=== PATIENT | female | born 1970 | race Caucasian/White ===

== ENCOUNTER 2020-07-26 14:06 | Outpatient (REF) | payer OTHER, SELFPAY ==
[2020-07-26 16:47] LABS: MANUAL DIFF FLAG NO
[2020-07-26 16:50] LABS: Basophils Absolute Auto 0.1 X10*3/uL (0.0-0.2); Basophils Percent Auto 0.6 % (0-2); Eosinophils Absolute Auto 0.2 X10*3/uL (0.0-0.4); Eosinophils Percent Auto 1.7 % (0-4); Hematocrit 44.2 % (37-47); Imm Gran Abs Auto 0.04 X10*3/uL (0.00-0.03); Imm Gran Pct Auto 0.4 % (0.0-0.4); Lymphocytes Absolute Auto 2.2 X10*3/uL (1.2-4.9); Lymphocytes Percent Auto 20.2 % (20-40); Mean Corpuscular HGB Conc 33.9 g/dl (31.0-35.0); Mean Corpuscular Hemoglobin 29.8 pg (27.0-33.0); Mean Corpuscular Volume 87.7 fL (80-98); Mean Platelet Volume 9.6 fL (9.4-12.3); Monocytes Absolute Auto 0.6 X10*3/uL (0.1-1.2); Monocytes Percent Auto 5.9 % (2-11); Neutrophils Absolute Auto 7.6 X10*3/uL (2.0-8.3); Neutrophils Percent Auto 71.2 % (45-73); Platelet Count 400 X10*3/uL (160-400); Red Blood Count 5.04 X10*6/uL (4.20-5.50); Red Cell Distribution Width 12.7 % (11.0-16.0); White Blood Count 10.7 X10*3/uL (4.8-10.8)
[2020-07-26 17:13] LABS: Alanine Aminotransferase 21 U/L (0-31); Albumin Level 4.6 g/dL (3.5-5.0); Alkaline Phosphatase 72 U/L (39-117); Anion Gap 16 (12-20); Aspartate Amino Transferase 18 U/L (5-31); Bilirubin Total 0.9 mg/dL (0.0-1.0); Blood Urea Nitrogen 11 mg/dL (9-16); Calcium 9.7 mg/dL (8.4-10.2); Carbon Dioxide 33 mmol/L (22-29); Chloride 94 mmol/L (96-108); Cholesterol 236 mg/dL; Estimated Glomerular Filt Rate > 60; Glucose Fasting 72 mg/dL (60-99); HDL Cholesterol 62 mg/dL; LDL Cholesterol Calculated 152 mg/dl; Potassium 3.3 mmol/l (3.3-5.1); Sodium 140 mmol/L (135-145); Total Protein 7.9 g/dL (6.5-8.0); Triglycerides 114 mg/dL
[2020-07-26 17:35] LABS: TSH reflex Free T4 1.13 mIU/mL (0.32-4.0)
== END 2020-07-26 14:07 | disposition home or self-care (01) ==
LOC: HO.HMGCLDS 14:06
PROVIDERS: PCP Nurse Practitioner Family; Visit Provider Nurse Practitioner Family
DX: I10 Essential (primary) hypertension (principal)
CPT/HCPCS: 36415; 80053; 80061; 84443; 85025

== ENCOUNTER 2021-03-21 10:30 | Outpatient (REF) | payer OTHER, SELFPAY ==
--- NOTE | 2021-03-21 10:36 | EMG_ITS ---
Right median and ulnar motor and sensory studies were performed. Right radial sensory study was performed and paraspinal muscles were tested. IMPRESSION: This study was unremarkable with no evidence of median or ulnar neuropathy or radiculopathy. MD MILAGROS Saleem/EMILE / [id number]
== END 2021-03-21 10:31 | disposition home or self-care (01) ==
LOC: HO.NEURO 10:30
PROVIDERS: Visit Provider Nurse Practitioner Family
DX: M50.90 Cervical disc disorder, unspecified, unspecified cervical region (principal); R20.0 Anesthesia of skin
CPT/HCPCS: 95886; 95909

== ENCOUNTER 2021-09-24 12:25 | Outpatient (REF) | payer OTHER, SELFPAY ==
[2021-09-24 12:52] LABS: Binax Internal Control QC Valid; Binax Now Covid-19 Ag Negative (Negative); Binax Performed by: HO.BONILM
== END 2021-09-24 12:26 | disposition home or self-care (01) ==
LOC: HO.HMGCLDS 12:25
PROVIDERS: Visit Provider Internal Medicine
DX: Z13.89 Encounter for screening for other disorder (principal)

== ENCOUNTER 2023-02-12 08:49 | Outpatient (REF) | payer OTHER, SELFPAY ==
[2023-02-12 11:40] LABS: Appearance Urine Clear; Color Urine Yellow; Glucose Urine UA Negative (Negative); Leukocyte Esterase Urine Negative (Negative); Nitrite Urine Negative (Negative); PH 7.5 (5.0-9.0); Specific Gravity - Urine <= 1.005 (1.005-1.025); Urine Blood Negative (Negative); Urine Ketones Negative (Negative); Urine Protein Negative (Neg-Trace)
[2023-02-12 11:41] LABS: MANUAL DIFF FLAG NO
[2023-02-12 11:56] LABS: Basophils Absolute Auto 0.1 X10*3/uL (0.0-0.2); Basophils Percent Auto 0.8 % (0-2); Eosinophils Absolute Auto 0.2 X10*3/uL (0.0-0.4); Eosinophils Percent Auto 2.2 % (0-4); Hematocrit 43.4 % (37.0-47.0); Hemoglobin 14.4 g/dl (12.0-16.0); Imm Gran Abs Auto 0.04 X10*3/uL (0.00-0.03); Imm Gran Pct Auto 0.4 % (0.0-0.4); Immature Retic Fraction 3.7 % (3.0-15.9); Lymphocytes Absolute Auto 2.1 X10*3/uL (1.2-4.9); Lymphocytes Percent Auto 19.6 % (20-40); Mean Corpuscular HGB Conc 33.2 g/dl (31.0-35.0); Mean Corpuscular Hemoglobin 28.5 pg (27.0-33.0); Mean Corpuscular Volume 85.8 fL (80.0-98.0); Mean Platelet Volume 9.6 fL (9.4-12.3); Monocytes Absolute Auto 0.6 X10*3/uL (0.1-1.2); Monocytes Percent Auto 5.9 % (2-11); Neutrophils Absolute Auto 7.5 x10*3/uL (2.0-8.3); Neutrophils Percent Auto 71.1 % (45-73); Platelet Count 364 X10*3/uL (160-400); Red Blood Count 5.06 X10*6/uL (4.20-5.50); Red Cell Distribution Width 12.7 % (11.0-16.0); Retic HGB Equivalent 33.8 pg (30.0-35.0); Reticulocyte Percent 1.3 % (0.5-1.8); Reticulocytes Absolute 0.064 X10*6/uL (0.026-0.095); White Blood Count 10.5 X10*3/uL (4.8-10.8)
[2023-02-12 12:09] LABS: Glucose Random 97 mg/dL (60-115)
[2023-02-12 12:21] LABS: Alanine Aminotransferase 18 U/L (0-31); Albumin Level 4.3 g/dL (3.5-5.0); Alkaline Phosphatase 93 U/L (39-117); Anion Gap 12 (12-20); Aspartate Amino Transferase 17 U/L (5-31); Blood Urea Nitrogen 12 mg/dL (9-16); Calcium 9.9 mg/dL (8.4-10.2); Carbon Dioxide 32 mmol/L (22-29); Chloride 100 mmol/L (96-108); Cholesterol 203 mg/dL; Estimated Glomerular Filt Rate > 60; Glucose Fasting 97 mg/dL (60-99); Glucose Random 97 mg/dL (60-115); HDL Cholesterol 61 mg/dL; Iron 66 mcg/dL (30-160); LDL Cholesterol Calculated 116 mg/dl; Percent Iron Saturation 20 % (15-50); Potassium 3.7 mmol/L (3.3-5.1); Sodium 140 mmol/L (135-145); Total Iron Binding Capacity 326 mcg/dL (228-428); Total Protein 7.3 g/dL (6.5-8.0); Triglycerides 130 mg/dL; Unsaturated Iron Binding 260 ug/dL
[2023-02-12 12:38] LABS: Ferritin 109 ng/mL (10-250); Folate 17.9 ng/mL (> or = 4.0); Insulin 10 uU/mL (2-29); TSH reflex Free T4 1.21 uIU/mL (0.32-4.0); Vitamin B12 820 pg/mL (200-900)
[2023-02-14 04:57] LABS: C Peptide 2.71 ng/mL (0.80-3.85); Follicle Stimulating Hormone 34.2 mIU/mL; Lutenizing Hormone 40.7 mIU/mL
[2023-02-17 09:34] LABS: Lyme Abs Screen <0.90 index
[2023-03-11 09:08] LABS: Proinsulin 8.9
[2023-03-11 09:09] LABS: Estradiol Ultra Sensitive 96
[2023-03-11 09:11] LABS: Beta-Hydroxybutyrate 0.05
== END 2023-02-12 08:50 | disposition home or self-care (01) ==
LOC: HO.HMGCLDS 08:49
PROVIDERS: PCP Nurse Practitioner Family; Visit Provider Nurse Practitioner Family
DX: R53.83 Other fatigue (principal); R42 Dizziness and giddiness; I10 Essential (primary) hypertension
CPT/HCPCS: 36415; 80053; 80061; 81003; 82010; 82607; 82670; 82728; 82746; 82947; 83001; 83002; 83525; 83540; 84206; 84443; 84681; 85025; 85045; 86617; 86618; 87086

== ENCOUNTER 2023-11-24 08:07 | Outpatient (AMB) | payer OTHER, SELFPAY ==
--- NOTE | 2023-11-24 07:09 | A.OFFPC_ITS ---
Intake Visit Reasons: Med/labs review [phone] Allergies lisinopril Allergy (Unknown, Verified 02/12/23 08:08) Cough dust mites, ragweed Allergy (Unknown, Uncoded 02/12/23 08:08) Unknown Medication List - Last Reconciled 11/24/23 by MONISHA Jimenez-ANTONIA cholecalciferol (vitamin D3) 50 mcg PO DAILY codeine-guaifenesin 10-200 mg/5 mL 5 mL PO Q6H PRN dexlansoprazole 30 mg PO DAILY furosemide 20 mg PO QAM Lactobacillus acidophilus (Probiotic) 10,000 mmu cells PO DAILY levocetirizine 5 mg PO BEDTIME lisdexamfetamine (Vyvanse) 70 mg PO DAILY lorazepam 1 mg PO DAILY PRN 10 days losartan 25 mg PO DAILY nirmatrelvir-ritonavir 300 mg (150 mg x 2)-100 mg (Paxlovid) take TWO 150 mg tablets of nirmatrelvir with ONE 100 mg tablet of ritonavir twice daily for 5 days PO nortriptyline 50 mg PO BID semaglutide (Ozempic) 0.25 mg (0.368 mL) subcut QWEEK tirzepatide 2.5 mg (0.5 mL) subcut QWEEK 12 weeks Tobacco use date assessed: 02/12/23 HPI Med/labs review [phone] HPI Details Pt's fasting blood sugar was elevated. She also reports weight gain. Will try pt on ozempic. Educated pt on proper diet and portion sizes, which she reports she has already tried. Denies polyuria, polydipsia, and neuropathy. Pt is looking for adderall, told her I can not prescribe this and she needs to get it from her psychiatrist. 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 Daughter No problems noted. 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[employer] Current occupational exposures/hazards: Yes Cognitive needs: No Hearing needs: No Vision needs: No Review of Systems Const Reports as per HPI Physical exam (Primary Care) Tobacco/Smoking Status: Tobacco use Status Tobacco use date assessed 02/12/23 11/24/23 07:10 Patient Tobacco Use Status Never used Tobacco 11/24/23 07:10 e-Cigarette/Vaping Use Never Used 11/24/23 07:10 Const General: cooperative Orientation/consciousness: patient oriented x3 Neuro General: patient oriented x3 Psych Appearance: grossly normal Mental Status: mental status grossly normal Speech and movement: Clear speech present Affect: normal affect Attitude: cooperative Thought process: Normal thought process present Thought content: Normal thought content present Insight: Good insight present (Psych) Judgement: Good judgement present (Psych) Telehealth Telehealth Location of provider rendering services: practice address Location of patient: address on file Patient Identification confirmed using: Name, : Yes Telehealth method: video Patient verbally consented to treatment: Yes Patient verbally consented to billing insurance company: Yes Patient informed of any privacy concerns related to visit: Yes Minutes spent on Phone/Video with Pt.: 10 Assessment and Plan Assessment & Plan (1) ADD (attention deficit disorder): Code(s): F98.8 - Other specified behavioral and emotional disorders with onset usually occurring in childhood and adolescence (2) Elevated fasting blood sugar: Code(s): R73.01 - Impaired fasting glucose Plan: sending ozempic to start (3) Obesity: Code(s): E66.9 - Obesity, unspecified Plan: ozempic sent Plan The patient agreed to the use of a medical information specialist for this encounter. Scribed for CARLO Ybarra by Nanci Vega medical information specialist, on 11/24/2023 at 07:10 EST. Medications: New semaglutide (Ozempic) for 4 weeks 0.25 mg (0.368 mL) subcut QWEEK 3 mL 2RF Coding Level of Care Code Tele Est Pt Level 3 (92703) Diagnoses ADD (attention deficit disorder) F98.8 Elevated fasting blood sugar R73.01 Obesity E66.9
== END 2023-11-24 08:24 | disposition home or self-care (01) ==
LOC: HO.HMGC 08:07
PROVIDERS: PCP Nurse Practitioner Family; Visit Provider Nurse Practitioner Family
DX: F98.8 Other specified behavioral and emotional disorders with onset usually occurring in childhood and adolescence (principal); R73.01 Impaired fasting glucose; E66.9 Obesity, unspecified
CPT/HCPCS: 99213

== ENCOUNTER 2024-02-24 08:17 | Outpatient (AMB) | payer OTHER, SELFPAY ==
--- NOTE | 2024-02-24 08:18 | A.OFFPC_ITS ---
Vital Signs 02/24/24 08:20 Height 5 ft 2.5 in Weight 158 lb BMI 28.4 BP 118/80 Blood Pressure Location Lt brachial Position Sitting Pulse 80 Pulse Source Auscultation Intake Visit Reasons: PE Intake Note: pt is here for annual PE. Mammogram and PAP due Allergies lisinopril Allergy (Unknown, Verified 02/24/24 08:37) Cough dust mites, ragweed Allergy (Unknown, Uncoded 02/24/24 08:37) Unknown Medication List - Last Reconciled 02/24/24 by Jamarcus Castro, MONISHA albuterol sulfate 90 mcg/actuation (Ventolin HFA) 2 puffs inhalation Q6H PRN albuterol sulfate 2.5 mg (3 mL) inhalation QID PRN cholecalciferol (vitamin D3) 50 mcg PO DAILY codeine-guaifenesin 10-200 mg/5 mL 5 mL PO Q6H PRN dexlansoprazole 30 mg PO DAILY dextroamphetamine-amphetamine 30 mg (Adderall) 50 mg PO DAILY furosemide 20 mg PO QAM Lactobacillus acidophilus (Probiotic) 10,000 mmu cells PO DAILY levocetirizine 5 mg PO BEDTIME lorazepam 1 mg PO DAILY PRN 10 days losartan 25 mg PO DAILY nebulizers Nebulizer with supplies nortriptyline 50 mg PO BID semaglutide (Ozempic) 0.5 mg (0.736 mL) subcut QWEEK Tobacco use date assessed: 02/24/24 Dental Screening Dental Screen Date: 02/24/24 Did you have a dental visit in the last 12 months?: No Did you have a dental problem in the last 6 months where you did not have access to dental care?: No Was dental information given to patient?: Patient has dentist HPI HPI Comments History of Present Illness Details Patient is a 53-year-old female in today for a physical exam. Patient is up-to-date with colonoscopy had 1 2 years prior at [facility] due to stomach bleed. Patient will be sending us records. Patient is up-to-date on tetanus next booster shot is due in 2024. Patient has established care with OBGYN and up-to-date with mammograms, gets these through [facility]. Will send us results. She has a past medical history significant for: Reactive airway disease: Currently utilizing albuterol pump and albuterol nebulized, with every day use. Will add Symbicort. ADHD: Patient has establish care with psychiatrist. Utilizing dextroamphetamine-amphetamine 50 mg p.o. daily Hypertension: Patient utilizing losartan 25 mg p.o. daily and furosemide 20 mg in the morning. Anxiety: Utilizing lorazepam 1 mg p.o. daily p.r.n.. Also utilizing nortriptyline 50 mg p.o. b.i.d.. Weight loss: Patient is currently utilizing some egg with tied 0.5 mg subQ weekly. Patient get this through private provider online. Seasonal allergies: Utilizing level cetirizine 5 mg p.o. daily. GERD: Utilizing dexlansoprazole 30 mg po daily. Patient has in referral to Gastroenterology. States she was unable to make her last appointment. Will draw fasting labs. Will include vitamin-D, vitamin B12, vitamin B6. 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 Daughter No problems noted. 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 Current occupational exposures/hazards: Yes Cognitive needs: No Hearing needs: No Vision needs: No Review of Systems Const All systems reviewed & are unremarkable except as noted in HPI and below Physical exam (Primary Care) Vital Signs: Last Vital Signs Pulse 80 02/24/24 08:20 BP 118/80 02/24/24 08:20 Care Plan Goal for BP management: Blood pressure is controlled. BMI result Body Mass Index 28.4 Tobacco/Smoking Status: Tobacco use Status Tobacco use date assessed 02/24/24 02/24/24 08:19 Patient Tobacco Use Status Never used Tobacco 02/24/24 08:18 e-Cigarette/Vaping Use Never Used 02/24/24 08:18 Const Other: Appearance: Alert.? Oriented X3.? No acute distress.? Head: Normocephalic. Eyes: Pupils equal, round and reactive to light.? Sclera white. ENT: Pharynx normal.?TM intact and pearly ballesteros. Neck: Normal inspection.? Neck supple.? CVS: Normal heart rate and rhythm.? Pulses normal.? Respiratory: No respiratory distress.? Breath sounds normal.? Abdomen: Soft and nontender.? Skin: Skin warm and dry.? Normal skin color.? Normal skin turgor.? Extremities: No lower extremity edema. 5/5 strength to bilateral upper and lower extremities Back: No midline tenderness, no C-spine tenderness, full range of motion, no CVA tenderness bilaterally Neuro: Oriented X 3.? No motor deficit.? No sensory deficit. CN 2-12 intact Assessment and Plan Assessment & Plan (1) Physical exam: Comment: Patient is a 53-year-old female in today for a physical exam. Patient is up-to-date with colonoscopy had 1 2 years prior at [facility] due to stomach bleed. Patient will be sending us records. Patient is up-to-date on tetanus next booster shot is due in 2024. Patient has established care with OBGYN and up-to-date with mammograms, gets these through [facility]. Will send us results. She has a past medical history significant for: Reactive airway disease: Currently utilizing albuterol pump and albuterol nebulized, with every day use. Will add Symbicort. ADHD: Patient has establish care with psychiatrist. Utilizing dextroamphetamine-amphetamine 50 mg p.o. daily Hypertension: Patient utilizing losartan 25 mg p.o. daily and furosemide 20 mg in the morning. Anxiety: Utilizing lorazepam 1 mg p.o. daily p.r.n.. Also utilizing nortriptyline 50 mg p.o. b.i.d.. Weight loss: Patient is currently utilizing some egg with tied 0.5 mg subQ weekly. Patient get this through private provider online. Seasonal allergies: Utilizing level cetirizine 5 mg p.o. daily. GERD: Utilizing dexlansoprazole 30 mg po daily. Patient has in referral to Gastroenterology. States she was unable to make her last appointment. Will draw fasting labs. Will include vitamin-D, vitamin B12, vitamin B6. Code(s): Z00.00 - Encounter for general adult medical examination without abnormal findings Plan: Draw fasting labs for Plan Will follow-up with results. Orders: Orders Vitamin B6 Today Z13.21 - Encounter for screening for nutritional disorder Vitamin B12 Today Z13.21 - Encounter for screening for nutritional disorder Hemoglobin A1c Today Z13.1 - Encounter for screening for diabetes mellitus Medications: New budesonide-formoterol 160-4.5 mcg/actuation (Symbicort) 2 puffs inhalation Q12H 10.2 grams 0RF pantoprazole 40 mg PO DAILY 60 tabs 0RF Refilled Lactobacillus acidophilus (Probiotic) 10,000 mmu cells PO DAILY 90 caps 1RF Discontinued dexlansoprazole Discontinued Reason: Doctor's Order 30 mg PO DAILY 90 caps 0RF Coding Level of Care Code Est Pt Prev Care 40-64y(25641) Diagnoses Physical exam Z00.00
[2024-02-24 08:20] VITALS: BP 118/80; PULSE 80; BMI 28.4
== END 2024-02-24 09:02 | disposition home or self-care (01) ==
LOC: HO.HMGC 08:17
PROVIDERS: PCP Nurse Practitioner Family; Visit Provider Nurse Practitioner Primary Care
DX: Z00.00 Encounter for general adult medical examination without abnormal findings (principal)
CPT/HCPCS: 99396

== ENCOUNTER 2024-02-24 09:04 | Outpatient (REF) | payer OTHER, SELFPAY ==
[2024-02-24 11:37] LABS: Estimated Average Glucose 108 mg/dL; Hemoglobin A1c % 5.4 % (<6.0)
[2024-02-24 12:04] LABS: Vitamin B12 819 pg/mL (200-900)
[2024-02-29 15:32] LABS: Vitamin B6 19.8 ng/mL (2.1-21.7)
== END 2024-02-24 09:05 | disposition home or self-care (01) ==
LOC: HO.HMGCLDS 09:04
PROVIDERS: PCP Nurse Practitioner Family; Visit Provider Nurse Practitioner Primary Care
DX: Z13.21 Encounter for screening for nutritional disorder (principal); Z13.1 Encounter for screening for diabetes mellitus
CPT/HCPCS: 36415; 82607; 83036; 84207

== ENCOUNTER 2024-05-12 09:33 | Outpatient (AMB) | payer OTHER, SELFPAY ==
[2024-05-12 09:34] VITALS: BP 122/76; PULSE 72; O2SAT 98; BMI 27.0
--- NOTE | 2024-05-12 09:34 | A.OFFPC_ITS ---
Vital Signs 05/12/24 09:34 Height 5 ft 2.5 in Weight 150 lb BMI 27.0 BP 122/76 Blood Pressure Location Rt brachial Position Sitting Pulse 72 Pulse Source Pulse Oximeter Pulse Oximetry (%) 98 Oxygen Delivery Method Room Air Intake Visit Reasons: 3M F/U Intake Note: pt is here for 3 month follow up Facility Practice Specialist Required: No Accompanied by: Self / Same As Patient Allergies lisinopril Allergy (Unknown, Verified 05/12/24 09:34) Cough dust mites, ragweed Allergy (Unknown, Uncoded 02/24/24 08:37) Unknown Medication List - Last Reconciled 05/12/24 by Shadi Palencia, [facility] albuterol sulfate 2.5 mg (3 mL) inhalation QID PRN budesonide-formoterol 160-4.5 mcg/actuation (Symbicort) 2 puffs inhalation Q12H cholecalciferol (vitamin D3) 50 mcg PO DAILY dextroamphetamine-amphetamine 30 mg (Adderall) 50 mg PO DAILY furosemide 20 mg PO QAM levocetirizine 5 mg PO BEDTIME linaclotide (Linzess) 72 mcg PO DAILY 30 days losartan 25 mg PO DAILY nebulizers Nebulizer with supplies nortriptyline 50 mg PO BID pantoprazole 40 mg PO DAILY semaglutide (Ozempic) 0.5 mg (0.736 mL) subcut QWEEK Ventolin HFA 90 mcg/actuation (albuterol sulfate) 2 puffs inhalation Q6H PRN NS Tobacco use date assessed: 02/24/24 Dental Screening Dental Screen Date: 02/24/24 HPI 3M F/U HPI Details Pt c/o increased fatigue. She had a sleep study in the past which was negative according to pt. Pt reports that she is sleeping at night. She is working approximately 70 hours a week on different shifts. Will order labs. Pt has been on ozempic for 3 months. Pt does report nausea with this med. She reports constipation. Will send linzess. Denies fever, chills, and dizziness. 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 Daughter No problems noted. 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 1. Little interest or pleasure in doing things: several days 2. Feeling down, depressed, or hopeless: not at all 3. Trouble falling or staying asleep, or sleeping too much: not at all 4. Feeling tired or having little energy: not at all 5. Poor appetite or overeating: nearly every day 6. Feeling bad about yourself - or that you are a failure or have let yourself or your family down: not at all 7. Trouble concentrating on things, such as reading the newspaper or watching television: several days 8. Moving or speaking so slowly that other people could have noticed. Or the opposite - being so fidgety or restless that you have been moving around a lot more than usual: not at all 9. Thoughts that you would be better off or of hurting yourself in some way : not at all Total score: 5 Depression Screening Interpretation: Negative Depression Screening Done: Yes 74524 - PHQ-9 Billing: Yes Source: Developed by Drs. Rohan Soriano, Sophia Adams, Jonathan Patten and colleagues, with an educational indu from [employer]. Thrive Questionnaire Date Thrive assessed: 05/12/24 I am a: Patient What is your living situation today?: I have a steady place to live Within the past 12 months, did the food you bought not last and you didn't have the money to get more?: Never true Within the past 12 months, did you worry whether your food would run out before you got money to buy more?: Never true Do you have trouble paying for medicines?: No Do you have trouble getting transportation to medical appointments?: No Do you have trouble paying your heating and electricity bill?: No Do you have trouble taking care of your child, family member or friend?: No Do you have trouble with day-to-day activities such as bathing, preparing meals, shopping, managing finances, etc.?: No Are you currently unemployed and looking for a job?: No Are you interested in more education?: No Please select the resources that you would like help with: None Currently or been in a relationship where the following occur: No concerns reported THRIVE Score: 0 AUDIT C Alcohol Use Questionnaire (AUDIT-C) 1. How often do you have a drink containing alcohol?: Never 2. How many drinks containing alcohol do you have on a typical day when you are drinking?: 1 or 2 3. How often do you have six or more drinks on one occasion?: Never Total Score: 0 Score Reviewed/Action Taken: Yes AUTUMN-7 AMB Questionnaire AUTUMN-7 Date AUTUMN - 7 assessed: 05/12/24 Feeling nervous, anxious, or on edge: 0 = Not at all Not being able to stop or control worryin = More than half the days Worrying too much about different things: 1 = Several days Trouble relaxin = Several days Being so restless that it is hard to sit still: 1 = Several days Becoming easily annoyed or irritable: 0 = Not at all Feeling afraid as if something awful might happen: 0 = Not at all Total AUTUMN-7 score (0-4 normal; 5-9 mild; 10-14 moderate; 15-21 severe): 5 Source: Developed by Drs. Rohan Soriano, Sophia Adams, Jonathan Patten and colleagues, with an educational indu from [employer] AUTUMN-7 Assessment Billing AUTUMN-7 Assessment Tool: AUTUMN-7 Assessment 04346 Review of Systems Const Reports as per HPI Physical exam (Primary Care) Vital Signs: Last Vital Signs Pulse 72 05/12/24 09:34 BP 122/76 05/12/24 09:34 Pulse Ox 98 05/12/24 09:34 Oxygen Delivery Method Room Air 05/12/24 09:34 BMI result Body Mass Index 27.0 Tobacco/Smoking Status: Tobacco use Status Tobacco use date assessed 02/24/24 05/12/24 09:35 Patient Tobacco Use Status Never used Tobacco 05/12/24 09:35 e-Cigarette/Vaping Use Never Used 05/12/24 09:35 PHQ-9: PHQ-9 Score PHQ-9: Total score 5 05/12/24 09:35 Depression Screening Interpretation: Negative Thrive Assessment: Date of Thrive Assessment Date Thrive assessed 05/12/24 05/12/24 09:35 Currently or been in a relationship where the following occur: No concerns reported Const General: cooperative Orientation/consciousness: patient oriented x3 Resp Effort & Inspection: normal respiratory effort Auscultation: clear to auscultation bilaterally Cardio Rate: regular rate Rhythm: regular rhythm Heart sounds: S1 normal heart sound present and S2 normal heart sound present Neuro General: patient oriented x3 Psych Appearance: grossly normal Mental Status: mental status grossly normal Speech and movement: Normal speech and movement present Affect: normal affect Attitude: cooperative Thought process: Normal thought process present Thought content: Normal thought content present Insight: Good insight present (Psych) Judgement: Good judgement present (Psych) Assessment and Plan Assessment & Plan (1) Fatigue: Code(s): R53.83 - Other fatigue (2) Vitamin D deficiency: Code(s): E55.9 - Vitamin D deficiency, unspecified Plan The patient agreed to the use of a biomedical analytical scientist for this encounter. Scribed for MONISHA Ybarra- by Nanci Vega biomedical analytical scientist, on 05/12/2024 at 09:50 EST. Orders: Orders Complete Blood Count Auto Diff Today E55.9 - Vitamin D deficiency, unspecified, R53.83 - Other fatigue Comprehensive [place]. Panel Fast Today E55.9 - Vitamin D deficiency, unspecified, R53.83 - Other fatigue TSH reflex Free T4 Today E55.9 - Vitamin D deficiency, unspecified, R53.83 - Other fatigue UA CC w/rflx Micro + Cult Today E55.9 - Vitamin D deficiency, unspecified, R53.83 - Other fatigue Lipid Panel Today E55.9 - Vitamin D deficiency, unspecified, R53.83 - Other fatigue Vitamin B12 and Folate Today E55.9 - Vitamin D deficiency, unspecified, R53.83 - Other fatigue Vitamin D 25-OH Total Today E55.9 - Vitamin D deficiency, unspecified, R53.83 - Other fatigue Medications: New linaclotide (Linzess) 72 mcg PO DAILY 30 days 30 caps 0RF Coding Level of Care Code Est Pt Level 3 (51929) Diagnoses Fatigue R53.83 Vitamin D deficiency E55.9 Additional Codes AUTUMN-7 Assessment Billing - AUTUMN-7 Assessment Tool: AUTUMN-7 Assessment 50936 ([id number])
== END 2024-05-12 10:14 | disposition home or self-care (01) ==
PROVIDERS: PCP Nurse Practitioner Family; Visit Provider Nurse Practitioner Family
DX: R53.83 Other fatigue (principal); E55.9 Vitamin D deficiency, unspecified
CPT/HCPCS: 99213

== ENCOUNTER 2024-05-12 10:16 | Outpatient (REF) | payer OTHER, SELFPAY ==
[2024-05-12 13:28] LABS: MANUAL DIFF FLAG NO
[2024-05-12 13:32] LABS: Appearance Urine Clear; Color Urine Yellow; Glucose Urine UA Negative (Negative); Leukocyte Esterase Urine Negative (Negative); Nitrite Urine Negative (Negative); PH 7.5 (5.0-9.0); Urine Blood Negative (Negative); Urine Ketones Negative (Negative); Urine Protein Negative (Neg-Trace)
[2024-05-12 13:45] LABS: Basophils Absolute Auto 0.1 X10*3/uL (0.0-0.2); Basophils Percent Auto 0.6 % (0-2); Eosinophils Absolute Auto 0.1 X10*3/uL (0.0-0.4); Eosinophils Percent Auto 0.9 % (0-4); Hemoglobin 14.7 g/dl (12.0-16.0); Imm Gran Abs Auto 0.02 X10*3/uL (0.00-0.03); Imm Gran Pct Auto 0.2 % (0.0-0.4); Lymphocytes Absolute Auto 1.5 X10*3/uL (1.2-4.9); Lymphocytes Percent Auto 13.6 % (20-40); Mean Corpuscular HGB Conc 33.4 g/dl (31.0-35.0); Mean Corpuscular Hemoglobin 29.1 pg (27.0-33.0); Mean Corpuscular Volume 87.1 fL (80.0-98.0); Mean Platelet Volume 9.4 fL (9.4-12.3); Monocytes Absolute Auto 0.4 X10*3/uL (0.1-1.2); Monocytes Percent Auto 3.9 % (2-11); Neutrophils Absolute Auto 9.1 x10*3/uL (2.0-8.3); Neutrophils Percent Auto 80.8 % (45-73); Platelet Count 338 X10*3/uL (160-400); Red Blood Count 5.05 X10*6/uL (4.20-5.50); Red Cell Distribution Width 12.7 % (11.0-16.0); White Blood Count 11.3 X10*3/uL (4.8-10.8)
[2024-05-12 14:06] LABS: Alanine Aminotransferase 18 U/L (0-31); Albumin Level 4.4 g/dL (3.5-5.0); Alkaline Phosphatase 75 U/L (39-117); Anion Gap 13 (12-20); Aspartate Amino Transferase 16 U/L (5-31); Bilirubin Total 0.7 mg/dL (0.0-1.0); Blood Urea Nitrogen 12 mg/dL (9-16); Calcium 10.3 mg/dL (8.4-10.2); Carbon Dioxide 30 mmol/L (22-29); Chloride 100 mmol/L (96-108); Cholesterol 216 mg/dL (<200); Estimated Glomerular Filt Rate 54; Glucose Fasting 98 mg/dL (60-99); HDL Cholesterol 60 mg/dL (>40); LDL Cholesterol Calculated 131 mg/dL (<100); Potassium 3.3 mmol/L (3.3-5.1); Sodium 140 mmol/L (135-145); Total Protein 7.5 g/dL (6.5-8.0); Triglycerides 126 mg/dL (<150)
[2024-05-12 14:25] LABS: TSH reflex Free T4 1.97 uIU/mL (0.32-4.0); Vitamin D 25-OH Total 62.9 ng/mL (>30)
[2024-05-12 14:30] LABS: Folate 12.6 ng/mL (> or = 4.0); Vitamin B12 1387 pg/mL (200-900)
== END 2024-05-12 10:17 | disposition home or self-care (01) ==
LOC: HO.HMGCLDS 10:16
PROVIDERS: PCP Nurse Practitioner Family; Visit Provider Nurse Practitioner Family
DX: Z00.00 Encounter for general adult medical examination without abnormal findings (principal); E55.9 Vitamin D deficiency, unspecified; I10 Essential (primary) hypertension; E78.5 Hyperlipidemia, unspecified; R53.83 Other fatigue
CPT/HCPCS: 36415; 80053; 80061; 81003; 82306; 82607; 82746; 84443; 85025

== ENCOUNTER 2024-05-17 13:47 | Outpatient (REF) | payer OTHER, SELFPAY ==
--- NOTE | ~2024-05-17 | XR_ITS ---
EXAMINATION: XR CHEST CLINICAL INFORMATION: Elevated white blood cell count. COMPARISON: None available. TECHNIQUE: 2 views of the chest were obtained. FINDINGS: No significant abnormality is noted involving the heart, lungs, mediastinum, bony thorax or soft tissues. Vascular clips are seen overlying the anterior chest wall and question mediastinum versus deep medial breasts. XR/XR chest 2V IMPRESSION: No acute disease. Electronically signed by: Gen Quispe MD 05/24/2024 10:34 AM EDT
== END 2024-05-17 13:48 | disposition home or self-care (01) ==
LOC: HO.HMGCX 13:47
PROVIDERS: PCP Nurse Practitioner Family; Visit Provider Nurse Practitioner Family
DX: D72.829 Elevated white blood cell count, unspecified (principal)
CPT/HCPCS: 71046

== ENCOUNTER 2024-07-01 14:03 | Outpatient (REF) | payer OTHER, SELFPAY ==
[2024-07-01 16:02] LABS: MANUAL DIFF FLAG NO
[2024-07-01 16:04] LABS: Appearance Urine Clear; Color Urine Yellow; Glucose Urine UA Negative (Negative); Leukocyte Esterase Urine Negative (Negative); Nitrite Urine Negative (Negative); Urine Blood Negative (Negative); Urine Ketones Negative (Negative); Urine Protein Negative (Neg-Trace)
[2024-07-01 16:05] LABS: Basophils Absolute Auto 0.1 X10*3/uL (0.0-0.2); Basophils Percent Auto 0.6 % (0-2); Eosinophils Absolute Auto 0.2 X10*3/uL (0.0-0.4); Eosinophils Percent Auto 2.2 % (0-4); Hematocrit 42.2 % (37.0-47.0); Hemoglobin 13.9 g/dl (12.0-16.0); Imm Gran Abs Auto 0.04 X10*3/uL (0.00-0.03); Imm Gran Pct Auto 0.4 % (0.0-0.4); Lymphocytes Absolute Auto 1.1 X10*3/uL (1.2-4.9); Lymphocytes Percent Auto 11.2 % (20-40); Mean Corpuscular HGB Conc 32.9 g/dl (31.0-35.0); Mean Corpuscular Hemoglobin 28.8 pg (27.0-33.0); Mean Corpuscular Volume 87.6 fL (80.0-98.0); Mean Platelet Volume 9.1 fL (9.4-12.3); Monocytes Absolute Auto 0.7 X10*3/uL (0.1-1.2); Monocytes Percent Auto 6.7 % (2-11); Neutrophils Percent Auto 78.9 % (45-73); Platelet Count 339 X10*3/uL (160-400); Red Blood Count 4.82 X10*6/uL (4.20-5.50); White Blood Count 10.2 X10*3/uL (4.8-10.8)
[2024-07-01 16:27] LABS: Alanine Aminotransferase 30 U/L (0-31); Albumin Level 4.2 g/dL (3.5-5.0); Alkaline Phosphatase 87 U/L (39-117); Anion Gap 11 (12-20); Aspartate Amino Transferase 22 U/L (5-31); Bilirubin Total 0.8 mg/dL (0.0-1.0); Blood Urea Nitrogen 17 mg/dL (9-16); Calcium 9.7 mg/dL (8.4-10.2); Carbon Dioxide 27 mmol/L (22-29); Chloride 105 mmol/L (96-108); Cholesterol 235 mg/dL (<200); Estimated Glomerular Filt Rate 51; Glucose Fasting 108 mg/dL (60-99); HDL Cholesterol 67 mg/dL (>40); LDL Cholesterol Calculated 130 mg/dL (<100); Potassium 3.9 mmol/L (3.3-5.1); Sodium 139 mmol/L (135-145); Total Protein 7.3 g/dL (6.5-8.0); Triglycerides 193 mg/dL (<150)
[2024-07-01 16:35] LABS: TSH reflex Free T4 1.68 uIU/mL (0.32-4.0); Vitamin D 25-OH Total 53.5 ng/mL (>30)
[2024-07-02 08:23] LABS: HBS Num1 18.48 mIU/mL (0-7.99); HBsAGNum1 0.47 S/CO (0.00-0.99); Hepatitis A Antibody IgM 0.19 Index (0-0.79); Hepatitis B Core Antibody Nonreactive (Nonreactive); Hepatitis B Surface Antigen Negative (Negative); ~HepC Num1 0.11 S/CO (0.00-0.79); ~Hepatitis A Antibody IgM Nonreactive (Nonreactive); ~Hepatitis B Surface Antibody REACTIVE (Nonreactive); ~Hepatitis C Antibody Nonreactive (Nonreactive)
== END 2024-07-01 14:04 | disposition home or self-care (01) ==
LOC: HO.HMGCLDS 14:03
PROVIDERS: PCP Nurse Practitioner Family; Visit Provider Nurse Practitioner Family
DX: E55.9 Vitamin D deficiency, unspecified (principal); R53.83 Other fatigue; Z11.59 Encounter for screening for other viral diseases
CPT/HCPCS: 36415; 80053; 80061; 81003; 82306; 84443; 85025; 86704; 86706; 86709; 86803; 87340

== ENCOUNTER 2024-11-18 11:00 | Outpatient (REF) | payer OTHER, SELFPAY ==
[2024-11-18 13:09] LABS: Lipase 43 U/L (8-78)
[2024-11-18 13:27] LABS: TSH reflex Free T4 1.46 uIU/mL (0.32-4.0)
--- OUTSIDE RECORDS SUMMARY | 2024-11-18 13:44 | XMS_ITS | Clinical Summary ---
Author Organization [facility] Address [address] [place] [address] Phone Care Team Providers Care Lotteries Agent Name Role Phone Sonya Healy MD Primary Care Provider [phone] Allergies No known active allergies Medications losartan [...] to complete this topic [place] [address] MEDICAID - [place] Care Teams Lotteries Agent Relationship Specialty Start Date End Date Sonya Healy MD [address] [place] [phone] PCP - General Internal Medicine 12/20/18
--- OUTSIDE RECORDS SUMMARY | 2024-11-18 13:44 | XMS_ITS | Clinical Summary ---
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
[2024-11-22 14:09] LABS: Transglutaminase IgA <1.0 U/mL
[2024-11-22 14:43] LABS: Thyroid Peroxidase Antibodies <1 IU/mL (<9)
== END 2024-11-18 11:01 | disposition home or self-care (01) ==
LOC: HO.LAB 11:00
PROVIDERS: PCP Nurse Practitioner Family; Visit Provider Nurse Practitioner Family
DX: K59.00 Constipation, unspecified (principal); R10.9 Unspecified abdominal pain; R79.89 Other specified abnormal findings of blood chemistry; K21.9 Gastro-esophageal reflux disease without esophagitis; K59.1 Functional diarrhea; K59.04 Chronic idiopathic constipation; K58.9 Irritable bowel syndrome, unspecified; R14.0 Abdominal distension (gaseous); R11.0 Nausea
CPT/HCPCS: 36415; 83690; 84443; 86364; 86376; 99202

== ENCOUNTER 2024-11-18 11:00 | Outpatient (AMB) | payer OTHER, SELFPAY ==
--- NOTE | 2024-11-18 11:09 | A.OFFVIS_ITS ---
Vital Signs 11/18/24 11:18 Height 5 ft 2 in Weight 151 lb 10.848 oz BMI 27.7 BP 122/82 Blood Pressure Location Rt brachial Position Sitting Pulse 92 Pulse Source Pulse Oximeter Pulse Oximetry (%) 99 Oxygen Delivery Method Room Air Intake Visit Reasons: Sterling scrn Intake Note: NEW PATIENT for initial, routine colo screening. PMHx of GI bleed, seen at [facility]. Prior hx of colo/egd? Sigmoidoscopy 2022. Chief Complaint; C/O abd pain B/L lower quad. Nausea w/o vomiting, reflux w/o dysphagia, constipation w/ relief only by enema. No additional concerns at this time. Cmm Inspector Required: No Accompanied by: Self / Same As Patient Allergies lisinopril Allergy (Unknown, Verified 11/18/24 11:09) Cough dust mites, ragweed Allergy (Unknown, Uncoded 11/18/24 11:09) Unknown HPI HPI Sterling scrn: Details: 54 year old? female with past medical history of leukocytosis, vitamin-D deficiency, asthma, ADD, hypertension is here today for pre colonoscopy screening.? Patient was sent to us by her PCP.? This is her first colonoscopy screening.? However patient does report that she was taught to have GI bleed, hospitalized in 2022 at [facility] and had sigmoidoscopy that was negative.? Denies any personal or family history of gastrointestinal disease, colon polyps, or CRC.? Denies history of difficulty with sedation or anesthesia in the past.? Negative for history of sleep apnea.? Denies any history of cardiac, renal, pulmonary, or hepatic disease.?? No history of infectious? diseases like hepatitis A, B, C, HIV or tuberculosis.? Patient is not on any anticoagulation. Patient reports to have multiple GI concerning symptoms. Frequent abdominal bloating so severe that her abdomen gets very hard and bloated. Patient is having trouble moving her bowels. Patient reports that these symptoms are not new that she has been dealing with this in the past several years. Patient currently is on Mounjaro for weight loss and has been on it for few months. Frequent epigastric pain postprandially as well as acid reflux. Occasional nausea. Patient reports that these symptoms are not new and she has been dealing with a for a long time. Patient currently is taking MiraLax, and Linzess and still is unable to have a bowel movement. Sometimes patient is taking additional laxative, however she is unable to go. 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 Daughter No problems noted. 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 Current occupational exposures/hazards: Yes Cognitive needs: No Hearing needs: No Vision needs: No Review of Systems Const Denies weight gain and Denies weight loss ENT Reports no additional complaints, Denies dysphagia and Denies odynophagia Card Reports no additional complaints Resp Reports no additional complaints GI Denies abdominal pain, Denies belching, Denies melena, Denies bloating, Denies change in bowel habits, Denies dysphagia, Denies excessive flatus, Denies dyspepsia, Denies heartburn, Denies diarrhea, Denies loose stools, Denies nausea, Denies odynophagia and Denies vomiting Musc Reports no additional complaints Neuro Reports no additional complaints Psych Reports no additional complaints Endo Reports no additional complaints Physical Exam Vital Signs: Last Vital Signs Pulse 92 11/18/24 11:18 BP 122/82 11/18/24 11:18 Pulse Ox 99 11/18/24 11:18 Oxygen Delivery Method Room Air 11/18/24 11:18 BMI result Body Mass Index 27.7 Const General: healthy appearing, no acute distress and well developed Nutritional Appearance: well nourished Orientation/consciousness: patient oriented x3 Resp Effort & Inspection: normal respiratory effort, able to speak in complete sentences, no tracheal deviation and symmetric chest movement Auscultation: clear to auscultation bilaterally Cardio Rate: regular rate GI Inspection: Yes normal to inspection and No distended Palpation (GI): Soft to palpation, not firm, nontender and No hepatosplenomegaly present Auscultation: normal bowel sounds General: Yes no CVA tenderness Back/Spine/Pelvis Back: no CVA tenderness Skin General skin exam: elasticity normal, turgor normal and dry skin Neuro General: patient oriented x3 Psych Appearance: grossly normal Mental Status: mental status grossly normal Assessment & Plan Assessment & Plan (1) Diarrhea: Code(s): R19.7 - Diarrhea, unspecified Category: Medical Qualifiers: Diarrhea type: functional diarrhea Qualified Code(s): K59.1 - Functional diarrhea (2) Screening for colon cancer: Code(s): Z12.11 - Encounter for screening for malignant neoplasm of colon Category: Medical (3) Chronic idiopathic constipation: Code(s): K59.04 - Chronic idiopathic constipation (4) IBS (irritable bowel syndrome): Code(s): K58.9 - Irritable bowel syndrome, unspecified Qualifiers: Irritable bowel syndrome type: with constipation Qualified Code(s): K58.1 - Irritable bowel syndrome with constipation (5) Postprandial abdominal bloating: Code(s): R14.0 - Abdominal distension (gaseous) Plan Diarrhea most likely related to her severe constipation. Symptoms of constipation for very long time. Patient will start taking Motegrity and stop Linzess. May take Dulcolax at night time if continues to be constipated. I have discussed with patient the importance of taking enough fiber and using the bathroom when there is an urgency. Will check thyroid study. Patient will start taking Nexium and stop pantoprazole. Patient will take famotidine at bedtime. Encouraged patient to increase fluid intake and activity to promote better bowel motility. Avoid dietary triggers and late night snacking. Staying upright for minimum 3 hours after meals discussed with patient. Patient will follow low FODMAP diet. 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 Frequent gas trapping might cause pain. List of food recommended as well as list of food to avoid given to patient. Patient will follow-up in 2-3 months. Message sent to surgical schedulers to book procedure for patient. She is agreeable to current plan of care and verbalizes understanding of instructions. She was given the opportunity to ask questions and all questions answered. Thank you for allowing me to participate in her care Orders: Orders TSH reflex Free T4 Today K59.00 - Constipation, unspecified Transglutaminase IgA Today R10.9 - Unspecified abdominal pain Thyroid Peroxidase Antibodies Today R79.89 - Other specified abnormal findings of blood chemistry Lipase Today R10.9 - Unspecified abdominal pain Medications: New prucalopride (Motegrity) 2 mg PO DAILY 30 tabs 2RF K59.04 - Chronic idiopathic constipation esomeprazole magnesium (Nexium) 40 mg PO DAILY 30 caps 2RF K21.9 - Gastro- esophageal reflux disease without esophagitis famotidine 40 mg PO BEDTIME 30 tabs 3RF K21.9 - Gastro-esophageal reflux disease without esophagitis Discontinued pantoprazole Discontinued Reason: Doctor's Order 40 mg PO DAILY 90 tabs 1RF linaclotide Discontinued Reason: Doctor's Order 145 mcg PO DAILY 30 days 30 caps 3RF cimetidine Discontinued Reason: Doctor's Order 200 mg PO DAILY 90 tabs 1RF Coding Level of Care Code New Pt Level 4 (93807) Diagnoses Functional diarrhea K59.1 Diarrhea type: functional diarrhea Screening for colon cancer Z12.11 Chronic idiopathic constipation K59.04 Irritable bowel syndrome with constipation K58.1 Irritable bowel syndrome type: with constipation Postprandial abdominal bloating R14.0 Time Spent (min) 45 Comment 30 minutes spent with patient and additional 15 minutes spent reviewing her records
[2024-11-18 11:18] VITALS: BP 122/82; PULSE 92; O2SAT 99; BMI 27.7
--- OUTSIDE RECORDS SUMMARY | 2024-11-18 12:39 | XMS_ITS | Data Portability ---
Author Organization [facility] Address [address] [address] Care Team Providers Care Digital Learning Platforms Manager Name Role Phone KEVIN BONNER Primary Care Provider FARNAZ LINDSAY Referring Provider Assessment Encounter Date Assessment Date Assessment LastModified by Organization Details LastModified Time 11/05/2020 11/05/2020 Radha Nicole is a 50 year old woman with complaints of neck pain and low back pain. Her worse pain is in her low back and radiates into her left lower extremity for the past one month. She is starting physical therapy. On exam, she has pain on flexion and a positive straight leg raising test on the left. I recommend a MRI lumbar spine to elucidate the cause of her pain. She will follow up to review the same and for further treatment plans. I have encouraged to continue physical therapy and discussed the importance of core strengthening. She also has complaints of neck pain radiating into right upper back. She has myofascial pain syndrome in her right upper back. Trigger points were palpated with reproduction of her pain in? ? ?the right trapezius muscle and right paraspinal muscle in? ? ?the cervical spine. Trial of trigger point injection in right trapezius muscle under ultrasound guidance were discussed with her. The risks and benefits of the procedure were discussed and she wishes to proceed and an appointment has been made for the same. [email or web address] Not available 11/08/2020 11:09:52 11/08/2020 11/08/2020 Radha Nicole is a 50 year old woman with complaints of neck pain and low back pain. She also has complaints of neck pain radiating into right upper back. She has myofascial pain syndrome in her right upper back. Trigger points were palpated with reproduction of her pain in? ? ?the right trapezius muscle and right paraspinal muscle in? ? ?the cervical spine. She is here for a trial of trigger point injection in right trapezius muscle under ultrasound guidance . The risks and benefits of the procedure were discussed and she wishes to proceed She is complaining of low back pain radiating into the left lower extremity. On exam ,she has pain on flexion. MRI Lumbar spine shows small bilateral foraminal annular tears at L4-5 level . At L5-S1 level there is diffuse disc bulging with facet spurring. Trial of Lumbar epidural steroid injections under fluoroscopic guidance was recommended. The risks and benefits of the procedure? ? ? were discussed in detail. She wishes to proceed. An appointment has been booked for the same. She needs a driver examiner on the day of the procedure. [email or web address] Not available 11/12/2020 16:25:29 11/13/2020 11/13/2020 Radha Nicole is a 50 year old woman with complaints of low back pain radiating into the left lower extremity. On exam ,she has pain on flexion. MRI Lumbar spine shows small bilateral foraminal annular tears at L4-5 level . At L5-S1 level there is diffuse disc bulging with facet spurring. She is here for a trial of Lumbar epidural steroid injections under fluoroscopic guidance . The risks and benefits of the procedure? ? ? were discussed in detail. She wishes to proceed. She will follow up in four weeks. [email or web address] Not available 11/15/2020 14:57:06 11/11/2021 11/11/2021 Radha Nicole is a 51 year old woman with complaints of neck pain and low back pain. She also has complaints of neck pain radiating into right upper back. She has myofascial pain syndrome in her right upper back. Trigger points were palpated with reproduction of her pain in? ? ?the right trapezius muscle and right paraspinal muscle in? ? ?the cervical spine. I recommend a trigger point injection in right trapezius muscle under ultrasound guidance . The risks and benefits of the procedure were discussed and she wishes to proceed. An appointment has been booked for the same. She needs a driver examiner on the day of the procedure. She is complaining of low back pain radiating into the left lower extremity. On exam ,she has pain on flexion. MRI Lumbar spine shows small bilateral foraminal annular tears at L4-5 level . At L5-S1 level there is diffuse disc bulging with facet spurring. Lumbar epidural steroid injection at L5-S1 level under fluoroscopic guidance was recommended. The risks and benefits of the procedure? ? ? were discussed in detail. She wishes to proceed. Insurance approval needed . She needs a driver examiner on the day of the procedure. [email or web address] Not available 11/11/2021 11:56:01 11/21/2021 11/21/2021 Radha Nicole is a 51 year old woman with complaints of neck pain and low back pain. She also has complaints of neck pain radiating into right upper back. She has myofascial pain syndrome in her right upper back. Trigger points were palpated with reproduction of her pain in? ? ?the right trapezius muscle and right paraspinal muscle in? ? ?the cervical spine. She is here for a trial of trigger point injection in right trapezius muscle under ultrasound guidance . The risks and benefits of the procedure were discussed and she wishes to proceed She is complaining of low back pain radiating into the left lower extremity. On exam ,she has pain on flexion. MRI Lumbar spine shows small bilateral foraminal annular tears at L4-5 level . At L5-S1 level there is diffuse disc bulging with facet spurring. Trial of Lumbar epidural steroid injections under fluoroscopic guidance was recommended. The risks and benefits of the procedure? ? ? were discussed in detail. She wishes to proceed. An appointment has been booked for the same. Insurance approval needed. She needs a driver examiner on the day of the procedure. [email or web address] Not available 11/21/2021 10:32:14 Plan of Treatment Reminders Order Date Submit Date Provider Last Modified By Organization Details Last Modified Time Details Appointments None recorded. Lab None recorded. Referral None recorded. Procedures None recorded. Surgeries None recorded. Imaging MRI, lumbar spine, w/o contrast 2020 021 [facility] ([facility]), [address], [place], [address], 13:35:04 Medication Orders lorazepam 1 mg tablet 2021 022 [facility] #[id number], [address] [place], [address], 10:34:13 Patient TargetsNo targets recorded. Patient Instructions Encounter Date Encounter Id Patient Instructions Last Modified By Organization Details Last Modified Time 11/05/2020 [id number] She was advised against bed rest lasting longer than four days and to continue activities as tolerated. [email or web address] Not available 11/06/2020 09:38:47 11/13/2020 [id number] She was advised against bed rest lasting longer than four days and to continue activities as tolerated. [email or web address] Not available 11/15/2020 14:57:19 11/21/2021 [id number] She was advised against bed rest lasting longer than four days and to continue activities as tolerated. [email or web address] Not available 11/21/2021 10:32:17 Reason for Referral None Reported. Results Created Date Observation Date Name Description Value Unit Range Abnormal Flag Note LastModifiedBy Organization Detail LastModifiedTime 11/07/19 21 11/06/2020 MRI, lumba r spine , w/o contr ast No observ ation record ed. [facility]ri [address] [place] [address], [address], 11/08/2020 14:52:43 11/07/19 21 11/06/2020 MRI, lumba r spine , w/o contr ast [facility] Access ion Number : [id number] Patien t Name: Stephen Verdugo Medica l Record Number : [id number] Date of : 1969 Date of Exam: 2020 Referr ing Physic issac: [facility] [address] - [address] [place] [address] Exam: MR Lumbar Spine (C-) CPT 65128 Room Descri ption: [place] Siem Espr 1.5 HISTOR Y: Back pain and left leg pain. Histor y of multip le falls one week ago. Left leg weakne ss. COMPAR REBECCA: Lumbar spine x-rays , 013. FINDIN GS: ALIGNM ENT, VERTEB MORRIS, MARROW , AND DISCS: Verteb ral body height , curvat ure, and alignm ent are normal . There is disc desicc ation from L2-S1 with minima l disc space narrow ing at L2-3. Bone marrow signal is within normal limits . CONUS: The visual ized lower thorac ic cord is normal in calibe r and signal . The conus termin ates at T12-L1 . PARASP INAL TISSUE S: Retrop eriton eal and glaze handler ior parasp inal soft tissue s are unrema rkable . DETAIL ED FINDIN GS BY LEVEL: L1-L2: There is no signif icant canal or neural forami nal stenos is. L2-L3: There is very minima l disc bulgin g and facet spurri ng withou t canal stenos is. A tiny left forami nal protru severo with annula r tear is noted, though there is no signif icant neural forami nal compro mise. L3-L4: There is minima l disc bulgin g and facet spurri ng withou t canal or neural forami nal stenos is. L4-L5: There is minima l disc bulgin g and facet spurri ng withou t canal stenos is. Small bilate ral forami nal annula r tears are seen. There is only minima l bilate ral neural forami nal stenos is. L5-S1: There is diffus e disc bulgin g with a superi mposed centra l protru severo as well as facet spurri ng, though there is no signif icant canal stenos is. There is minima l left neural forami nal stenos is. IMPRES SEVERO: 1. Only minor degene rative change s are seen as descri bed withou t canal stenos is or eviden ce of nerve root imping ement. Electr onical ly Signed By: Fara hopper [facility] ([facility]) [address], [place], [address], 11/08/2020 14:52:44 Result Notes None recorded. Problems Name Problem SNOMED Code Status Onset Date Resolution Date Notes Provider Name and Address Organization Details Recorded Time Lumbar radiculopathy 775387747 Active Rj farias MD [address] , [address], [place], [address], [place] [facility] 14:42:32 Degeneration of lumbar intervertebral disc 36827596 Active Rj farias MD [address] , [address], [place], [address], [place] [facility] 15:28:42 Degeneration of cervical intervertebral disc 18339762 Active Rj farias MD [address] , [address], [place], [address], [place] [facility] 15:28:59 Muscle pain 55816316 Active Rj farias MD [address] , [address], [place], [address], [place] [facility] 15:29:10 Problem Notes None recorded. Procedures Surgical History Date Name Laterality Status Provider Name and Address Organization Details Recorded Time 11/22/19 22 Trigger Point Injections under ultrasound guidance completed Rj Lynn MD [address] , [address], [place], [address], [place] [facility] 11/21/2021 10:30:39 11/14/19 21 Lumbar Epidural steroid injection under fluoroscopic guidance completed Rj Lynn MD [address] , [address], [place], [address], [place] [facility] 11/15/2020 14:34:49 11/09/19 21 Trigger Point Injections under ultrasound guidance completed Rj Lynn MD [address] , [address], [place], [address], [place] [facility] 11/12/2020 16:21:51 hysterectomy completed Rj Lynn MD [address] , [address], [place], [address], [place] [facility] 11/05/2020 14:43:01 cholecystectomy completed Rj Lynn MD [address] , [address], [place], [address], [place] [facility] 11/05/2020 14:43:09 Breast reduction completed Rj Lynn MD [address] , [address], [place], [address], [place] [facility] 11/05/2020 14:43:22 lumpectomy of breast completed Rj Lynn MD [address] , [address], [place], [address], [place] [facility] 11/05/2020 14:43:36 section completed [facility]j [facility] [address] [facility] [address], [place], [address], [place] [facility] 11/05/2020 14:43:49 Imaging Results Imaging Date Name Status [facility] Details LastModified Time 11/06/2020 MRI, lumbar spine, w/o contrast completed [facility]ri [address] [place], [address], 11/08/2020 14:52:43 11/06/2020 MRI, lumbar spine, w/o contrast completed [facility] ([facility]) [address] [place], [address], 11/08/2020 14:52:44 Procedure Notes None recorded. Medical Equipment None Reported. Allergies No known drug allergies Medications Name Sig Start Date Stop Date Status Note LastModified by Organization Details LastModified Time probiotic acidophilus capsules TK 1 C PO ONCE A DAY 11/11 completed Not Available Not Available Not Available quetiapine 25 mg tablet TAKE 1 TABLET BY MOUTH EVERY DAY AT BEDTIME 11/05 completed Not Available Not Available Not Available cyclobenzap rine 10 mg tablet TK 1 T PO TID 11/05 completed Not Available Not Available Not Available alprazolam 1 mg tablet TK 1 T PO BID FOR 7 DAYS PRN 11/05 completed Not Available Not Available Not Available tizanidine 4 mg tablet TAKE 1 TABLET BY MOUTH EVERY DAY AT BEDTIME FOR 20 DAYS NEEDED FOR MUSCLE SPASTICIT Y active Not Available Not Available No t Available hydrocodone 5 mg-acetamin ophen 325 mg tablet TK 1 T PO Q 6 H PRN 11/05 completed Not Available Not Available Not Available tretinoin 0.025 % topical cream 11/08 completed Not Available Not Available Not Available meloxicam 15 mg tablet TAKE 1 TABLET BY MOUTH EVERY DAY active Not Available Not Available No t Available prednisone 5 mg tablet TK 2 TS PO FOR 7 DAYS THEN 1 T PO BID FOR 2 DAYS THEN 1 T PO ONCE A DAY FOR 2 DAYS 11/05 completed Not Available Not Available Not Available chlorthalid one 25 mg tablet TAKE 1 TABLET BY MOUTH EVERY MORNING 11/11 completed Not Available Not Available Not Available chlorthalid one 50 mg tablet TAKE 1 TABLET BY MOUTH EVERY DAY IN THE MORNING 11/11 completed Not Available Not Available Not Available acetaminoph en 500 mg tablet TAKE 1 TABLET BY MOUTH EVERY 6 HOURS NEEDED FOR PAIN active Not Available Not Available No t Available triamcinolo ne acetonide 0.1 % topical cream APPLY SPARINGLY TO THE AFFECTED AREA TWICE DAILY NEEDED NO MORE THAN 2 WEEKS 11/21 completed Not Available Not Available Not Available amoxicillin 500 mg tablet TAKE 1 TABLET BY MOUTH EVERY 8 HOURS UNTIL GONE 11/11 completed Not Available Not Available Not Available ondansetron 8 mg disintegrat ing tablet TAKE 1 TABLET BY MOUTH EVERY 12 HOURS NEEDED FOR NAUSEA AND VOMITING 11/11 completed Not Available Not Available Not Available pantoprazol e 20 mg tablet,serjio yed release TAKE 1 TABLET BY MOUTH EVERY DAY 11/11 completed Not Available Not Available Not Available lorazepam 0.5 mg tablet TAKE 1 TABLET EVERY DAY BY MOUTH NEEDED FOR 30 DAYS. 15 TO LAST 30 DAYS active Not Available Not Available No t Available dextroamphe tamine-amph etamine 20 mg tablet TK 1 T PO BID 11/05 completed Not Available Not Available Not Available losartan 25 mg tablet TAKE 1 TABLET BY MOUTH EVERY DAY active Not Available Not Available No t Available irbesartan 75 mg tablet TAKE 1 TABLET BY MOUTH EVERY DAY active Not Available Not Available No t Available furosemide 20 mg tablet TAKE 1 TABLET BY MOUTH EVERY MORNING FOR 30 DAYS active Not Available Not Available No t Available gabapentin 100 mg capsule TAKE 1 CAPSULE BY MOUTH THREE TIMES A DAY 11/11 completed Not Available Not Available Not Available lorazepam 1 mg tablet take one tablet the night befpre and one tablet one hour prior to the injection . 2021 active Not Available Not Available Not Avai lable methylpredn isolone 4 mg tablets in a dose pack FPD 11/05 completed Not Available Not Available Not Available albuterol sulfate HFA 90 mcg/actuati on aerosol inhaler INHALE 2 PUFFS PO Q 6 H PRN active Not Available Not Available No t Available fluticasone propionate 50 mcg/actuati on nasal spray,suspe nsion SPRAY 1 SPRAY INTRANASA LLY EVERY 12 HOURS FOR 30 DAYS ADMINISTE R INTO EACH NOSTRIL active Not Available Not Available No t Available naproxen 500 mg tablet TAKE ONE EVERY 12 HOURS NEEDED FOR PAIN 11/21 completed Not Available Not Available Not Available nortriptyli ne 50 mg capsule TAKE 1 CAPSULE BY MOUTH TWICE A DAY active Not Available Not Available No t Available amoxicillin 875 mg-potassiu m clavulanate 125 mg tablet TAKE 1 TABLET BY MOUTH TWICE A DAY FOR 10 DAYS 11/11 completed Not Available Not Available Not Available lactulose 10 gram/15 mL oral solution TK 15 ML PO BID FOR 3 DAYS 11/05 completed Not Available Not Available Not Available chlorhexidi ne gluconate 0.12 % mouthwash RINSE AND SPIT WITH 15 ML BID FOR 7 DAYS 11/08 completed Not Available Not Available Not Available aripiprazol e 2 mg tablet TAKE 1 TABLET BY MOUTH EVERY DAY DIRECTED active Not Available Not Available No t Available quetiapine 50 mg tablet TAKE 1 TO 2 TABLETS BY MOUTH AT BEDTIME 11/05 completed Not Available Not Available Not Available Vyvanse 50 mg capsule TAKE 1 CAPSULE EVERY DAY BY ORAL ROUTE FOR 30 DAYS. 11/11 completed Not Available Not Available Not Available levocetiriz ine 5 mg tablet TAKE 1 TABLET BY MOUTH EVERYDAY AT BEDTIME active Not Available Not Available No t Available Vyvanse 60 mg capsule TAKE 1 CAPSULE BY MOUTH EVERY DAY 11/11 completed Not Available Not Available Not Available Vyvanse 40 mg capsule TK 1 C PO QD UTD 11/05 completed Not Available Not Available Not Available Vitamin D3 50 mcg (2,000 unit) tablet TAKE 1 TABLET BY MOUTH EVERY DAY active Not Available Not Available No t Available Probiotic 10 billion cell capsule TAKE 1 CAPSULE BY MOUTH DAILY active Not Available Not Available No t Available QNASL 80 mcg/actuati on nasal aerosol spray INSTIL 2 SPRAYS IN EACH NOSTRIL ONCE A DAY 11/11 completed Not Available Not Available Not Available Lactobacill us acidophilus 100 mg (1 billion cell) capsule TK 1 C PO ONCE A DAY 11/05 completed Not Available Not Available Not Available Linzess 72 mcg capsule TK 1 C PO AT LEAST 30 MINUTES BEFORE THE FIRST MEAL OF THE DAY ON AN EMPTY STOMACH 11/05 completed Not Available Not Available Not Available COVID-19 test specimen collection TEST DIRECTED TODAY 11/21 completed Not Available Not Available Not Available Flublok Quad (PF) 180 mcg (45 mcg x 4)/0.5 mL IM syringe PHARMACY ADMINISTE RED 11/05 completed Not Available Not Available Not Available Vitals Date Recorded Body height Body mass index (BMI) Body weight Heart rate Oxygen saturation Oxygen saturation in Arterial blood by Pulse oximetry Pain severity - 0-10 verbal numeric rating [Score] - Reported Systolic blood pressure Diastolic blood pressure Provider Name and Address Organization Details Last Updated DateTime 1 162.56 cm 28.3 kg/m2 36242.7 4 g 91 /min 97 % 97 % 9 131 mm[Hg] 92 mm[Hg] Rj farias MD [address] [facility] [place] [address], [place], [address], [place] [facility] 1 14:35:25 Date Recorded Body height Heart rate Oxygen saturation Oxygen saturation in Arterial blood by Pulse oximetry Systolic blood pressure Diastolic blood pressure Provider Name and Address Organization Details Last Updated DateTime 1 162.56 cm 67 /min 97 % 97 % 136 mm[Hg] 88 mm[Hg] Rj farias MD [address] , [address], [place], [address], [place] [facility] 1 13:49:42 Date Recorded Body height Heart rate Oxygen saturation Oxygen saturation in Arterial blood by Pulse oximetry Systolic blood pressure Diastolic blood pressure Provider Name and Address Organization Details Last Updated DateTime 1 162.56 cm 86 /min 92 % 92 % 123 mm[Hg] 85 mm[Hg] Yvonne Gabe [place] [facility] 1 13:37:28 Date Recorded Heart rate Oxygen saturation Oxygen saturation in Arterial blood by Pulse oximetry Systolic blood pressure Diastolic blood pressure Provider Name and Address Organization Details Last Updated DateTime 2 97 /min 99 % 99 % 145 mm[Hg] 90 mm[Hg] Yvonne Bernal [place] [facility] 2 09:31:25 Social History Question Answer Notes LastModified by Organizat ion Details LastModified Time Tobacco Smoking Status Never Smoker Rj Lynn MD [address] , [address], [place], [address], [facility] 11/05/2020 14:45:43 What Is Your Level Of Alcohol Consumption? None Information not available 11/05/2020 Which Illicit Or Recreational Drugs Have You Used? 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 With Others Information not available 11/05/2020 Marital Status Informati on not available 11/05/2020 Sex: Unknown Functional Status None recorded. Mental Status None recorded. Family History Relationship Description Onset Age of this Age Resolved Age Notes LastModified by Organization Details LastModified Time Father Coronary arterioscler osis [email or web address] Not available 09/2020 14:44:59 Father Diverticulit is [email or web address] Not available 09/2020 14:45:16 Mother Coronary arterioscler osis [email or web address] Not available 09/2020 14:44:59 Notes:Wilfrido- veliz virus - Mother Medical History Condition Response Anxiety Disorder Y Arthritis Y Hypertension Y Depression Y Asthma Y Gynecological HistoryNo gynecological history recorded. Obstetrics History GPAL:G 0 P 0 0 0 0 Past Encounters Encounter ID Performer Location Encounter Start Date Encounter Closed Date Diagnosis/Indication Diagnosis SNOMED-CT Code Diagnosis ICD10 Code Diagnosis Note [id number] Rj Lynn MD PAIN OFFICE [address] [facility],[address] [place] [address] 11/05/2020 14:23:35 11/06/2020 09:39:50 Lumbar radiculopathy 941886514 M54.16 Degenerati on of lumbar intervertebral disc 19508723 M51.36 Degenerati on of cervical intervertebral disc 47935968 M50.30 Muscle pain 09773006 M79 .10 [id number] Rj Lynn MD PAIN OFFICE [address] [place] [address] [place] [address] 11/08/2020 13:43:42 11/12/2020 16:26:28 Lumbar radiculopathy 782264621 M54.16 Degenerati on of lumbar intervertebral disc 66324298 M51.36 Degenerati on of cervical intervertebral disc 40326316 M50.30 Muscle pain 64680787 M79 .10 [id number] Rj Lynn MD PAIN OFFICE [address] [place] [address] [place] [address] 11/13/2020 13:22:30 11/15/2020 15:00:13 Lumbar radiculopathy 528112871 M54.16 Degenerati on of lumbar intervertebral disc 64907191 M51.36 Degenerati on of cervical intervertebral disc 18494294 M50.30 Muscle pain 44497388 M79 .10 [id number] Rj Lynn MD PAIN OFFICE [address] [place] [address] [place] [address] 11/11/2021 08:58:38 11/11/2021 11:56:32 Lumbar radiculopathy 807799238 M54.16 Degenerati on of lumbar intervertebral disc 94570161 M51.36 Degenerati on of cervical intervertebral disc 64581475 M50.30 Muscle pain 29451021 M79 .10 [id number] Rj Lynn MD PAIN OFFICE [address] [place] [address] [place] [address] 11/21/2021 09:15:41 11/21/2021 10:38:25 Lumbar radiculopathy 001325804 M54.16 Degenerati on of lumbar intervertebral disc 50261876 M51.36 Degenerati on of cervical intervertebral disc 55121552 M50.30 Muscle pain 27405934 M79 .10 Anxiety 36710051 F41.9 Health Concerns Section Related Observation LastModified by Organization Detai ls LastModified Time None Recorded Concern Status LastModified by Organization Details LastModified Time None Recorded Advance Directives Directive None Recorded Payers Encounter Date Sequence Insurance Name Policy Number Policy Bell Covered Member ID Bell Member ID Guarantor Name 11/05/2020 1 [employer] (MEDICAID HMO) TRACIE Mercado [id number] Radha Nicole 11/08/2020 1 [employer] (MEDICAID HMO) TRACIE Torreso [id number] Radha Nicole 11/13/2020 1 [employer] (MEDICAID HMO) TRACIE Torreso [id number] Radha Nicole 11/11/2021 1 [employer] (MEDICAID HMO) TRACIE Torreso [id number] Radha Nicole 11/21/2021 1 [employer] (MEDICAID HMO) TRACIE Torreso [id number] Radha Nicole Notes Date Note Type Note Provider Name and Address Organization Details Recorded Time 11/05/2020 text/html Radha alcantara is a 50 year old woman with complaints of low back pain radiating into left lower extremity. The pain started many years ago and it is becoming greater over the oast few months. Current pain level is 6-10/10. She describes the pain as a sharp stabbing pain which radiates into her left lower extremity with numbness and weakness. Pain is aggravated by standing and walking and relieved with rest. She has no history of bladder or bowel incontinence. She has had physical therapy with some pain benefit. She has also trialed chiropractic treatment with massage. She had had oral steroids which she states helps temporarily.X-ray of the lumbar spine shows mild degenerative disc disease.She also has neck pain radiating into her right upper back. She has seen Dr. Hatfield who has recommended surgery . MRI Cervical spine shows C5-C6 mild broad-based disc protrusion without spinal canal stenosis. C5-C6 mild right foraminal stenosis due to uncovertebral and facet joint spurs. Rj Lynn MD [address] [facility] , [address], [place], [address], [facility] - Pain Management 11/08/2020 11:09:57 11/08/2020 text/html She is here for a trigger point injection in her right trapezius muscle under ultrasound guidance. Rj Lynn MD [address] [facility] , [address], [place], [address], [place] - Pain Management 11/13/2020 09:46:44 11/13/2020 text/html She is here for a trial of lumbar epidural steroid injection under fluoroscopic guidance. Rj Lynn MD [address] [facility] , [address], [place], [address], [facility] - Pain Management 11/16/2020 08:34:20 11/11/2021 text/html This is a follow up. She was last seen on 11/2020 . She is a 51 year old woman with complaints of low back pain radiating into left lower extremity. The pain started many years ago and it is becoming greater over the past few months. Current pain level is 6-10/10. She describes the pain as a sharp stabbing pain which radiates into her left lower extremity with numbness and weakness. Pain is aggravated by standing and walking and relieved with rest. She has no history of bladder or bowel incontinence. She has had physical therapy with some pain benefit. She has also trialed chiropractic treatment with massage. She had had oral steroids which she states helps temporarily.X-ray of the lumbar spine shows mild degenerative disc disease.She also has neck pain radiating into her right upper back. She has seen Dr. Hatfield who has recommended surgery . MRI Cervical spine shows C5-C6 mild broad-based disc protrusion without spinal canal stenosis. C5-C6 mild right foraminal stenosis due to uncovertebral and facet joint spurs. Rj Lynn MD [address] [facility] , [address], [place], [address], [facility] - Pain Management 11/11/2021 13:54:22 11/21/2021 text/html She is here for a trigger point injection in her right trapezius muscle under ultrasound guidance. Rj Lynn MD [address] [facility] , [address], [place], [address], [facility] 11/21/2021 14:34:18 OBGyn Episode No OBEpisode recorded.
--- OUTSIDE RECORDS SUMMARY | 2024-11-18 12:40 | XMS_ITS | Clinical Summary ---
Author Organization [facility] Address [address] [place] [address] Care Team Providers Care Verifying Specialist Name Role Phone Unavailable Primary Care Provider Unavailabl e Allergies No known active allergies Medications Medication Sig Dispensed Refills Start Date End Date Status Vyvanse 70 MG capsule TAKE 1 CAPSULE BY MOUTH EVERY DAY DIRECTED FOR 30 DAYS 0 11/11/2022 Active irbesartan (AVAPRO) 75 MG tablet irbesartan 75 mg tablet TAKE 1 TABLET BY MOUTH EVERY DAY 0 Active nortriptyline (PAMELOR) 50 MG capsule 0 11/28/2022 Active amphetamine-dextroa mphetamine (ADDERALL XR, 30MG,) 30 MG 24 hr capsule Take 1 capsule (30 mg total) by mouth daily. 15 capsule 0 11/07/2023 Active Active Problems No known active problems Social History Tobacco Use Types Packs/Day Years Used Date Smoking Tobacco: Former Cigarettes Smokeless Tobacco: Former Tobacco Cessation:Counseling Given: Not Answered Sex and Gender Information Value Date Recorded Sex Assigned at Female 02/01/2023 12:25 PM EDT Gender Identity Not on file Sexual Orientation Not on file Job Start Date Occupation Industry Not on file Not on file Not on file Last Filed Vital Signs Vital Sign Reading Time Taken Comments Blood Pressure 130/88 02/01/2023 2:46 PM EDT Pulse 99 02/01/2023 2:46 PM EDT Temperature 36.6 ??C (97.9 ??F) 02/01/2023 2:46 PM ED T Respiratory Rate 18 02/01/2023 2:46 PM EDT Oxygen Saturation 98% 02/01/2023 2:46 PM EDT Inhaled Oxygen Concentration - - Weight 69.9 kg (154 lb) 02/01/2023 12:01 PM EDT Height 160 cm (5' 3 ) 02/01/2023 12:01 PM EDT Body Mass Index 27.28 02/01/2023 12:01 PM EDT Plan of Treatment Health Maintenance Due Date Last Done Comments Hepatitis B Vaccines (1 of 3 - 3-dose series) 1972 Hepatitis C Screening 1972 Depression Screening 1984 Preventative Health Evaluation 02/28/1990 DTap / Tdap / Td (1 - Tdap) 02/28/1991 Cervical Cancer Screening (P ap Smear) 02/28/1993 Colon Cancer Screening (Colonoscopy) 02/28/2017 Breast Cancer Screening (Mammogram) 02/28/2022 Shingrix-Zoster Vaccine (1 of 2) 02/28/2022 COVID-19 Vaccine (2 - 2023-2 5 season) 2024 07/17/2023 Influenza Vaccine (#1) 2024 Pneumococcal Vaccine Aged Out No long er eligible based on patient's age to complete this topic RSV Ped < 20 months Aged Out No longe r eligible based on patient's age to complete this topic
--- OUTSIDE RECORDS SUMMARY | 2024-11-18 12:40 | XMS_ITS | Clinical Summary ---
Author Organization [facility] Address [address] [place] [address] Phone Care Team Providers Care Service Car Driver Name Role Phone Sonya Healy MD Primary Care Provider [phone] Allergies No known active allergies Medications losartan (COZAAR) 25 mg tablet Take 1 tablet (25 mg total) by mouth 1 (one) time each day. Active Active Problems No known active problems Medical History Medical History Date Comments Hypertension DX:Hypertension Depression DX:Depression Adhd DX:ADHD Social History Tobacco Use Types Packs/Day Years Used Date Smoking Tobacco: Former Smokeless Tobacco: Former Alcohol Use Standard Drinks/Week Comments Yes 0 (1 standard drink = 0.6 oz pur e alcohol) Comments Unknown Sex and Gender Information Value Date Recorded Sex Assigned at Not on file Legal Sex Female 3:23 PM EST Gender Identity Not on file Sexual Orientation Not on file Obstetrics History Last Filed Vital Signs Vital Sign Reading Time Taken Comments Blood Pressure 145/91 08/02/2024 11:13 PM EST Pulse 95 08/02/2024 11:13 PM EST Temperature 36.5 ??C (97.7 ??F) 08/02/2024 11:[address] Respiratory Rate 16 08/02/2024 11:13 PM EST Oxygen Saturation 97% 08/02/2024 11:13 PM EST Inhaled Oxygen Concentration - - Weight - - Height - - Body Mass Index - - Plan of Treatment Health Maintenance Due Date Last Done Comments Breast Cancer Screening 1972 DTaP,Tdap,and Td Vaccines (1 - Tdap) 02/28/1991 Hepatitis B Vaccines (1 of 3 - 19+ 3-dose series) 02/28/1991 Cervical Cancer Screening: P ap Smear 02/28/1993 Pneumococcal Vaccine: 50+ Years (2 of 2 - PCV) 02/28/2022 06/05/2010 Zoster Vaccines (1 of 2) 02/28/2022 Colorectal Cancer Screening: Colonoscopy 10/11/2023 Depression Screening 10/11/2023 HIV Screening 10/11/2023 Hepatitis C Screening 10/11/2023 Social Influencers of Health Screening 10/11/2023 Cholesterol Screening (Lipid Panel) 12/10/2027 12/09/2022 Pneumococcal Vaccine: Pediatrics (0 to 5 Years) and At-Risk Patients (6 to 64 Years) Aged Out 06/05/2010 No longer eligible b ased on patient's age to complete this topic COVID-19 Vaccine Completed 06/30/2024, 07/17/2023 Influenza Vaccine Completed 06/30/2024 HIB Vaccines Aged Out No longer eligi ble based on patient's age to complete this topic HPV Vaccines Aged Out No longer eligi ble based on patient's age to complete this topic Hepatitis A Vaccines Aged Out No long er eligible based on patient's age to complete this topic IPV Vaccines Aged Out No longer eligi ble based on patient's age to complete this topic MMR Vaccines Aged Out No longer eligi ble based on patient's age to complete this topic Meningococcal ACWY Vaccine Aged Out N o longer eligible based on patient's age to complete this topic Meningococcal B Vacine Aged Out No lo nger eligible based on patient's age to complete this topic RSV Immunization Patients Under 20 months Aged Out No longer eligible b ased on patient's age to complete this topic Varicella Vaccines Aged Out No longer eligible based on patient's age to complete this topic [place] [address] [place] Care Teams Service Car Driver Relationship Specialty Start Date End Date Sonay Healy MD [address] [place] [address] PCP - General Internal Medicine 12/20/18
--- OUTSIDE RECORDS SUMMARY | 2024-11-18 12:40 | XMS_ITS | Data Portability ---
Author Organization [facility], [facility] Address [address] [place] [address] Care Team Providers Care Licensed Practical Nurse Instructor Name Role Phone KEVIN BONNER Primary Care Provider [phone] Assessment Encounter Date Assessment Date Assessment LastModified by Organization Details LastModified Time 02/16/2024 02/16/2024 CHIEF COMPLAINT: Follow-up right ankle HISTORY OF PRESENT ILLNESS: Radha is a 53-year-old woman who is 9 months status post right peroneus brevis repair, peroneus longus tendon debridement and repair, excision of accessory peroneus quartus tendon and peroneal tenosnovectomy. I last saw her in August 2023. She was doing reasonably well when I last saw her but has failed to improve significantly since that time. She reports 5/10 pain localized to the lateral ankle and hindfoot and swelling in this area. She also has some medial ankle discomfort. She describes burning pain and a tearing sensation. She did not find a brace to be helpful and try to do her braces. She has also been applying an Clay wrap, taking Tylenol and NSAIDs, topical medications and doing home exercises including Theraband strengthening. She completed a course of physical therapy. She is frustrated. She denies any fevers, chills or paresthesias. Past family, medical, social history and review of systems has been reviewed and is located in the patient? s chart. No interval change. PHYSICAL EXAM: General: healthy appearing, in no acute distress Psych: alert and oriented x3, normal mood Skin: intact without ulceration or lesion, normal turgor Lungs: respirations unlabored Cardiac: heart rate regular, normal peripheral pulses Musculoskeletal: She has normal and symmetric foot and ankle alignment. On seated exam, there is mild swelling and tenderness along the peroneal tendons over the incision over the posterolateral ankle and lateral hindfoot. She also has some mild syndesmotic tenderness and medial malleolar/deltoid tenderness. Her incision is well-healed without infectious change. She has good strength with resisted hindfoot eversion and there is no peroneal subluxation. Her ankle is stable. She is distally neurovascularly intact including her sural nerve. IMPRESSION: 9 months postop, peroneal tendinitis and question of recurrent tear PLAN: Given her peroneal tenderness, pain and swelling, I am concerned about peroneal tendinopathy versus recurrent peroneal tendon tear. I have recommended an MRI of the right ankle further evaluate the peroneal tendons. I will speak with her by telephone to discuss the MRI results. She may require further surgery in the form of peroneal tenodesis versus allograft interpositional reconstruction. All questions were answered. Not available 02/16/2024 14:14:13 03/11/2024 03/11/2024 Telemedicine Telephone Encounter Patient Location: Home Physician Location: [place], [place] Time spent with patient: 11 mins CHIEF COMPLAINT: Follow-up right ankle HISTORY OF PRESENT ILLNESS: Radha is a 54-year-old woman who is 10 months status post right peroneus brevis repair, peroneus longus tendon debridement and repair, excision of accessory peroneus quartus tendon and peroneal tenosnovectomy. I last saw 1 month ago. I am speaking with her today by telephone for MRI review. She was doing reasonably initially following surgery but has failed to improve significantly since that time. She reports 5/10 pain localized to the lateral ankle and hindfoot and swelling in this area. She also has some medial ankle discomfort. She describes burning pain and a tearing sensation. She did not find a brace to be helpful and try to do her braces. She has also been applying an Clay wrap, taking Tylenol and NSAIDs, topical medications and doing home exercises including Theraband strengthening. She completed a course of physical therapy. She is frustrated. She denies any fevers, chills or paresthesias. Past family, medical, social history and review of systems has been reviewed and is located in the patient? s chart. No interval change. PHYSICAL EXAM: deferred MRI: Her MRI images from 02/25/2024 were independently reviewed, demonstrating recurrent longitudinal split tear of the peroneus brevis tendon along with peroneal tenosynovitis and peroneus longus tendinosis. IMPRESSION: 10 months postop, peroneal tendinosis/tenosyn ovitis and recurrent peroneus brevis split tear PLAN: I discussed these findings with the patient. 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 I have recommended she wear her ASO brace. She will recheck with us in 2 months for reevaluation. If she fails to improve or reaches a symptomatic tipping point, surgery would include a right revision peroneal tendon repair, peroneal tendon debridement, possible Artelon augmentation, possible peroneal tenodesis, possible allograft reconstruction. I discussed with her the nature and magnitude of such surgery. All questions were answered. This visit was a real-time Telemedicine interaction between a physician in a medical office and patient from their home. The totality of the communication of information exchanged between the physician (myself) and the patient during the course of the synchronous telemedicine service was sufficient to meet the hoffman components and/or requirement of the same service when rendered via a fezl-ry-soql interaction. I discussed with the patient the risks and benefits of telemedicine services and the patient consented to the receipt of such telemedicine services. Not available 03/11/2024 12:11:24 Plan of Treatment Reminders Order Date Submit Date Provider Last Modified By Organization Details Last Modified Time Details Appointments None recorded. Lab None recorded. Referral None recorded. Procedures None recorded. Surgeries None recorded. Imaging MRI, ankle, w/o contrast - RIGHT ANKLE PAIN/SWELL ING-- EVAL TENDONS, CARTILAGE, PERONEALS 2023 024 [facility] ([facility] [address], [place], [address], 4 09:52:52 Medication Orders None recorded. Patient TargetsNo targets recorded. Patient InstructionsNo instructions recorded. Reason for Referral None Reported. Results Created Date Observation Date Name Description Value Unit Range Abnormal Flag Note LastModifiedBy Organization Detail LastModifiedTime 06/2002/25/2024 MRI, ankle , w/o contr ast [facility] Access ion Number : [id number] Patien t Name: Stephen Velasquez Record Number : [id number] Date of : 1969 Date of Exam: 2023 Referr dorothy Physic issac: [facility] [address], [address] [facility] [place] [address] Exam: MR Ankle (C-) CPT 52842 - Right Room Descri ption: Royal GE Pion 3T MR Ankle (C-) CPT 50246 CLINIC AL INDICA TION: Reason For Exam: M25.57 1 - Pain in right ankle and joints of right foot, , RIGHT ANKLE PAIN/S WELLIN G-- EVAL TENDON S, CARTIL AGE, PERONE ALS TECHNI QUE: MR of the right ankle was perfor med withou t intrav enous contra st. COMPAR REBECCA: None FINDIN GS: Bone: Alignm ent and bone marrow signal are within normal limits . No eviden ce of acute fractu re or bone marrow contus ion. Articu lar cartil age: The articu lar cartil age is of normal thickn ess. No focal defect s are seen. Ligame nts: Syndes motic ligame nts are intact . Interm ediate signal within the substa nce of the deltoi d ligame nt and spring ligame nt. Perili gament ous edema signal about the LCL comple x. Lisfra nc ligame nt is intact . Tendon s: Longit udinal split tear of the perone us brevis tendon center ed just distal to the latera l malleo kathy and perone us longus tendin osis. Fluid signal disten ds the perone al tendon sheath . The remain adithya of the flexor and extens or tendon s are intact . Achill es insert ion and planta r fascia are intact . Small planta r calcan eal spur IMPRES SEVERO: Longit udinal split tear of the perone us brevis tendon , perone us longus tendin osis and signs of perone al tenosy noviti s Interm ediate grade sprain s of the deltoi d ligame nt and spring ligame nt Low-gr leroy sprain of the LCL comple x Small planta r calcan eal spur Electr onical ly Signed By: Saeed Brambila rd, MD [email or web address] [facility] ([facility]) [address], [place], [address], 02/25/2024 13:04:31 05/07/20 24 04/01/2021 imagi ng/di agnos tic resul t No observ ation record ed. [email or web address] Not Available 04/09 04:01:06 05/07/20 24 02/12/2021 imagi ng/di agnos tic resul t No observ ation record ed. [email or web address] Not Available 04/09 04:01:10 05/07/20 24 07/29/2019 imagi ng/di agnos tic resul t No observ ation record ed. [email or web address] Not Available 04/09 04:01:17 05/07/20 24 07/29/2019 imagi ng/di agnos tic resul t No observ ation record ed. [email or web address] Not Available 04/09 04:01:18 05/07/20 24 08/21/2020 imagi ng/di agnos tic resul t No observ ation record ed. [email or web address] Not Available 04/09 04:01:52 05/07/20 24 04/09/2023 imagi ng/di agnos tic resul t No observ ation record ed. [email or web address] Not Available 04/09 04:02:24 Result Notes None recorded. Problems Name Problem SNOMED Code Status Onset Date Resolution Date Notes Provider Name and Address Organization Details Recorded Time No complaint s 331298623 Active Status: 'I'; Not Available [facility] 4 09:23:43 Low back pain 145731730 Active 2019 Problem Code: M54.5; Problem Code Type: ICD-10; Status: 'A'; Not Available [facility] 4 11:59:03 Pain of left knee joint 316548200951 107 Active 2019 Problem Code: M25.562; Problem Code Type: ICD-10; Status: 'A'; Not Available [facility] 11:59:03 Degenerat ion of cervical intervert ebral disc 21448123 Active 2019 Problem Code: M50.322; Problem Code Type: ICD-10; Status: 'A'; Not Available [facility] 11:59:03 Problem Notes None recorded. Procedures Surgical History None recorded. Imaging Results Imaging Date Name Status LastModified by Organiz ation Details LastModified Time 02/25/2024 MRI, ankle, w/o contrast completed [email or web address] [facility] [address], [place], [address], 02/25/2024 13:04:31 04/01/2021 imaging/diagn ostic result completed Information not available 05/07/2024 04:01:06 02/12/2021 imaging/diagn ostic result completed Information not available 05/07/2024 04:01:10 07/29/2019 imaging/diagn ostic result completed Information not available 05/07/2024 04:01:17 07/29/2019 imaging/diagn ostic result completed Information not available 05/07/2024 04:01:18 08/21/2020 imaging/diagn ostic result completed Information not available 05/07/2024 04:01:52 04/09/2023 imaging/diagn ostic result completed Information not available 05/07/2024 04:02:24 Procedure Notes None recorded. Medical Equipment None Reported. Allergies No known drug allergies Medications Name Sig Start Date Stop Date Status Note LastModified by Organization Details LastModified Time albuterol sulfate 2.5 mg/3 mL (0.083 %) solution for nebulization USE 2.5 MG (3 ML) INHALED 4 TIMES A DAY NEEDED FOR SHORTNESS OF BREATH OR WHEEZING active Not Available Not Available Not Available ibuprofen 800 mg tablet TAKE 1 TAB BY MOUTH 3 TIMES A DAY NEEDED PAIN active Not Available Not Available No t Available tramadol 50 mg tablet TAKE 1 TABLET BY MOUTH EVERY 4-6 HOURS NEEDED FOR PAIN DO NOT DRIVE WHILE TAKING THIS MEDICATION active Not Available Not Available N ot Available Adderall XR 20 mg capsule,exte nded release TAKE 2 CAPSULES BY MOUTH EVERY DAY IN THE MORNING active Not Available Not Available No t Available Adderall XR 30 mg capsule,exte nded release TAKE 1 CAPSULE BY MOUTH EVERY DAY IN THE MORNING active Not Available Not Available No t Available aspirin 325 mg tablet,delay ed release TAKE 1 TABLET DAILY TO START THE DAY AFTER SURGERY active Not Available Not Available No t Available pantoprazole 40 mg tablet,delay ed release TAKE 1 TABLET BY MOUTH EVERY DAY active Not Available Not Available No t Available losartan 25 mg tablet TAKE 1 TABLET BY MOUTH EVERY DAY active Not Available Not Available No t Available irbesartan 75 mg tablet TAKE 1 TABLET BY MOUTH EVERY DAY active Not Available Not Available No t Available furosemide 20 mg tablet TAKE 1 TABLET BY MOUTH IN THE MORNING active Not Available Not Available Not Available lorazepam 1 mg tablet TAKE 1 TABLET ORALLY DAILY NEEDED FOR ANXIETY FOR 10 DAYS active Not Available Not Available No t Available nortriptylin e 50 mg capsule TAKE 2 CAPSULE BY MOUTH EVERY NIGHT AT BEDTIME & 1 TABLET IN THE MORNING active Not Available Not Available Not Available Ventolin HFA 90 mcg/actuatio n aerosol inhaler INHALE 2 PUFFS EVERY 6 HOURS NEEDED FOR SHORTNESS OF BREATH OR WHEEZING active Not Available Not Available Not Available oxycodone 5 mg tablet TAKE 1 TABLET EVERY 4-6 HRS NEEDED FOR PAIN DO NOT DRIVE WHILE ON THIS/ BEGIN AFTER SUGERY active Not Available Not Available No t Available Adderall XR 25 mg capsule,exte nded release TAKE 2 CAPSULES BY MOUTH EVERY DAY IN THE MORNING active Not Available Not Available No t Available tizanidine 2 mg capsule active Not Available Not Available N ot Available Pain Relief Extra Strength (acetaminoph en) 500 mg tablet TAKE 2 TABLETS EVERY 8 HRS NEEDED PAIN active Not Available Not Available No t Available Symbicort 160 mcg-4.5 mcg/actuatio n HFA aerosol inhaler INHALE 2 PUFFS EVERY 12 HOURS active Not Available Not Available No t Available Vyvanse 30 mg capsule TAKE 1 CAPSULE BY MOUTH EVERY DAY IN THE MORNING active Not Available Not Available No t Available Vyvanse 70 mg capsule TAKE 1 CAPSULE BY MOUTH EVERY DAY DIRECTED FOR 30 DAYS active Not Available Not Available Not Available levocetirizi ne 5 mg tablet TAKE 1 TABLET BY MOUTH AT BEDTIME active Not Available Not Available No t Available diclofenac 1 % topical gel APPLY 1-2 GRAMS 3-4 TIMES PER DAY NEEDED FOR PAIN active Not Available Not Available No t Available Vitamin D3 50 mcg (2,000 unit) tablet 50 MCG ORALLY DAILY active Not Available Not Available No t Available oxycodone HCl-oxycodon e-ASA 1Q 4-[address] WHILE ON THIS MEDICATIONT o begin after sugery 2022 active Statu s: 'Curr ent'; Not Available Not Available Not Available Dexilant 30 mg capsule, delayed release TAKE 1 CAPSULE BY MOUTH EVERY DAY active Not Available Not Available No t Available Vraylar 1.5 mg capsule TAKE 1 CAPSULE BY MOUTH EVERY DAY IN THE EVENING FOR 30 DAYS active Not Available Not Available No t Available Vraylar 3 mg capsule TAKE 1 CAPSULE EVERY DAY BY ORAL ROUTE DIRECTED FOR 30 DAYS, FOR MOOD. active Not Available Not Available No t Available Paxlovid 300 mg (150 mg x 2)-100 mg tablets in a dose pack TAKE 2 TABLETS (NIRMATRELV IR) AND TAKE 1 TABLET (RITONAVIR) BY MOUTH TWICE A DAY FOR 5 DAYS active Not Available Not Available N ot Available Vitals Date Recorded Body height Provider Name an d Address Organization Details Last Updated DateTime 02/16/2024 157.48 cm JEAN PAUL DILLARD [place] - [facility] 02/16/2024 13:53:03 Social History None recorded. Functional Status None recorded. Mental Status None recorded. Family History Nothing Reported. Medical History No medical history recorded. Gynecological HistoryNo gynecological history recorded. Obstetrics History GPAL:G 0 P 0 0 0 0 Past Encounters Encounter ID Performer Location Encounter Start Date Encounter Closed Date Diagnosis/Indication Diagnosis SNOMED-CT Code Diagnosis ICD10 Code Diagnosis Note [id number] MD Lacey Dalal [address] [place] [address] 02/16/2024 13:34:35 03/16/2024 14:33:55 Pain of right ankle joint 4657359614 1006383 M25.571 Peroneal t endinitis of right lower limb 2144488014 84185 M76.71 [id number] MD Lacey Dalal [address] [place] [address] 03/11/2024 10:59:23 04/04/2024 10:12:26 Peroneal tendinitis of right lower limb 5821924414 78887 M76.71 Health Concerns Section Related Observation LastModified by Organization Detai ls LastModified Time None Recorded Concern Status LastModified by Organization Details LastModified Time None Recorded Advance Directives Directive None Recorded Payers Encounter Date Sequence Insurance Name Policy Number Policy Bell Covered Member ID Bell Member ID Guarantor Name 02/16/2024 1 [facility] [employer] [facility] (MEDICAID HMO) TRACIE Mercado [id number] Radha Mercado 03/11/2024 1 [facility] [employer] [facility] (MEDICAID HMO) TRACIE Mercado [id number] Radha Mercado OBGyn Episode No OBEpisode recorded.
== END 2024-11-18 11:39 | disposition home or self-care (01) ==
LOC: HO.HGI 11:00
PROVIDERS: PCP Nurse Practitioner Family; Visit Provider Nurse Practitioner Family
DX: K58.2 Mixed irritable bowel syndrome (principal); R14.0 Abdominal distension (gaseous); Z12.11 Encounter for screening for malignant neoplasm of colon
CPT/HCPCS: 99204

== ENCOUNTER 2025-02-09 07:05 | Outpatient (AMB) | payer OTHER, SELFPAY ==
--- NOTE | 2025-02-09 07:43 | A.OFFPC_ITS ---
Intake Visit Reasons: ED follow up Allergies lisinopril Allergy (Unknown, Verified 02/09/25 07:54) Cough dust mites, ragweed Allergy (Unknown, Uncoded 02/09/25 07:54) Unknown Medication List - Last Reconciled 02/09/25 by Shadi Palencia, [facility]- albuterol sulfate 2.5 mg (3 mL) inhalation QID PRN blood pressure test kit-medium As directed budesonide-formoterol 160-4.5 mcg/actuation (Symbicort) 2 puffs inhalation Q12H cholecalciferol (vitamin D3) 50 mcg PO DAILY dextroamphetamine-amphetamine 30 mg (Adderall) 50 mg PO DAILY esomeprazole magnesium (Nexium) 40 mg PO DAILY famotidine 40 mg PO BEDTIME furosemide 20 mg PO QAM hydrocortisone 2.5% (Proctosol HC) 1 appl DE BID-QID PRN levocetirizine 5 mg PO BEDTIME linaclotide (Linzess) 72 mcg PO DAILY losartan 25 mg PO DAILY nebulizers Nebulizer with supplies nortriptyline 50 mg PO BID potassium chloride ER 20 mEq PO DAILY sumatriptan succinate take 1 tab at onset of headache; if no relief may repeat 1 tab after at least 2 hrs; max = 4 tabs/24 hr PO tirzepatide (Mounjaro) 10 mg subcut QWEEK Ventolin HFA 90 mcg/actuation (albuterol sulfate) 2 puffs inhalation QID NS Tobacco use date assessed: 02/24/24 Dental Screening Dental Screen Date: 02/24/24 HPI ED follow up HPI Details History of Present Illness The patient is a 54-year-old female presenting with symptoms related to chronic constipation and electrolyte imbalances following a recent emergency department visit. On February 02, 2025, she sought emergency care due to general malaise and decreased bowel function accompanied by abdominal cramping. Imaging in the ER revealed moderate stool retention, pointing to constipation, a condition exacerbated by her ongoing GLP-1 agonist therapy. Her constipation had previously been under somewhat control with Linaclotide, but a switch to Prucalopride proved less effective, prompting plans to reinstate Linaclotide. Concurrently, laboratory tests identified low electrolyte levels, including a sodium concentration of 134 mmol/L and potassium at 3.1 mmol/L. She was subsequently prescribed a potassium supplement at 20 mEq twice daily, soon to be reduced to once a day due to supply constraints, with follow-up laboratory evaluations pending. At this juncture, the patient denies experiencing any significant abdominal discomfort, as well as systemic symptoms such as fever, chills, nausea, or vomiting. Review of Systems - Gastrointestinal: Reports decreased stephie wel movements and abdominal cramping; Denies current abdominal pain, nausea, and vomiting. - Constitutional: Reports general malais e during the ER visit; Denies fever, chills. - General: Reports feeling well currentl y. Plan The patient's treatment for constipation will revert to Linaclotide (Linzess) to restore bowel regularity, as her current regimen with Prucalopride was ineffective. Plans to discontinue the GLP-1 agonist may also ameliorate her constipation. Her management for electrolyte imbalance will shift from twice- daily to once-daily potassium supplementation. Follow-up laboratory tests will assess the effectiveness of these changes. 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 Discussion Notes During our discussion, I confirmed with the patient the intention to stop Prucalopride and restart Linaclotide due to its historical efficacy in managing constipation. We discussed the implications of the GLP-1 agonist in exacerbating constipation and her potential discontinuation of this medication. I emphasized the importance of continued potassium supplementation due to her hypokalemia, along with the necessity of repeat laboratory work to monitor sodium and potassium levels. The patient acknowledges understanding the treatment adjustments and agrees to follow with her termite renewal inspector as advised. Patient Instructions - Stop taking Motegrity; restart taking Linzess. - Changes have been made to your potassi um supplement: take 20 mEq once daily. - Schedule a follow-up lab test soon to check your sodium and potassium levels. - Continue seeing your gastroenterologis t for constipation management. - Monitor your symptoms and report any a bdominal pain, worsening constipation, fever, or vomiting to healthcare professionals. - Feel free to reach out for any further concerns or questions about your health plan. 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 Daughter No problems noted. 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[employer] Current occupational exposures/hazards: Yes Cognitive needs: No Hearing needs: No Vision needs: No Questionnaire Thrive Questionnaire Date Thrive assessed: 11/14/24 I am a: Patient What is your living situation today?: I have a steady place to live Within the past 12 months, did the food you bought not last and you didn't have the money to get more?: Never true Within the past 12 months, did you worry whether your food would run out before you got money to buy more?: Sometimes True Do you have trouble paying for medicines?: No Do you have trouble getting transportation to medical appointments?: No Do you have trouble paying your heating and electricity bill?: No Do you have trouble taking care of your child, family member or friend?: No Do you have trouble with day-to-day activities such as bathing, preparing meals, shopping, managing finances, etc.?: No Are you currently unemployed and looking for a job?: No Are you interested in more education?: No Please select the resources that you would like help with: None Currently or been in a relationship where the following occur: No concerns reported THRIVE Score: 1 AUTUMN-7 AMB Questionnaire AUTUMN-7 Date AUTUMN - 7 assessed: 05/12/24 Source: Developed by Drs. Rohan Soriano, Sophia Adams, Jonathan Patten and colleagues, with an educational indu from [employer]. Physical exam (Primary Care) Tobacco/Smoking Status: Tobacco use Status Tobacco use date assessed 02/24/24 05/12/24 09:35 Patient Tobacco Use Status Never used Tobacco 05/12/24 09:35 e-Cigarette/Vaping Use Never Used 05/12/24 09:35 Thrive Assessment: Date of Thrive Assessment Date Thrive assessed 11/14/24 11/14/24 13:41 Currently or been in a relationship where the following occur: No concerns reported Telehealth Telehealth Telehealth Platform: [employer] Location of provider rendering services: practice address Location of patient: address on file Patient Identification confirmed using: Name, : Yes Telehealth method: video Patient verbally consented to treatment: Yes Patient verbally consented to billing insurance company: Yes Patient informed of any privacy concerns related to visit: Yes Minutes spent on Phone/Video with Pt.: 18 Coding Level of Care Code Tele Est Pt Level 4 (31856) Diagnoses Hypokalemia E87.6 Constipation K59.00 Assessment & Plan Assessment & Plan (1) Hypokalemia: Code(s): E87.6 - Hypokalemia Category: Medical (2) Constipation: Code(s): K59.00 - Constipation, unspecified Category: Medical Plan . Orders: Orders Comprehensive [place]. Panel Fast Today E87.6 - Hypokalemia, K59.00 - Constipation, unspecified Lipid Panel Today E87.6 - Hypokalemia, K59.00 - Constipation, unspecified Complete Blood Count Auto Diff Today E87.6 - Hypokalemia, K59.00 - Constipation, unspecified TSH reflex Free T4 Today E87.6 - Hypokalemia, K59.00 - Constipation, unspecified UA CC w/rflx Micro + Cult Today E87.6 - Hypokalemia, K59.00 - Constipation, unspecified Medications: New linaclotide (Linzess) 72 mcg PO DAILY 90 caps 2RF potassium chloride ER 20 mEq PO DAILY 90 tabs 0RF Discontinued prucalopride (Motegrity) Discontinued Reason: Doctor's Order 2 mg PO DAILY 90 tabs 2RF K59.04 - Chronic idiopathic constipation
== END 2025-02-09 08:14 | disposition home or self-care (01) ==
LOC: HO.HMCC 07:06
PROVIDERS: PCP Nurse Practitioner Family; Visit Provider Nurse Practitioner Family
DX: E87.6 Hypokalemia (principal); K59.00 Constipation, unspecified

== ENCOUNTER → 2025-02-09 07:05 | Outpatient (BNVA) | payer OTHER, SELFPAY | PROVIDERS: PCP Nurse Practitioner Family; Visit Provider Nurse Practitioner Family ==

== ENCOUNTER 2025-04-05 15:03 | Outpatient (AMB) | payer OTHER, SELFPAY ==
--- NOTE | 2025-04-05 15:04 | MHC.OFFVIS ---
Vital Signs 04/05/25 15:10 Height 5 ft 2 in Weight 131 lb BMI 24.0 BP 142/90 H Blood Pressure Location Rt brachial Position Sitting Pulse 120 H Pulse Source Pulse Oximeter Pulse Oximetry (%) 95 Oxygen Delivery Method Room Air Intake Visit Reasons: discuss colo Intake Note: ESTABLISHED PATIENT for mgmt of GERD. Review procedure. Labs done. CC; C.O. severe constipation with concerns for possible bowel obstruction / impaction. Pt has been seen at [place] [id number] since last visit with our office. Pt reports taking enema every other day just to have a normal BM. 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 Symptoms of constipation for very long time. Patient will start taking Motegrity and stop Linzess. May take Dulcolax at night time if continues to be constipated. I have discussed with patient the importance of taking enough fiber and using the bathroom when there is an urgency. Will check thyroid study. Patient will start taking Nexium and stop pantoprazole. Patient will take famotidine at bedtime. Encouraged patient to increase fluid intake and activity to promote better bowel motility. Avoid dietary triggers and late night snacking. Staying upright for minimum 3 hours after meals discussed with patient. Patient will follow low FODMAP diet. 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 Frequent gas trapping might cause pain. List of food recommended as well as list of food to avoid given to patient. Patient will follow-up in 2-3 months. Message sent to surgical schedulers to book procedure for patient. She is agreeable to current plan of care and verbalizes understanding of instructions. She was given the opportunity to ask questions and all questions answered. ? Thank you for allowing me to participate in her care Orders TSH reflex Free T4 Today K59.00 Transglutaminase IgA Today R10.9 Thyroid Peroxidase Antibodies Today R79.89 Lipase Today R10.9 New prucalopride (Motegrity) 2 mg PO DAILY 30 tabs 2RF K59.04 esomeprazole magnesium (Nexium) 40 mg PO DAILY 30 caps 2RF K21.9 famotidine 40 mg PO BEDTIME 30 tabs 3RF K21.9 Discontinued pantoprazole Discontinued Reason: Doctor's Order 40 mg PO DAILY 90 tabs 1RF linaclotide Discontinued Reason: Doctor's Order 145 mcg PO DAILY 30 days 30 caps 3RF cimetidine Discontinued Reason: Doctor's Order 200 mg PO DAILY 90 tabs 1RF TODAY'S VISIT: Patient is here today for follow-up and to discuss going for colonoscopy. Patient is frustrated and is severely constipated. Was taking Linzess which was stopped and she started taking Trulance. PCP started her on Linzess 72 mcg and she is taking them both without any effect. Patient is also taking Dulcolax and does enema every couple days. Patient states that when she does enema she only goes very very small amount. Occasionally maybe every several days she will have normal bowel movement. Patient denies any melena, hematochezia. Reports that her abdomen is bloated and she is in pain all the time. Sometimes patient is unable to eat a normal meal because she is so for. She is still on tirzepatide, however she states that this is the maintenance dose and she only has 3 weeks left. Patient would rather not stop, however she notice some improvement in her bowels when the dosed went down. Patient states that she always had trouble moving her bowels even before. Patient denies dyspepsia, dysphagia or odynophagia. Denies any cardiac or respiratory symptoms. Denies any issues with anesthesia in the past. No history of sleep apnea. Not on any anticoagulation medication. 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 Daughter No problems noted. 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[employer] Current occupational exposures/hazards: Yes Cognitive needs: No Hearing needs: No Vision needs: No Review of Systems Const Denies weight gain and Denies weight loss ENT Reports no additional complaints, Denies dysphagia and Denies odynophagia Card Reports no additional complaints Resp Reports no additional complaints GI Reports abdominal pain, Denies belching, Denies melena, Denies bloating, Denies change in bowel habits, Reports constipation, Denies dysphagia, Denies excessive flatus, Denies dyspepsia, Denies heartburn, Denies diarrhea, Denies loose stools, Denies nausea, Denies odynophagia and Denies vomiting Reports no additional complaints Musc Reports no additional complaints Neuro Reports no additional complaints Psych Reports no additional complaints Endo Reports no additional complaints Physical Exam Vital Signs: Last Vital Signs Pulse 120 H 04/05/25 15:10 BP 142/90 H 04/05/25 15:10 Pulse Ox 95 04/05/25 15:10 Oxygen Delivery Method Room Air 04/05/25 15:10 BMI result Body Mass Index 24.0 Const General: healthy appearing, no acute distress and well developed Nutritional Appearance: well nourished Orientation/consciousness: patient oriented x3 Resp Effort & Inspection: normal respiratory effort, able to speak in complete sentences, no tracheal deviation and symmetric chest movement Auscultation: clear to auscultation bilaterally Cardio Rate: regular rate GI Inspection: Yes normal to inspection and No distended Palpation (GI): Soft to palpation, not firm, nontender and No hepatosplenomegaly present Auscultation: normal bowel sounds General: Yes no CVA tenderness Back/Spine/Pelvis Back: no CVA tenderness Skin General skin exam: elasticity normal, turgor normal and dry skin Neuro General: patient oriented x3 Psych Appearance: grossly normal Mental Status: mental status grossly normal Assessment & Plan Assessment & Plan (1) Diarrhea: Code(s): R19.7 - Diarrhea, unspecified Category: Medical Qualifiers: Diarrhea type: functional diarrhea Qualified Code(s): K59.1 - Functional diarrhea (2) Screening for colon cancer: Code(s): Z12.11 - Encounter for screening for malignant neoplasm of colon Category: Medical (3) Chronic idiopathic constipation: Code(s): K59.04 - Chronic idiopathic constipation (4) Irritable bowel syndrome: Code(s): K58.9 - Irritable bowel syndrome, unspecified Qualifiers: Irritable bowel syndrome type: without diarrhea Qualified Code(s): K58.9 - Irritable bowel syndrome, unspecified (5) Postprandial abdominal bloating: Code(s): R14.0 - Abdominal distension (gaseous) Plan Patient will start Linzess 290 mcg. Increase fluid intake and activity to promote better bowel motility. Patient can take Dulcolax and the knee. Encouraged her not to do enemas. Will schedule her for colonoscopy. Patient will do magnesium citrate 2 days before procedure and day before procedure she will do MiraLax prep and Dulcolax. What to expect before during and after procedure discussed with patient. Stressed the importance of good bowel prep and clear liquid diet day before procedure. Patient is agreeable to this plan and verbalizes understanding of instructions. She was given the opportunity to ask questions and all questions answered. Thank you for allowing me to participate in her care Medications: New polyethylene glycol 3350 (Miralax) As directed by gastroenterology department at [facility] 238 grams PO ONCE 238 grams 0RF Z12.11 - Encounter for screening for malignant neoplasm of colon linaclotide (Linzess) 290 mcg PO QAM 30 caps 4RF K59.00 - Constipation, unspecified magnesium citrate Drink one bottle at 14:00 and 2nd bottle at 17:00 296 mL PO ONCE 296 mL 4RF Z12.11 - Encounter for screening for malignant neoplasm of colon bisacodyl (Dulcolax (bisacodyl)) 10 mg (2 x 5 mg) PO BEDTIME 180 tabs 4RF Discontinued linaclotide (Linzess) Discontinued Reason: Doctor's Order 72 mcg PO DAILY 90 caps 2RF Coding Level of Care Code Est Pt Level 4 (98103) Complex EM visit Add On G2211 Diagnoses Functional diarrhea K59.1 Diarrhea type: functional diarrhea Screening for colon cancer Z12.11 Chronic idiopathic constipation K59.04 Irritable bowel syndrome without diarrhea K58.9 Irritable bowel syndrome type: without diarrhea Postprandial abdominal bloating R14.0 Time Spent (min) 35 Comment In 5 minutes spent with patient and additional 10 minutes spent reviewing her records
[2025-04-05 15:10] VITALS: BP 142/90; PULSE 120; O2SAT 95; BMI 24.0
--- OUTSIDE RECORDS SUMMARY | 2025-04-05 15:47 | XMS_ITS | Clinical Summary ---
Author Organization [facility] Address [address] [place] [address] Phone Care Team Providers Care Modular Set Crew Member Name Role Phone Sonya Healy MD Primary Care Provider [phone] Allergies Active Allergy Reactions Criticality Noted Date Comments House Dust 02/02/2025 Medications losartan (COZAAR) 25 mg tablet Take 1 tablet (25 mg total) by mouth 1 (one) time each day. Active LORazepam (Ativan) 1 mg tablet Take 1 tablet (1 mg total) by mouth at bedtime for 7 days. Max Daily Amount: 1 mg 7 tablet 5 Active polyethylene glycol (MIRALAX) 17 gram packet Take MiraLAX 3 times a day for 2 days 51 g 5 Active ondansetron ODT (ZOFRAN-ODT) 4 mg disintegrating tablet Dissolve 1 tablet (4 mg total) on top of the tongue every 8 (eight) hours if needed for nausea or vomiting for up to 5 days. 15 tablet 5 03/30/20 25 traMADoL (ULTRAM) 50 mg tablet Take 1 tablet (50 mg total) by mouth every 6 (six) hours if needed for severe pain for up to 3 days. Max Daily Amount: 200 mg 12 tablet 5 03/28/20 25 Active Problems No known active problems Encounters Date Type Department Care Team Description 03/25/2025 4:44 AM EDT - 03/25/2025 6:15 AM EDT Emergency [facility] Emergency [address] [facility] [address] Trisha Ford MD Kidney stone on left side (Primary Dx); Constipation, unspecified constipation type Discharge Disposition: Home or Self Care 02/02/2025 11:02 PM EDT - 02/03/2025 3:45 AM EDT Emergency [facility] Emergency [address] [facility] [id number] Joel Hobson MD Hypokalemia (Primary Dx); Constipation, unspecified constipation type; Hyponatremia Discharge Disposition: Home or Self Care from Last 3 Months Medical History Medical History Date Comments Hypertension DX:Hypertension Depression DX:Depression Adhd DX:ADHD Social History Tobacco Use Types Packs/Day Years Used Date Smoking Tobacco: Former Smokeless Tobacco: Former Alcohol Use Standard Drinks/Week Comments Yes 0 (1 standard drink = 0.6 oz pur e alcohol) Comments Unknown Sex and Gender Information Value Date Recorded Sex Assigned at Female 02/02/2025 11:53 PM EDT Legal Sex Female 3:23 PM EST Gender Identity Female 02/02/2025 11:53 PM EDT Sexual Orientation Straight 02/02/2025 11 :53 PM EDT Obstetrics History Last Filed Vital Signs Vital Sign Reading Time Taken Comments Blood Pressure 137/93 03/25/2025 4:35 AM EDT Pulse 71 03/25/2025 4:35 AM EDT Temperature 37.1 C (98.7 F) 03/25/2025 4:41 AM EDT Respiratory Rate 18 03/25/2025 4:35 AM EDT Oxygen Saturation 98% 03/25/2025 4:35 AM EDT Inhaled Oxygen Concentration - - Weight 59.9 kg (132 lb) 03/25/2025 4:38 AM EDT Height 157.5 cm (5' 2 ) 03/25/2025 4:38 AM EDT Body Mass Index 24.14 03/25/2025 4:38 AM EDT Plan of Treatment Health Maintenance Due Date Last Done Comments Breast Cancer Screening 1970 DTaP,Tdap,and Td Vaccines (1 - Tdap) 02/28/1991 Hepatitis B Vaccines (1 of 3 - 19+ 3-dose series) 02/28/1991 Cervical Cancer Screening: P ap Smear 02/28/1993 Pneumococcal Vaccine: 50+ Years (2 of 2 - PCV) 02/28/2022 06/05/2010 Zoster Vaccines (1 of 2) 02/28/2022 Colorectal Cancer Screening: Colonoscopy 10/11/2023 HIV Screening 10/11/2023 Hepatitis C Screening 10/11/2023 Social Influencers of Health Screening 10/11/2023 Depression Screening 09/07/2024 Influenza Vaccine (#1) 2025 06/30/2024 Cholesterol Screening (Lipid Panel) 12/10/2027 12/09/2022 COVID-19 Vaccine Completed 06/30/2024, 07/17/2023 HIB Vaccines Aged Out No longer eligi [...] age to complete this topic Meningococcal B Vaccine Aged Out No l onger eligible based on patient's age to complete this topic RSV Immunization Patients Under 20 months Aged Out No longer eligible b ased on patient's age to complete this topic Varicella Vaccines Aged Out No longer eligible based on patient's age to complete this topic Procedures Procedure Name Priority Date/Time Associated Diagnosis Comments CT ABDOMEN PELVIS WO CONTRAST STAT 03/25/2025 5:17 AM EDT CBC WITH AUTO DIFFERENTIAL STAT 03/25/2025 5:12 AM EDT BASIC METABOLIC PANEL STAT 03/25/2025 5:12 AM EDT CBC AND DIFFERENTIAL STAT 03/25/2025 5:12 AM EDT URINALYSIS WITH REFLEX MICROSCOPIC AND CULTURE STAT 03/25/2025 4:29 AM EDT URINALYSIS WITH REFLEX MICROSCOPIC AND CULTURE STAT 03/25/2025 4:[address] ABDOMEN PELVIS W CONTRAST STAT 02/03/2025 2:24 AM EDT THYROID STIMULATING HORMONE WITH REFLEX FREE T4 STAT 02/03/2025 12:19 AM EDT TROPONIN I HIGH SENSITIVITY STAT 02/03/2025 12:19 AM EDT RHYTHM ECG, REPORT Routine 02/02/2025 11 :57 PM EDT ECG 12-LEAD STAT 02/02/2025 11:13 PM EDT MAGNESIUM Add-On 02/02/2025 11:08 PM EDT CBC WITH AUTO DIFFERENTIAL STAT 02/02/2025 11:08 PM EDT LIPASE STAT 02/02/2025 11:08 PM EDT COMPREHENSIVE METABOLIC PANEL STAT 02/02/2025 11:08 PM EDT CBC AND DIFFERENTIAL STAT 02/02/2025 11:08 PM EDT from Last 3 Months Results * CT Abdomen Pelvis wo Contrast (03/25/2025 5:17 AM EDT) Anatomical Region Laterality Modality Body Computed Tomogra phy 03/25/2025 5:33 AM EDT Impressions 03/25/2025 5:42 AM EDT 1. No acute intra-abdominal or pelvic process. 2. Nonobstructing left nephrolithiasis. 3. Moderate colonic stool Report reviewed and signed by : Dr. Pedro Palomino on 03/25/2025 5:42 AM. Workstation Name - [id number] -------- FINAL REPORT -------- Dictated By: Pedro Palomino Dictated Date: 03/25/2025 05:33 ET Assigned Physician: Pedro Palomino Reviewed and Electronically Signed By: Pedro Palomino Signed Date: 03/25/2025 05:42 ET Workstation ID: [id number] Transcribed By: Self Edit Transcribed Date: 03/25/2025 05:33 ET Narrative 03/25/2025 5:[address] ABDOMEN PELVIS WO CONTRAST HISTORY: 55 years Female Abdominal pain, acute, nonlocalized TECHNIQUE: CT abdomen, and pelvis was performed without contrast. Multiplanar reformats were reviewed. Dose reduction techniques were used including automated exposure control and adjustment of mA and/or KV according to patient size. COMPARISON: CT of the abdomen and pelvis 02/03/2025 FINDINGS: The lack of intravenous contrast limits assessment of the abdominal viscera. No significant abnormality in the lungs. No significant abnormality in the liver. No significant abnormality in the adrenals. 2 mm calculus within the left kidney. No right renal calculi. No hydronephrosis. No significant abnormality in the spleen. No significant abnormality in the pancreas. Gallbladder is not seen and likely has been surgically removed. No bowel obstruction or bowel thickening. No appendicitis. No pneumoperitoneum. No significant lymphadenopathy. No abdominal aortic aneurysm. No significant abnormality in the pelvis. No acute osseous findings. Moderate to severe degenerative disc disease at L5-S1. Moderate stool within the colon most notable within the descending colon Procedure Note Pedro Palomino MD - 03/25/2025 CT ABDOMEN PELVIS WO CONTRAST HISTORY: 55 years Female Abdominal pain, acute, nonlocalized TECHNIQUE: CT abdomen, and pelvis was performed without contrast.Multiplanar reformats were reviewed. Dose reduction techniques were usedincluding automated exposure control and adjustment of mA and/or KVaccording to patient size. COMPARISON: CT of the abdomen and pelvis 02/03/2025 FINDINGS: The lack of intravenous contrast limits assessment of the abdominalviscera. No significant abnormality in the lungs. No significant abnormality in the liver. No significant abnormality in the adrenals. 2 mm calculus within the left kidney. No right renal calculi. Nohydronephrosis. No significant abnormality in the spleen. No significant abnormality in the pancreas. Gallbladder is not seen and likely has been surgically removed. No bowel obstruction or bowel thickening. No appendicitis. No pneumoperitoneum. No significant lymphadenopathy. No abdominal aortic aneurysm. No significant abnormality in the pelvis. No acute osseous findings. Moderate to severe degenerative disc diseaseat L5-S1. Moderate stool within the colon most notable within the descending colon IMPRESSION: 1. No acute intra-abdominal or pelvic process. 2. Nonobstructing left nephrolithiasis. 3. Moderate colonic stool Report reviewed and signed by : Dr. Pedro Palomino on 03/25/2025 5:42AM. Workstation Name - [id number] -------- FINAL REPORT -------- Dictated By: Pedro Palomino Dictated Date: 03/25/2025 05:33 ET Assigned Physician: Pedro Palomino Reviewed and Electronically Signed By: Pedro Palomino Signed Date: 03/25/2025 05:42 ET Workstation ID: [id number] Transcribed By: Self Edit Transcribed Date: 03/25/2025 05:33 ET us Trisha Ford MD IMG CT PROCEDURES Final Resu lt * (ABNORMAL) CBC auto differential (03/25/2025 5:12 AM EDT) Only the most recent of2 resultswithin the time period is included. WBC 11.4(H) 4.0 - 10.5 K/mcL LAB [facility] RBC 4.35 4.20 - 5.40 M/mcL LAB HEM[facility]OLOGY [facility]25 [facility] Hemoglobin 12.6 12.5 - 16.0 g/dL LAB HEMETOLOGY METHOD 03/25[facility]2025 [facility] Hematocrit 38.0 37.0 - 47.0 % LAB HEMETOLOGY METHOD 03/25/2025 5:[facility] MCV 87.4 78.0 - 100.0 FL LAB HEMETOLOGY METHOD 03/25/2025 5:30 [facility] MCH 29.0 25.0 - 33.0 pcg LAB HEMETOLOGY METHOD 03/25/2025 5:[facility] MCHC 33.2 32.0 - 36.0 g/dL LAB HEMETOLOGY METHOD 03/25/2025 5:[facility] RDW 13.3 12.1 - 16.2 % LAB HEMETOLOGY METHOD 03/25/2025 5:[facility] Platelets 309 150 - 450 K/mcL LAB HEMETOLOGY METHOD 03/25[facility]2025 5[facility] MPV 9.2 7.4 - 11.4 FL LAB HEMETOLOGY METHOD 03/25/2025 5:30 AM [facility] Neutrophils Relative 65.0 44.0 - 74.0 % LAB HEMETOLOGY METHOD 03/25/2025 5:30 AM [facility] Lymphocytes Relative 25.1 20.0 - 48.0 % LAB HEMETOLOGY METHOD 03/25/2025 5:30 AM [facility] Monocytes Relative 6.6 2.0 - 12.0 % LAB HEMETOLOGY METHOD 03/25/2025 5:30 AM [facility] Eosinophils Relative 2.6 0.0 - 6.0 % LAB HEMETOLOGY METHOD 03/25/2025 5:30 AM [facility] Basophils Relative 0.4 0.0 - 2.0 % LAB HEMETOLOGY METHOD 03/25/2025 5:30 AM [facility] Neutrophils Absolute 7.42 1.80 - 7.80 K/mcL LAB HEMETOLOGY METHOD 03/25/2025 5:30 AM [facility] Lymphocytes Absolute 2.87 1.00 - 3.20 K/mcL LAB HEMETOLOGY METHOD 03/25/2025 5:30 AM EDT [facility] Monocytes Absolute 0.75 0.00 - 0.80 K/mcL LAB HEMETOLOGY METHOD 03/25/2025 5:30 AM EDT [facility] Eosinophils Absolute 0.30 0.00 - 0.50 K/mcL LAB HEMETOLOGY METHOD 03/25/2025 5:30 AM EDT [facility] Basophils Absolute 0.05 0.00 - 0.20 K/mcL LAB HEMETOLOGY METHOD 03/25/2025 5:30 AM EDT [facility] Blood Venous blood specimen / Unknown Venipuncture / Unknown 03/25/2025 5:12 AM EDT 03/25/2025 5:18 AM EDT us Lis Ileana Ford MD LAB BLOOD ORDERABLES Final R esult [facility] [address] [place] [address], [place] [phone] * Basic metabolic panel (03/25/2025 5:12 AM EDT) Sodium 138 135 - 145 mmol/L LAB CHEMISTRY METHOD 03/25/2025 5:40 AM [facility] Potassium 3.6 3.5 - 5.1 mmol/L LAB CHEMISTRY METHOD 03/25/2025 5:40 AM [facility] Chloride 102 98 - 107 mmol/L LAB CHEMISTRY METHOD 03/25/2025 5:40 AM [facility] CO2 29 24 - 32 mmol/L LAB CHEMISTRY METHOD 03/25/2025 5:40 AM [facility] Anion Gap 7 5 - 14 LAB CHE[facility]STRY METHOD 03/25[facility]2025 5:[facility] Glucose 113 70 - 199 mg/dL LAB CHEMISTRY METHOD 03/25/2025 5:40 AM EDT [facility] BUN 15 7 - 17 mg/dL LAB CHEMISTRY METHOD 03/25/2025 5:40 AM EDT [facility] Creatinine 0.98 0.50 - 1.00 mg/dL LAB CHEMISTRY METHOD 03/25/2025 5:40 AM EDT [facility] eGFR 69 >=60 mL/min/1. 73m2 LAB CHEMISTRY METHOD 03/25/2025 5:40 AM EDT [facility] Comment:Calculation based on the Chronic Kidney Disease Epidemiology Collaboration (CKD-EPI) equation refit without adjustment for race. BUN/Creatinine Ratio 15.3 12.0 - 20.0 LAB CHEMISTRY METHOD 03/25/2025 5:40 AM EDT [facility] Calcium 8.8 8.4 - 10.2 mg/dL LAB CHEMISTRY METHOD 03/25/2025 5:40 AM EDT [facility] Blood Venous blood specimen / Unknown Venipuncture / Unknown 03/25/2025 5:12 AM EDT 03/25/2025 5:18 AM EDT us Lis Ileana Ford MD LAB BLOOD ORDERABLES Final R esult [facility] [address] [place] [address], [place] [phone] * (ABNORMAL) Urinalysis with reflex microscopic and culture (03/25/2025 4:29 AM EDT) Color, Urine Yellow Colorless, Yellow LAB URINALYSIS - AUTOMATED METHOD 03/25/2025 4:38 AM EDT [facility] Clarity, Urine Clear Clear LAB URINALYSIS - AUTOMATED METHOD 03/25[facility]2025 4:[facility] Specific [place] Urine 1.025 1.005 - 1.030 LAB URINALYSIS - AUTOMATED METHOD 03/25/2025 4:38 AM [facility] pH, Urine 6.0 5.0 - 8.0 pH LAB URINALYSIS - AUTOMATED METHOD 03/25/2025 4:38 AM [facility] Leukocytes, Urine Negative Negative WBCs/mcL LAB URINALYSIS - AUTOMATED METHOD 03/25/2025 4:38 AM [facility] Nitrite, Urine Negative Negative LAB URINALYSIS - AUTOMATED METHOD 03/25/2025 4:38 AM [facility] Protein, Urine Negative Negative mg/dL LAB URINALYSIS - AUTOMATED METHOD 03/25/2025 4:38 AM [facility] Glucose, Urine Negative Negative mg/dL LAB URINALYSIS - AUTOMATED METHOD 03/25/2025 4:38 AM [facility] Ketones, Urine Trace(A) Negative mg/dL LAB URINALYSIS - AUTOMATED METHOD 03/25/2025 4:38 AM [facility] Blood, Urine Negative Negative mg/dL LAB URINALYSIS - AUTOMATED METHOD 03/25/2025 4:38 AM [facility] Urine Urine specimen obtained by clean catch procedure / Unknown Non-blood Collection / Unknown 03/25/2025 4:29 AM EDT 03/25/2025 4:35 AM EDT us Lis Ileana Ford MD LAB URINE ORDERABLES Final R esult [facility] [address] [place] [address], [place] [phone] * CT Abdomen Pelvis w Contrast (02/03/2025 2:24 AM EDT) Anatomical Region Laterality Modality Body Computed Tomogra phy 02/03/2025 2:40 AM EDT Impressions 02/03/2025 3:03 AM EDT Moderate stool in the colon. Otherwise no acute abnormality. Report reviewed and signed by : Dr. Edenilson Roberts on 02/03/2025 3:03 AM. Workstation Name - [id number] -------- FINAL REPORT -------- Dictated By: Edenilson Roberts Dictated Date: 02/03/2025 02:40 ET Assigned Physician: Edenilson Roberts Reviewed and Electronically Signed By: Edenilson Roberts Signed Date: 02/03/2025 03:03 ET Workstation ID: [id number] Transcribed By: Self Edit Transcribed Date: 02/03/2025 02:40 ET Narrative 02/03/2025 3:[address] ABDOMEN PELVIS W CONTRAST HISTORY: 54 years Female Abdominal pain, fever Intermittent crampy abdominal pain constipation COMPARISON: None TECHNIQUE: CT abdomen, and pelvis was performed with intravenous contrast consisting of 100 ml of ISOVUE. Multiplanar reformats were reviewed. Dose reduction techniques were used including automated exposure control and adjustment of mA and/or KV according to patient size. FINDINGS: Streak artifact from overlying leads limits evaluation. Motion limits evaluation. No significant abnormality in the lungs. Fatty liver. No significant abnormality in the adrenals. No significant abnormality in the kidneys. No significant abnormality in the spleen. No significant abnormality in the pancreas. Gallbladder not seen. Moderate stool in colon. No bowel obstruction. No appendicitis. No pneumoperitoneum. No significant lymphadenopathy. No abdominal aortic aneurysm. Partially decompressed bladder. No aggressive osseous lesions. Procedure Note Edenilson Roberts MD - 02/03/2025 CT ABDOMEN PELVIS W CONTRAST HISTORY: 54 years Female Abdominal pain, fever Intermittent crampy abdominal pain constipation COMPARISON: None TECHNIQUE: CT abdomen, and pelvis was performed with intravenous contrastconsisting of 100 ml of ISOVUE. Multiplanar reformats were reviewed. Dosereduction techniques were used including automated exposure control andadjustment of mA and/or KV according to patient size. FINDINGS: Streak artifact from overlying leads limits evaluation. Motionlimits evaluation. No significant abnormality in the lungs. Fatty liver. No significant abnormality in the adrenals. No significant abnormality in the kidneys. No significant abnormality in the spleen. No significant abnormality in the pancreas. Gallbladder not seen. Moderate stool in colon. No bowel obstruction. No appendicitis. No pneumoperitoneum. No significant lymphadenopathy. No abdominal aortic aneurysm. Partially decompressed bladder. No aggressive osseous lesions. IMPRESSION: Moderate stool in the colon. Otherwise no acute abnormality. Report reviewed and signed by : Dr. Edenilson Roberts on 02/03/2025 3:03 AM.Workstation Name - [id number] -------- FINAL REPORT -------- Dictated By: Edenilson Roberts Dictated Date: 02/03/2025 02:40 ET Assigned Physician: Edenilson Roberts Reviewed and Electronically Signed By: Edenilson Roberts Signed Date: 02/03/2025 03:03 ET Workstation ID: [id number] Transcribed By: Self Edit Transcribed Date: 02/03/2025 02:40 ET Joel Hobson MD IMG CT PROCEDURES Final Result * Troponin I high sensitivity (02/03/2025 12:19 AM EDT) Pathologist [facility] High Sensitivity Troponin I <2 0 - 14 ng/L LAB CHEMISTRY METHOD 02/03/2025 1:06 AM EDT [facility] Blood Venous blood specimen / Unknown Venipuncture / Unknown 02/03/2025 12:19 AM EDT 02/03/2025 12:26 AM EDT Narrative [facility] - 02/03/2025 1:06 AM EDT HSTnI results stratify to HIGH RISK category if any value >100 ng/L or delta at 1 hour is greater than or equal to 15 ng/L (male and female). Note: Delta values are not applicable if symptoms began more than 12 hours pre-arrival. Risk stratification should include the calculation of the HEART score. Testing performed using [employer] AccuTnI+3 Assay. us Joel Hobson MD LAB BLOOD ORDERABLES Final Res ult [facility] [address] [place] [address], [place] [phone] * Thyroid stimulating hormone with reflex free T4 (02/03/2025 12:19 AM EDT) [facility] TSH 2.60 0.45 - 5.33 mcIU/mL LAB CHEMISTRY METHOD 02/03/2025 1:08 AM EDT [facility] Blood Venous blood specimen / Unknown Venipuncture / Unknown 02/03/2025 12:19 AM EDT 02/03/2025 12:26 AM EDT Joel Hobson MD LAB BLOOD ORDERABLES Final Res ult [facility] [address] [place] [address], [place] [phone] * RHYTHM ECG, REPORT (02/02/2025 11:57 PM EDT) Joel Cooley MD - 02/02/2025 11:57 PM EDT Joel Hobson MD 02/03/2025 3:38 AM ECG Rhythm Interpretation and Report Date/Time: 02/02/2025 11:57 PM Performed by: Joel Hobson MD Authorized by: Joel Hobson MD ECG interpreted by ED Physician in the absence of a contact lens flashing puncher: yes Interpretation: Details: Sinus rhythm 85 bpm; TX 148 MS; QRS 94 MS; QTc 445 MS; no STEMI; ST depression V4 V5 V6 Q-wave 3 and aVF us Joel Hobson MD ECG ORDERABLES Final Result * ECG 12 lead (02/02/2025 11:13 PM EDT) [facility] Ventricular Rate ECG 85 BPM GEMUSE Atrial Rate 85 BPM GEMUSE P-R Interval 148 ms GEMUSE QRS Duration 94 ms GEMUSE Q-T Interval 374 ms GEMUSE QTc 445 ms GEMUSE P Wave [place] 28 degrees GEMUSE R [place] -6 degrees GEMUSE T [place] 14 degrees GEMUSE ECG Interpretation Sinus rhythm with occasional premature ventricular complexes Possible septal infarct , age undetermined NON SPECIFIC ST AND T WAVE CHANGES Abnormal ECG No previous ECGs available Confirmed by Dante Adams ([id number]) on 02/03/2025 10:14:41 AM GEMUSE 02/02/2025 11:1 3 PM EDT 02/03/2025 10:14 AM EDT us Joel Hobson MD ECG ORDERABLES Final Result GEMUSE * Magnesium (02/02/2025 11:08 PM EDT) Magnesium 1.8 1.7 - 2.8 mg/dL LAB CHEMISTRY METHOD 02/03/2025 2:32 AM EDT [facility] Blood Venous blood specimen / Unknown Venipuncture / Unknown 02/02/2025 11:08 PM EDT 02/02/2025 11:09 PM EDT us Joel Hobson MD LAB BLOOD ORDERABLES Final Res ult Performing Organization Address [facility] Co de Phone Number [facility] [address] [place] [address], [place] [phone] * Lipase (02/02/2025 11:08 PM EDT) Lipase 63 11 - 82 unit/L LAB CHEMISTRY METHOD 02/02/2025 11:36 PM EDT [facility] Blood Venous blood specimen / Unknown Venipuncture / Unknown 02/02/2025 11:08 PM EDT 02/02/2025 11:09 PM EDT us Joel Hobson MD LAB BLOOD ORDERABLES Final Res ult Performing Organization Address City/[facility]/ZIP Co de Phone Number [facility] [address] [place] [address], [place] [phone] * (ABNORMAL) Comprehensive metabolic panel (02/02/2025 11:08 PM EDT) Sodium 134(L) 135 - 145 mmol/L LAB CHEMISTRY METHOD 02/02/2025 11:54 PM [facility] Potassium 3.1(L) 3.5 - 5.1 mmol/L LAB CHEMISTRY METHOD 02/02/2025 11:54 PM [facility] Chloride 98 98 - 107 mmol/L LAB CHEMISTRY METHOD 02/02/2025 11:54 PM [facility] CO2 29 24 - 32 mmol/L LAB CHEMISTRY METHOD 02/02/2025 11:54 PM [facility] Anion Gap 7 5 - 14 LAB CHEMISTRY METHOD 02/02/2025 11:54 PM [facility] Glucose 113 70 - 199 mg/dL LAB CHEMISTRY METHOD 02/02/2025 11:54 PM [facility] BUN 12 7 - 17 mg/dL LAB CHEMISTRY METHOD 02/02/2025 11:54 PM [facility] Creatinine 1.11(H) 0.50 - 1.00 mg/dL LAB CHEMISTRY METHOD 02/02/2025 11:54 PM [facility] eGFR 60 >=60 mL/min/1. 73m2 LAB CHEMISTRY METHOD 02/02/2025 11:54 PM [facility] Comment:Calculation based on the Chronic Kidney Disease Epidemiology Collaboration (CKD-EPI) equation refit without adjustment for race. BUN/Creatinine Ratio 10.8(L) 12.0 - 20.0 LAB CHEMISTRY METHOD 02/02/2025 11:54 PM [facility] Calcium 9.0 8.4 - 10.2 mg/dL LAB CHEMISTRY METHOD 02/02/2025 11:54 PM [facility] AST (SGOT) 15 5 - 40 unit/L LAB CHEMISTRY METHOD 02/02/2025 11:54 PM EDT [facility] ALT (SGPT) 12 7 - 52 unit/L LAB CHEMISTRY METHOD 02/02/2025 11:54 PM EDT [facility] Alkaline Phosphatase 64 34 - 104 unit/L LAB CHEMISTRY METHOD 02/02/2025 11:54 PM EDT [facility] Total Protein 6.9 6.4 - 8.5 g/dL LAB CHEMISTRY METHOD 02/02/2025 11:54 PM EDT [facility] Albumin 4.3 3.5 - 5.0 g/dL LAB CHEMISTRY METHOD 02/02/2025 11:54 PM EDT [facility] Total Bilirubin 0.6 0.3 - 1.0 mg/dL LAB CHEMISTRY METHOD 02/02/2025 11:54 PM EDT [facility] Blood Venous blood specimen / Unknown Venipuncture / Unknown 02/02/2025 11:08 PM EDT 02/02/2025 11:09 PM EDT us Joel Hobson MD LAB BLOOD ORDERABLES Final Res ult [facility] [address] [place] [address], from Last 3 Months Insurance [place]ICAID - [place] Care Teams Modular Set Crew Member Relationship Specialty Start Date End Date Sonya Healy MD [address] [place] [phone] PCP - General Internal Medicine 12/20/18
--- OUTSIDE RECORDS SUMMARY | 2025-04-05 15:47 | XMS_ITS | Clinical Summary ---
Author Organization [facility] Address [address] [place] [address] Care Team Providers Care Director Medicare Sales Name Role Phone Unavailable Primary Care Provider [...] 99 02/01/2023 2:46 PM EDT Temperature 36.6 C (97.9 F) 02/01/2023 2:46 PM EDT Respiratory Rate 18 02/01/2023 2:46 PM EDT [...] 5 season) 2024 07/17/2023 Influenza Vaccine (#1) 2025 Pneumococcal Vaccine Aged Out No long er eligible based on patient's age to complete this topic RSV Ped < 20 months Aged Out No longe r eligible based on patient's age to complete this topic
== END 2025-04-05 15:42 | disposition home or self-care (01) ==
PROVIDERS: PCP Nurse Practitioner Family; Visit Provider Nurse Practitioner Family
DX: K59.04 Chronic idiopathic constipation (principal); K58.9 Irritable bowel syndrome, unspecified; R14.0 Abdominal distension (gaseous)
CPT/HCPCS: 99214

== ENCOUNTER → 2025-04-05 15:03 | Outpatient (BNVA) | payer OTHER, SELFPAY | PROVIDERS: PCP Nurse Practitioner Family; Visit Provider Nurse Practitioner Family | DX: K59.1 Functional diarrhea (principal); K59.04 Chronic idiopathic constipation; K58.9 Irritable bowel syndrome, unspecified | CPT/HCPCS: 99212 ==

== ENCOUNTER 2025-04-21 07:47 | Day surgery (SDC) | payer OTHER, SELFPAY ==
--- OUTSIDE RECORDS SUMMARY | 2025-04-06 15:38 | XMS_ITS | Clinical Summary ---
Author Organization [facility] Address [address] [place] [address] Phone Care Team Providers Care Kitchen Assistant Name Role Phone Sonya Healy MD Primary Care Provider [phone] Allergies Active Allergy Reactions Criticality Noted Date [...] EDT - 03/25/2025 6:15 AM EDT Emergency [facility] Emergency [address] [facility] [place] [address] Trisha Ford MD Kidney stone on left side (Primary Dx); Constipation, unspecified constipation type Discharge Disposition: Home or Self Care 02/02/2025 11:02 PM EDT - 02/03/2025 3:45 AM EDT Emergency [facility] Emergency [address] [facility] [place] [id number] Joel Hobson MD Hypokalemia (Primary Dx); Constipation, [...] on 03/25/2025 5:42 AM. Workstation Name - [id number] -------- FINAL REPORT -------- Dictated By: Pedro Palomino Dictated Date: 03/25/2025 05:33 ET Assigned Physician: Pedro Palomino Reviewed and Electronically Signed By: Pedro Palomino Signed Date: 03/25/2025 05:42 ET Workstation ID: [id number] Transcribed By: Self Edit Transcribed Date: 03/25/2025 [...] Palomino on 03/25/2025 5:42AM. Workstation Name - [id number] -------- FINAL REPORT -------- Dictated By: Pedro Palomino Dictated Date: 03/25/2025 05:33 ET Assigned Physician: Pedro Palomino Reviewed and Electronically Signed By: Pedro Palomino Signed Date: 03/25/2025 05:42 ET Workstation ID: [id number] Transcribed By: Self Edit Transcribed Date: 03/25/2025 05:33 ET us Trisha Ford MD IMG CT PROCEDURES Final Resu lt * (ABNORMAL) CBC auto differential (03/25/2025 5:12 AM EDT) Only the most recent of2 resultswithin the time period is included. WBC 11.4(H) 4.0 - 10.5 K/mcL LAB HEMETOLOGY METHOD 03/25/2025 5:30 AM [facility] RBC 4.35 4.20 - 5.40 M/mcL LAB HEMETOLOGY METHOD 03/25/2025 5:30 AM [facility] Hemoglobin 12.6 12.5 - 16.0 g/dL LAB HEMETOLOGY METHOD 03/25/2025 5:30 AM [facility] Hematocrit 38.0 37.0 - 47.0 % LAB HEMETOLOGY METHOD 03/25/2025 5:30 AM [facility] MCV 87.4 78.0 - 100.0 FL LAB HEMETOLOGY METHOD 03/25/2025 5:30 AM [facility] MCH 29.0 25.0 - 33.0 pcg LAB HEMETOLOGY METHOD 03/25/2025 5:30 AM [facility] MCHC 33.2 32.0 - 36.0 g/dL LAB HEMETOLOGY METHOD 03/25/2025 5:30 AM [facility] RDW 13.3 12.1 - 16.2 % LAB HEMETOLOGY METHOD 03/25/2025 5:30 AM [facility] Platelets 309 150 - 450 K/mcL LAB HEMETOLOGY METHOD 03/25/2025 5:30 AM [facility] MPV 9.2 7.4 - 11.4 FL LAB HEMETOLOGY METHOD 03/25/2025 5:30 AM [facility] Neutrophils Relative 65.0 44.0 - 74.0 % LAB HEMETOLOGY METHOD 03/25/2025 5:30 AM [facility] Lymphocytes Relative 25.1 20.0 - 48.0 % LAB HEMETOLOGY METHOD 03/25/2025 5:30 AM [facility] Monocytes Relative 6.6 2.0 - 12.0 % LAB HEMETOLOGY METHOD 03/25/2025 5:30 AM [facility] Eosinophils Relative 2.6 0.0 - 6.0 % LAB HEMETOLOGY METHOD 03/25/2025 5:30 AM [facility] Basophils Relative 0.4 0.0 - 2.0 % LAB HEMETOLOGY METHOD 03/25/2025 5:30 AM [facility] Neutrophils Absolute 7.42 1.80 - 7.80 K/mcL LAB HEMETOLOGY METHOD 03/25/2025 5:30 AM [facility] Lymphocytes Absolute 2.87 1.00 - 3.20 K/mcL LAB HEMETOLOGY METHOD 03/25/2025 5:30 AM EDT [facility] Monocytes Absolute 0.75 0.00 - 0.80 K/mcL LAB HEMETOLOGY METHOD 03/25/2025 5:30 AM EDT [facility] Eosinophils Absolute 0.30 0.00 - 0.50 K/mcL LAB HEMETOLOGY METHOD 03/25/2025 5:30 AM EDT [facility] Basophils Absolute 0.05 0.00 - 0.20 K/mcL LAB HEMETOLOGY METHOD 03/25/2025 5:30 AM EDT [facility] Blood Venous blood specimen / Unknown Venipuncture / Unknown 03/25/2025 5:12 AM EDT 03/25/2025 5:18 AM EDT us Lis Ileana Ford MD LAB BLOOD ORDERABLES Final R esult [facility] [address] [place] [address], [place] [phone] * Basic metabolic panel (03/25/2025 5:12 AM EDT) Sodium 138 135 - 145 mmol/L LAB CHEMISTRY METHOD 03/25/2025 5:40 AM [facility] Potassium 3.6 3.5 - 5.1 mmol/L LAB CHEMISTRY METHOD 03/25/2025 5:40 AM [facility] Chloride 102 98 - 107 mmol/L LAB CHEMISTRY METHOD 03/25/2025 5:40 AM [facility] CO2 29 24 - 32 mmol/L LAB CHEMISTRY METHOD 03/25/2025 5:40 AM [facility] Anion Gap 7 5 - 14 LAB CHEMISTRY METHOD 03/25/2025 5:40 AM [facility] Glucose 113 70 - 199 mg/dL LAB CHEMISTRY METHOD 03/25/2025 5:40 AM EDT [facility] BUN 15 7 - 17 mg/dL LAB CHEMISTRY METHOD 03/25/2025 5:40 AM EDT [facility] Creatinine 0.98 0.50 - 1.00 mg/dL LAB CHEMISTRY METHOD 03/25/2025 5:40 AM EDT [facility] eGFR 69 >=60 mL/min/1. 73m2 LAB CHEMISTRY METHOD 03/25/2025 5:40 AM EDT [facility] Comment:Calculation based on the Chronic Kidney Disease Epidemiology Collaboration (CKD-EPI) equation refit without adjustment for race. BUN/Creatinine Ratio 15.3 12.0 - 20.0 LAB CHEMISTRY METHOD 03/25/2025 5:40 AM EDT [facility] Calcium 8.8 8.4 - 10.2 mg/dL LAB CHEMISTRY METHOD 03/25/2025 5:40 AM EDT [facility] Blood Venous blood specimen / Unknown Venipuncture / Unknown 03/25/2025 5:12 AM EDT 03/25/2025 5:18 AM EDT us Lis Ileana Ford MD LAB BLOOD ORDERABLES Final R esult [facility] [address] [place] [address], [place] [phone] * (ABNORMAL) Urinalysis with reflex microscopic and culture (03/25/2025 4:29 AM EDT) Color, Urine Yellow Colorless, Yellow LAB URINALYSIS - AUTOMATED METHOD 03/25/2025 4:38 AM EDT [facility] Clarity, Urine Clear Clear LAB URINALYSIS - AUTOMATED METHOD 03/25/2025 4:38 AM [facility] Specific [place] Urine 1.025 1.005 - 1.030 LAB URINALYSIS - AUTOMATED METHOD 03/25/2025 4:38 AM [facility] pH, Urine 6.0 5.0 - 8.0 pH LAB URINALYSIS - AUTOMATED METHOD 03/25/2025 4:38 AM [facility] Leukocytes, Urine Negative Negative WBCs/mcL LAB URINALYSIS - AUTOMATED METHOD 03/25/2025 4:38 AM [facility] Nitrite, Urine Negative Negative LAB URINALYSIS - AUTOMATED METHOD 03/25/2025 4:38 AM [facility] Protein, Urine Negative Negative mg/dL LAB URINALYSIS - AUTOMATED METHOD 03/25/2025 4:38 AM [facility] Glucose, Urine Negative Negative mg/dL LAB URINALYSIS - AUTOMATED METHOD 03/25/2025 4:38 AM [facility] Ketones, Urine Trace(A) Negative mg/dL LAB URINALYSIS - AUTOMATED METHOD 03/25/2025 4:38 AM [facility] Blood, Urine Negative Negative mg/dL LAB URINALYSIS - AUTOMATED METHOD 03/25/2025 4:38 AM [facility] Urine Urine specimen obtained by clean catch procedure / Unknown Non-blood Collection / Unknown 03/25/2025 4:29 AM EDT 03/25/2025 4:35 AM EDT us Lis Ileana Ford MD LAB URINE ORDERABLES Final R esult [facility] [address] [place] [address], [place] [phone] * CT Abdomen Pelvis w Contrast (02/03/2025 2:24 AM EDT) Anatomical Region Laterality Modality Body Computed Tomogra phy 02/03/2025 2:40 AM EDT Impressions 02/03/2025 3:03 AM EDT Moderate stool in the colon. Otherwise no acute abnormality. Report reviewed and signed by : Dr. Edenilson Roberts on 02/03/2025 3:03 AM. Workstation Name - [id number] -------- FINAL REPORT -------- Dictated By: Edenilson Roberts Dictated Date: 02/03/2025 02:40 ET Assigned Physician: Edenilson Roberts Reviewed and Electronically Signed By: Edenilson Roberts Signed Date: 02/03/2025 03:03 ET Workstation ID: [id number] Transcribed By: Self Edit Transcribed Date: 02/03/2025 [...] Roberts on 02/03/2025 3:03 AM.Workstation Name - [id number] -------- FINAL REPORT -------- Dictated By: Edenilson Roberts Dictated Date: 02/03/2025 02:40 ET Assigned Physician: Edenilson Roberts Reviewed and Electronically Signed By: Edenilson Roberts Signed Date: 02/03/2025 03:03 ET Workstation ID: [id number] Transcribed By: Self Edit Transcribed Date: 02/03/2025 02:40 ET Joel Hobson MD IMG CT PROCEDURES Final Result * Troponin I high sensitivity (02/03/2025 12:19 AM EDT) Pathologist [facility] High Sensitivity Troponin I <2 0 - 14 ng/L LAB CHEMISTRY METHOD 02/03/2025 1:06 AM EDT [facility] Blood Venous blood specimen / Unknown Venipuncture / Unknown 02/03/2025 12:19 AM EDT 02/03/2025 12:26 AM EDT Narrative [facility] - 02/03/2025 1:06 AM EDT HSTnI results stratify to HIGH RISK category if any value >100 ng/L or delta at 1 hour is greater than or equal to 15 ng/L (male and female). Note: Delta values are not applicable if symptoms began more than 12 hours pre-arrival. Risk stratification should include the calculation of the HEART score. Testing performed using [employer] Access AccuTnI+3 Assay. us Joel Hobson MD LAB BLOOD ORDERABLES Final Res ult [facility] [address] [place] [address], [place] [phone] * Thyroid stimulating hormone with reflex free T4 (02/03/2025 12:19 AM EDT) [facility] TSH 2.60 0.45 - 5.33 mcIU/mL LAB CHEMISTRY METHOD 02/03/2025 1:08 AM EDT [facility] Blood Venous blood specimen / Unknown Venipuncture / Unknown 02/03/2025 12:19 AM EDT 02/03/2025 12:26 AM EDT Joel Hobson MD LAB BLOOD ORDERABLES Final Res ult [facility] [address] [place] [address], [place] [phone] * RHYTHM ECG, REPORT (02/02/2025 11:57 PM EDT) Joel Cooley MD - 02/02/2025 11:57 PM EDT Joel Hobson MD 02/03/2025 3:38 AM ECG Rhythm Interpretation and Report Date/Time: 02/02/2025 11:57 PM Performed by: Joel Hobson MD Authorized by: Joel Hobson MD ECG interpreted by ED Physician in the absence of a television script writer: yes Interpretation: Details: Sinus rhythm 85 bpm; HI 148 MS; QRS 94 MS; QTc 445 MS; no STEMI; ST depression V4 V5 V6 Q-wave 3 and aVF us Joel Hobson MD ECG ORDERABLES Final Result * ECG 12 lead (02/02/2025 11:13 PM EDT) [facility] Ventricular Rate ECG 85 BPM GEMUSE Atrial Rate 85 BPM GEMUSE P-R Interval 148 ms GEMUSE QRS Duration 94 ms GEMUSE Q-T Interval 374 ms GEMUSE QTc 445 ms GEMUSE P Wave [place] 28 degrees GEMUSE R [place] -6 degrees GEMUSE T [place] 14 degrees GEMUSE ECG Interpretation Sinus rhythm [...] LAB CHEMISTRY METHOD 02/03/2025 2:32 AM EDT [facility] Blood Venous blood specimen / Unknown Venipuncture / Unknown 02/02/2025 11:08 PM EDT 02/02/2025 11:09 PM EDT us Joel Hobson MD LAB BLOOD ORDERABLES Final Res ult Performing Organization Address [facility] Co de Phone Number [facility] [address] [place] [address], [place] [phone] * Lipase (02/02/2025 11:08 PM EDT) Lipase 63 11 - 82 unit/L LAB CHEMISTRY METHOD 02/02/2025 11:36 PM EDT [facility] Blood Venous blood specimen / Unknown Venipuncture / Unknown 02/02/2025 11:08 PM EDT 02/02/2025 11:09 PM EDT us Joel Hobson MD LAB BLOOD ORDERABLES Final Res ult Performing Organization Address City/[facility]/ZIP Co de Phone Number [facility] [address] [place] [address], [place] [phone] * (ABNORMAL) Comprehensive metabolic panel (02/02/2025 11:08 PM EDT) Sodium 134(L) 135 - 145 mmol/L LAB CHEMISTRY METHOD 02/02/2025 11:54 PM [facility] Potassium 3.1(L) 3.5 - 5.1 mmol/L LAB CHEMISTRY METHOD 02/02/2025 11:54 PM [facility] Chloride 98 98 - 107 mmol/L LAB CHEMISTRY METHOD 02/02/2025 11:54 PM [facility] CO2 29 24 - 32 mmol/L LAB CHEMISTRY METHOD 02/02/2025 11:54 PM [facility] Anion Gap 7 5 - 14 LAB CHEMISTRY METHOD 02/02/2025 11:54 PM [facility] Glucose 113 70 - 199 mg/dL LAB CHEMISTRY METHOD 02/02/2025 11:54 PM [facility] BUN 12 7 - 17 mg/dL LAB CHEMISTRY METHOD 02/02/2025 11:54 PM [facility] Creatinine 1.11(H) 0.50 - 1.00 mg/dL LAB CHEMISTRY METHOD 02/02/2025 11:54 PM [facility] eGFR 60 >=60 mL/min/1. 73m2 LAB CHEMISTRY METHOD 02/02/2025 11:54 PM [facility] Comment:Calculation based on the Chronic Kidney Disease Epidemiology Collaboration (CKD-EPI) equation refit without adjustment for race. BUN/Creatinine Ratio 10.8(L) 12.0 - 20.0 LAB CHEMISTRY METHOD 02/02/2025 11:54 PM [facility] Calcium 9.0 8.4 - 10.2 mg/dL LAB CHEMISTRY METHOD 02/02/2025 11:54 PM [facility] AST (SGOT) 15 5 - 40 unit/L LAB CHEMISTRY METHOD 02/02/2025 11:54 PM EDT [facility] ALT (SGPT) 12 7 - 52 unit/L LAB CHEMISTRY METHOD 02/02/2025 11:54 PM EDT [facility] Alkaline Phosphatase 64 34 - 104 unit/L LAB CHEMISTRY METHOD 02/02/2025 11:54 PM EDT [facility] Total Protein 6.9 6.4 - 8.5 g/dL LAB CHEMISTRY METHOD 02/02/2025 11:54 PM EDT [facility] Albumin 4.3 3.5 - 5.0 g/dL LAB CHEMISTRY METHOD 02/02/2025 11:54 PM EDT [facility] Total Bilirubin 0.6 0.3 - 1.0 mg/dL LAB CHEMISTRY METHOD 02/02/2025 11:54 PM EDT [facility] Blood Venous blood specimen / Unknown Venipuncture / Unknown 02/02/2025 11:08 PM EDT 02/02/2025 11:09 PM EDT us Joel Hobson MD LAB BLOOD ORDERABLES Final Res ult [facility] [address] [place] [address], from Last 3 Months Insurance [place]ICAID - [place] Care Teams Kitchen Assistant Relationship Specialty Start Date End Date Sonya Healy MD [address] [place] [id number] PCP - General Internal Medicine 12/20/18
--- OUTSIDE RECORDS SUMMARY | 2025-04-06 15:38 | XMS_ITS | Clinical Summary ---
Author Organization [facility] Address [address] [place] [address] Care Team Providers Care Neon Technician Name Role Phone Unavailable Primary Care Provider [...]
[2025-04-19 10:29] VITALS: BMI 24.0
--- NOTE | 2025-04-20 08:46 | HO.ANESPROP2 ---
Documented by User: Rocío Pacheco NP 04/20/25 08:49 HPI - Anesthesia Eval Consult details Narrative: 55yo F for Upper Endoscopy and Colonoscopy Anesthesia Pre-Procedure Meds Is the patient on any of the following meds?: GLP1/DPP4 PMFSH Active Problems Active Problems: All Active Problems Constipation (Acute) Need for hepatitis C screening test (Acute) Leukocytosis (Acute) Vitamin D deficiency (Acute) Asthma (Acute) Obesity (Acute) Elevated fasting blood sugar (Acute) ADD (attention deficit disorder) (Acute) Status post left foot surgery (Acute) Palpitations (Acute) Physical exam (Acute) Screening for colon cancer (Acute) Dizziness (Acute) Fatigue (Acute) Degenerative disc disease, cervical (Acute) Upper respiratory tract infection (Acute) Diarrhea (Acute) Dyslipidemia (Acute) Hypokalemia (Acute) Numbness of right hand (Acute) Cervical neck pain with evidence of disc disease (Acute) Nausea and vomiting (Acute) HTN (hypertension) (Acute) Esophageal stricture (Acute) Past Medical History Medical History Dyslipidemia Asthma HTN (hypertension) GI bleed Elevated fasting blood sugar Impingement syndrome of right shoulder 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 Daughter No problems noted. Surgical History Surgical History Hx of sigmoidoscopy (~2022) History of breast surgery S/P bilateral breast reduction History of section H/O laparoscopy History of partial hysterectomy Social History 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 Current occupational exposures/hazards: Yes Cognitive needs: No Hearing needs: No Vision needs: No Meds Allergies Allergy/AdvReac Type Severity Reaction Status Date / Time lisinopril Allergy Unknown Cough Verified 04/05/25 15:05 dust mites, ragweed Allergy Unknown Unknown Uncoded 04/05/25 15:05 Home Medications ?Medication ?Instructions ?Recorded ?Confirmed ?Last Taken ?Type nortriptyline 50 mg capsule 50 mg PO BID 07/26/20 02/09/25 Unknown History tirzepatide 10 mg/0.5 mL 10 mg subcut QWEEK 11/18/24 02/09/25 04/13/25 08:00 History subcutaneous pen injector (Mounjaro) dextroamphetamine-amphetamine ER cap PO 04/05/25 Unknown History 25 mg 24hr capsule,extend release (Adderall XR) ondansetron 4 mg disintegrating mg PO 04/05/25 Unknown History tablet polyethylene glycol 3350 17 g PO 04/05/25 Unknown History gram/dose oral powder (Purelax) Exam Height,Weight and Vital Signs: Height 5 ft 2 in Weight 59.421 kg Assessment and Plan Assessment Anesthesia Assessment: Chart Reviewed Documented by User: Robin Mehta MD 04/21/25 12:05 HPI - Anesthesia Eval Anesthesia Pre-Procedure Meds If yes to any meds - educate patient: Pt education - increased risk of aspiration and/or euvolemic DKA [facility] Past Medical History Medical History Dyslipidemia Asthma HTN (hypertension) GI bleed Elevated fasting blood sugar Impingement syndrome of right shoulder 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 Daughter No problems noted. Family history of problems with anesthesia: No Surgical History Surgical History Hx of sigmoidoscopy (~2022) History of breast surgery S/P bilateral breast reduction History of section H/O laparoscopy History of partial hysterectomy History of Problems with Anesthesia: No Social History 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 Current occupational exposures/hazards: Yes Cognitive needs: No Hearing needs: No Vision needs: No Meds Allergies Allergy/AdvReac Type Severity Reaction Status Date / Time lisinopril Allergy Unknown Cough Verified 04/05/25 15:05 dust mites, ragweed Allergy Unknown Unknown Uncoded 04/05/25 15:05 Home Medications ?Medication ?Instructions ?Recorded ?Confirmed ?Last Taken ?Type nortriptyline 50 mg capsule 50 mg PO BID 07/26/20 02/09/25 Unknown History tirzepatide 10 mg/0.5 mL 10 mg subcut QWEEK 11/18/24 02/09/25 04/13/25 08:00 History subcutaneous pen injector (Mounjaro) dextroamphetamine-amphetamine ER cap PO 04/05/25 Unknown History 25 mg 24hr capsule,extend release (Adderall XR) ondansetron 4 mg disintegrating mg PO 04/05/25 Unknown History tablet polyethylene glycol 3350 17 g PO 04/05/25 Unknown History gram/dose oral powder (Purelax) Exam Exam Date and Time: 04/21/2025 Airway Mallampati Class: II TM Dist: >3cm Denture: Upper and Lower Loose/Missing/Broken Teeth: No Heart: rrr Lungs: cta both sides Assessment and Plan Assessment Anesthesia Assessment: Anesthesia Plan Discussed Final Anesthetic Review Family History of Problems with Anesthesia: No History of Problems with Anesthesia: No NPO: Yes ASA Class: II Final Preanesthetic Review: No Changes in Pt Med Stat, Meds/Allgs Chart Reviewed, Consent Obtained/Reviewed and Anes Risks/Benef Reviewed Patient Risk: Low Procedure Risk: Low Anesthetic Plan Anesthetic Plan: MAC: Disposition: Standard PACU
[2025-04-21 10:06] VITALS: BMI 24.4
[2025-04-21 10:21] VITALS: BP 143/94; PULSE 76; RESP 16; TEMP 36.7; O2SAT 98
[2025-04-21] MEDS: Lactated Ringers 1,000 ML 100 ML IVCONT (10:23)
--- NOTE | 2025-04-21 10:56 | MHC.SHP ---
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 Surgical History (Reviewed 04/05/25 @ 15:10 by Wade Clinton [facility]) Hx of sigmoidoscopy (~2022) History of breast surgery S/P bilateral breast reduction History of section H/O laparoscopy History of partial hysterectomy Allergies: Allergies Allergy/AdvReac Type Severity Reaction Status Date / Time lisinopril Allergy Unknown Cough Verified 04/05/25 15:05 dust mites, ragweed Allergy Unknown Unknown Uncoded 04/05/25 15:05 Review of Systems Review of Systems Comment: Ten point ROS negative Exam Exam Comment: Gen appear: No acute distress HEENT: no icterus Chest: No overt resp distress Abd: soft, nontender, nondistended Psych: Stable affect, answering questions appropriately Neuro: A/Ox3 noted to move all extremities spontaneously Ext: no peripheral edema Plan Diagnosis/Plan: Unchanged I have reviewed the history and physical and performed a pertinent physical examination on my patient. No changes have occurred unless specified. Time Spent With Patient Time: Total time managing care of this patient today ____ minutes.
[2025-04-21 12:10] VITALS: BP 88/53; PULSE 80; RESP 14; TEMP 36.1; O2SAT 96
--- NOTE | 2025-04-21 12:12 | P.OPN-COLO_ITS ---
Colonoscopy Operative Note Operative Note Date of Service: 04/21/25 Narrative: Procedure: Upper endoscopy and colonoscopy Indication: dysphagia, change in bowel habits Endoscopist: Agustina Pringle MD Anesthesia Provider: Dr Mehta Anesthesia type: MAC Instrument: [id number] and [id number] EGD Procedure:?? The procedure, indications, preparation and potential complications were reviewed with the patient, who indicated understanding and gave written informed consent to proceed. The endoscope was introduced through the mouth, and advanced to the 2nd part of the duodenum. The mucosa was carefully examined on slow withdrawal of the endoscope. The patient tolerated the procedure well. There were no immediate complications.? EGD Findings:? * Esophagus:? Whitish mucosa slouging off in sheets noted throughout the esophagus suspicious for EDS. The Z-line was at 35 cm. Cold forceps biopsies were taken of the middle and lower esophagus for histology. * Stomach:? Erythema and erosions in the body and antrum. Three small 3-4 mm healing ulcers in the body of the stomach. Retroflexion was performed in the cardia. Cold forceps biopsies were taken from the antrum and body of the stomach. * Duodenum:? Normal duodenal mucosa. Additional intervention: Soft tip Savary wire was introduced through the biopsy channel of the gastroscope and advanced to the antrum. ?The gastroscope was then backed out. ?Savary Mariza bougie was advanced over the guidewire and the esophagus was dilated to 15 without resistance felt. ?On relook, no heme or tear was noted. ? Colonoscopy Procedure:? The patient was then turned for the colonoscopy. A digital rectal exam was performed which was normal.? A distal attachment cap was affixed to the tip of the scope and the colonoscope was then inserted through the anus and advanced through the colon and advanced to the descending colon.? Mucosa could not be seen due to poor prep. Retroflexion was not performed. The quality of the prep was BBPS: N/A+0+1 = inadequate Withdrawal time N/A Limitations: Poor prep Findings: Mucosa: Copious semi-solid and liquid opaque stool was seen throughout the colon, which could not be adequately flushed for visualization. The procedure was therefore aborted. Impression: 1. Abnormal esophageal mucosa r/o EDS (biopsy, dilation) 2. Gastritis (biopsy) 3. Healing gastric ulcers 4. Duodenitis 5. Poor prep colonoscopy Recommendations:?? * Follow-up path results * Avoid NSAIDs * H Pylori treatment if biopsies + * Repeat colonoscopy will be scheduled within 6-12 months due to poor prep. Consider CLD x 2 days and giving mag citrate in addition to usual PEG or miralax prep.
[2025-04-21 12:25] VITALS: BP 101/62; PULSE 79; RESP 16; TEMP 36.1; O2SAT 99
== END 2025-04-21 13:00 | disposition home or self-care (01) ==
PROVIDERS: PCP Nurse Practitioner Family; Visit Provider Internal Medicine
PROC: (CPT 45378; principal; 2025-04-21 11:40)
DX: R19.4 Change in bowel habit (principal); Z91.199 Patient's noncompliance with other medical treatment and regimen due to unspecified reason; K21.9 Gastro-esophageal reflux disease without esophagitis; K29.60 Other gastritis without bleeding; K29.80 Duodenitis without bleeding; K22.10 Ulcer of esophagus without bleeding; K20.80 Other esophagitis without bleeding; Z79.899 Other long term (current) drug therapy
CPT/HCPCS: 45378; 43248; 43239; 88305; 88312; 88313; 88342; C1769; J2003; J2704; J3010

== ENCOUNTER → 2025-04-21 07:47 | Outpatient (BNV) | payer OTHER, SELFPAY | PROVIDERS: PCP Nurse Practitioner Family; Visit Provider Internal Medicine | DX: R13.10 Dysphagia, unspecified (principal); K22.89 Other specified disease of esophagus; K29.70 Gastritis, unspecified, without bleeding; K29.80 Duodenitis without bleeding; R19.4 Change in bowel habit; Z91.199 Patient's noncompliance with other medical treatment and regimen due to unspecified reason | CPT/HCPCS: 43239; 43248; 45330 ==

== ENCOUNTER 2025-05-10 06:43 | Outpatient (AMB) | payer OTHER, SELFPAY ==
--- OUTSIDE RECORDS SUMMARY | 2025-05-10 06:46 | XMS_ITS | Clinical Summary ---
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 Active LORazepam (Ativan) 1 mg tablet Take 1 tablet (1 mg total) by mouth at bedtime for 7 days. Max Daily Amount: 1 mg 7 tablet 02/03/2025 Active polyethylene glycol (MIRALAX) 17 gram packet Take MiraLAX 3 times a day for 2 days 51 g 03/25/2025 Active Active Problems No known active problems Encounters Date Type Department Care Team Description 03/25/2025 4:44 AM EDT - 03/25/2025 6:15 AM EDT Emergency [facility] Emergency [address] [place] [address] Trisha Ford MD Kidney stone on left side (Primary Dx); Constipation, unspecified constipation type Discharge Disposition: Home or Self Care from [...] AND CULTURE STAT 03/25/2025 4:29 AM EDT from Last 3 Months Results * [...] on 03/25/2025 5:42 AM. Workstation Name - [id number] -------- FINAL REPORT -------- Dictated By: Pedro Palomino Dictated Date: 03/25/2025 05:33 ET Assigned Physician: Pedro Palomino Reviewed and Electronically Signed By: Pedro Palomino Signed Date: 03/25/2025 05:42 ET Workstation ID: [id number] Transcribed By: Self Edit Transcribed Date: 03/25/2025 [...] Palomino on 03/25/2025 5:42AM. Workstation Name - [id number] -------- FINAL REPORT -------- Dictated By: Pedro Palomino Dictated Date: 03/25/2025 05:33 ET Assigned Physician: Pedro Palomino Reviewed and Electronically Signed By: Pedro Palomino Signed Date: 03/25/2025 05:42 ET Workstation ID: [id number] Transcribed By: Self Edit Transcribed Date: 03/25/2025 05:33 ET us Trisha Ford MD IMG CT PROCEDURES Final Resu lt * (ABNORMAL) CBC auto differential (03/25/2025 5:12 AM EDT) WBC 11.4(H) 4.0 - 10.5 K/mcL LAB HEMETOLOGY METHOD 03/25/2025 5:30 AM EDT [facility] RBC 4.35 4.20 - 5.40 M/mcL LAB H[facility] Hemoglobin 12.6 12.5 - 16.0 g/dL LAB HEMETOLOGY METHOD 03/25/2025 5:30 AM EDT [facility] Hematocrit 38.0 37.0 - 47.0 % LAB HEMETOLOGY METHOD 03/25/2025 5:30 AM EDT [facility] MCV 87.4 78.0 - 100.0 FL LAB HEMETOLOGY METHOD [facility]2025 [facility] MCH 29.0 25.0 - 33.0 pcg LAB HEMETOLOGY METHOD 03/25/2025 5:30 AM [facility] MCHC 33.2 32.0 - 36.0 g/dL LAB HEMETOLOGY METHOD 03/25/2025 5:30 AM [facility] RDW 13.3 12.1 - 16.2 % LAB HEMETOLOGY METHOD 03/25/2025 5:30 AM [facility] Platelets 309 150 - 450 K/mcL LAB HEMETOLOGY METHOD [facility]/25[facility]2025 [facility] MPV 9.2 7.4 - 11.4 FL LAB HEMETOLOGY METHOD 03/25/2025 5:30 AM [facility] Neutrophils Relative 65.0 44.0 - 74.0 % LAB HEMETOLOGY METHOD 03/25/2025 5:30 AM [facility] Lymphocytes Relative 25.1 20.0 - 48.0 % LAB HEMETOLOGY METHOD 03/25/2025 5:30 AM [facility] Monocytes Relative 6.6 2.0 - 12.0 % LAB HEMETOLOGY METHOD 03/25/2025 5:30 AM [facility] Eosinophils Relative 2.6 0.0 - 6.0 % LAB HEMETOLOGY METHOD 03/25/2025 5:30 AM [facility] Basophils Relative 0.4 0.0 - 2.0 % LAB HEMETOLOGY METHOD 03/25/2025 5:30 AM [facility] Neutrophils Absolute 7.42 1.80 - 7.80 K/mcL LAB HEMETOLOGY METHOD 03/25/2025 5:30 AM [facility] Lymphocytes Absolute 2.87 1.00 - 3.20 K/mcL LAB HEMETOLOGY METHOD 03/25/2025 5:30 AM [facility] Monocytes Absolute 0.75 0.00 - 0.80 K/mcL LAB HEMETOLOGY METHOD 03/25/2025 5:30 AM EDT [facility] Eosinophils Absolute 0.30 0.00 - 0.50 K/mcL LAB HEMETOLOGY METHOD 03/25/2025 5:30 AM EDT [facility] Basophils Absolute 0.05 0.00 - 0.20 K/mcL LAB HEMETOLOGY METHOD 03/25/2025 5:30 AM EDT [facility] Blood Venous blood specimen / Unknown Venipuncture / Unknown 03/25/2025 5:12 AM EDT 03/25/2025 5:18 AM EDT us Lis Ileana Ford MD LAB BLOOD ORDERABLES Final R esult [facility] [address] [place] [address], [place] [phone] * Basic metabolic panel (03/25/2025 5:12 AM EDT) Sodium 138 135 - 145 mmol/L LAB CHEMISTRY METHOD 03/25/2025 5:40 AM [facility] Potassium 3.6 3.5 - 5.1 mmol/L LAB CHEMISTRY METHOD 03/25/2025 5:40 AM [facility] Chloride 102 98 - 107 mmol/L LAB CHEMISTRY METHOD 03/25/2025 5:40 AM [facility] CO2 29 24 - 32 mmol/L LAB CHEMISTRY METHOD 03/25/2025 5:40 AM [facility] Anion Gap 7 5 - 14 LAB CHEMISTRY METHOD 03/25/2025 5:40 AM [facility] Glucose 113 70 - 199 mg/dL LAB CHEMISTRY METHOD 03/25[facility]2025 5:[facility] BUN 15 7 - 17 mg/dL LAB CHEMISTRY METHOD 03/25/2025 5:40 [facility] Creatinine 0.98 0.50 - 1.00 mg/dL LAB CHEMISTRY METHOD 03/25/2025 5:[facility] eGFR 69 >=60 mL/min/1. 73m2 LAB CHEMISTRY METHOD 03/25/2025 5:40 AM EDT [facility] Comment:Calculation based on the Chronic Kidney Disease Epidemiology Collaboration (CKD-EPI) equation refit without adjustment for race. BUN/Creatinine Ratio 15.3 12.0 - 20.0 LAB CHEMISTRY METHOD 03/25/2025 5:40 [facility] Calcium 8.8 8.4 - 10.2 mg/dL LAB CHEMISTRY METHOD 03/25/2025 5:40 AM [facility] Blood Venous blood specimen / Unknown Venipuncture / Unknown 03/25/2025 5:12 AM EDT 03/25/2025 5:18 AM EDT us Lis Ileana Ford MD LAB BLOOD ORDERABLES Final R esult [facility] [address] [place] [address], [place] [phone] * (ABNORMAL) Urinalysis with reflex microscopic and culture (03/25/2025 4:29 AM EDT) Color, Urine Yellow Colorless, Yellow LAB URINALYSIS - AUTOMATED METHOD 03/25/2025 4:38 AM [facility] Clarity, Urine Clear Clear LAB URINALYSIS - AUTOMATED METHOD 03/25/2025 4:38 [facility] Specific [place] Urine 1.025 1.005 - 1.030 LAB URINALYSIS - AUTOMATED METHOD 03/25/2025 4:38 [facility] pH, Urine 6.0 5.0 - 8.0 pH LAB URINALYSIS - AUTOMATED METHOD 03/25/2025 4:38 AM [facility] Leukocytes, Urine Negative Negative WBCs/mcL LAB URINALYSIS - AUTOMATED METHOD 03/25/2025 4:38 [facility] Nitrite, Urine Negative Negative LAB URINALYSIS - AUTOMATED METHOD 03/25/2025 4:38 [facility] Protein, Urine Negative Negative mg/dL LAB URINALYSIS - AUTOMATED METHOD 03/25/2025 4:38 AM [facility] Glucose, Urine Negative Negative mg/dL LAB URINALYSIS - AUTOMATED METHOD 03/25/2025 4:38 AM [facility] Ketones, Urine Trace(A) Negative mg/dL LAB URINALYSIS - AUTOMATED METHOD 03/25/2025 4:38 AM [facility] Blood, Urine Negative Negative mg/dL LAB URINALYSIS - AUTOMATED METHOD 03/25/2025 4:38 AM [facility] Urine Urine specimen obtained by clean catch procedure / Unknown Non-blood Collection / Unknown 03/25/2025 4:29 AM EDT 03/25/2025 4:35 AM EDT us Trisha Ford MD LAB URINE ORDERABLES Final R esult [facility] [address] [place] [address], [place] [phone] from Last 3 Months Insurance MEDICAID [facility] Care Teams Brick Chimney Builder Relationship Specialty Start Date End Date Sonya Healy MD [address] [place] [address] PCP - General Internal Medicine 12/20/18
--- OUTSIDE RECORDS SUMMARY | 2025-05-10 06:46 | XMS_ITS | Clinical Summary ---
Author Organization [facility] Address [address] [place] [address] Care Team Providers Care Envelope Patternmaker Name Role Phone Unavailable Primary Care Provider [...] of 2) 02/28/2022 COVID-19 Vaccine (2 - 2024-2 6 season) 2025 07/17/2023 Influenza Vaccine (#1) 2025 Pneumococcal Vaccine Aged Out No long er eligible based on patient's age to complete this topic RSV Ped < 20 months Aged Out No longe r eligible based on patient's age to complete this topic
--- NOTE | 2025-05-10 07:47 | MHC.PC.OV ---
Intake Visit Reasons: Referral request Allergies lisinopril Allergy (Unknown, Verified 05/10/25 07:50) Cough dust mites, ragweed Allergy (Unknown, Uncoded 05/10/25 07:50) Unknown Medication List - Last Reconciled 05/10/25 by Shadi Palencia, [facility] albuterol sulfate 2.5 mg (3 mL) inhalation QID PRN bisacodyl (Dulcolax (bisacodyl)) 10 mg (2 x 5 mg) PO BEDTIME blood pressure test kit-medium As directed budesonide-formoterol 160-4.5 mcg/actuation (Symbicort) 2 puffs inhalation Q12H cholecalciferol (vitamin D3) 50 mcg PO DAILY dextroamphetamine-amphetamine 25 mg ER (Adderall XR) caps PO esomeprazole magnesium 40 mg PO DAILY famotidine 40 mg PO BEDTIME fluticasone propionate 50 mcg/actuation 2 sprays intranasal DAILY furosemide 20 mg PO QAM hydrocortisone 2.5% (Proctosol HC) 1 appl HI BID-QID PRN levocetirizine 5 mg PO BEDTIME linaclotide (Linzess) 290 mcg PO QAM lorazepam 0.5 mg PO BID PRN 14 days losartan 25 mg PO DAILY lubiprostone (Amitiza) 24 mcg PO BID 90 days magnesium citrate 296 mL PO ONCE menthol-zinc oxide 0.44-20.6 % (Calmoseptine) 1 appl topical QID PRN nebulizers Nebulizer with supplies nortriptyline 50 mg PO BID ondansetron mg PO polyethylene glycol 3350 (Miralax) 238 grams PO ONCE polyethylene glycol 3350 (Purelax) grams PO potassium chloride ER 20 mEq PO DAILY simethicone 125 mg PO BID-QID PRN sumatriptan succinate take 1 tab at onset of headache; if no relief may repeat 1 tab after at least 2 hrs; max = 4 tabs/24 hr PO tirzepatide (Mounjaro) 10 mg subcut QWEEK Ventolin HFA 90 mcg/actuation (albuterol sulfate) 2 puffs inhalation QID NS Tobacco use date assessed: 02/24/24 Dental Screening Dental Screen Date: 02/24/24 HPI Referral request HPI Details History of Present Illness The patient is a 55-year-old female presenting with anxiety and depression. These conditions were triggered by being let go from a job she loved over a minor issue. She is currently under the care of a psychiatrist and a psychologist and reports doing well, denying any suicidal or homicidal ideation. The patient is also experiencing right ear discomfort characterized by muffling, which has persisted for a few weeks. She used a small camera to inspect her ear and noted no cerumen or redness???. The plan is to use fluticasone to address potential Eustachian tube dysfunction and report back in a couple of weeks. Review of Systems - Psychiatric: Reports anxiety and depression. Denies suicidal or homicidal ideation. - Ear, Nose, Throat: Reports right ear discomfort with muffling for a few weeks. Denies cerumen or redness. Plan Patient was informed and verbally consented to the use of an ambient scribe for clinic note documentation during this visit. 1. Anxiety The patient is currently managing anxiety with the support of a psychiatrist and psychologist. She reports doing well and denies any suicidal or homicidal ideation. 2. Depression The patient is under the care of a psychiatrist and psychologist for depression management. She is doing well and denies any suicidal or homicidal ideation. 3. Eustachian Tube Dysfunction The patient reports right ear discomfort with muffling for a few weeks. Fluticasone has been recommended to address potential Eustachian tube dysfunction, with a follow-up in a couple of weeks to assess improvement. Discussion Notes The patient was advised to continue her current psychiatric care for anxiety and depression, as she is doing well under the guidance of her psychiatrist and psychologist. For the right ear discomfort, fluticasone was recommended to address potential Eustachian tube dysfunction, with instructions to report back in a couple of weeks to evaluate the effectiveness of the treatment. Patient Instructions - Continue seeing your psychiatrist and psychologist for anxiety and depression management. - Use fluticasone as directed for right ear discomfort and report back in two weeks. - Seek emergency treatment if ear symptoms worsen. 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 Daughter No problems noted. 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 Current occupational exposures/hazards: Yes Cognitive needs: No Hearing needs: No Vision needs: No Questionnaire Thrive Questionnaire Date Thrive assessed: 11/14/24 I am a: Patient What is your living situation today?: I have a steady place to live Within the past 12 months, did the food you bought not last and you didn't have the money to get more?: Never true Within the past 12 months, did you worry whether your food would run out before you got money to buy more?: Sometimes True Do you have trouble paying for medicines?: No Do you have trouble getting transportation to medical appointments?: No Do you have trouble paying your heating and electricity bill?: No Do you have trouble taking care of your child, family member or friend?: No Do you have trouble with day-to-day activities such as bathing, preparing meals, shopping, managing finances, etc.?: No Are you currently unemployed and looking for a job?: No Are you interested in more education?: No Please select the resources that you would like help with: None Currently or been in a relationship where the following occur: No concerns reported THRIVE Score: 1 AUTUMN-7 AMB Questionnaire AUTUMN-7 Date AUTUMN - 7 assessed: 05/12/24 Source: Developed by Drs. Rohan Soriano, Sophia Adams, Jonathan Patten and colleagues, with an educational indu from [employer] Physical exam (Primary Care) Tobacco/Smoking Status: Tobacco use Status Tobacco use date assessed 02/24/24 02/09/25 07:44 Patient Tobacco Use Status Never used Tobacco 04/21/25 12:07 e-Cigarette/Vaping Use Never Used 02/09/25 07:44 Thrive Assessment: Date of Thrive Assessment Date Thrive assessed 11/14/24 02/09/25 07:44 Currently or been in a relationship where the following occur: No concerns reported Telehealth Telehealth Telehealth Platform: [place] Location of provider rendering services: practice address Location of patient: address on file Patient Identification confirmed using: Name, : Yes Telehealth method: video Patient verbally consented to treatment: Yes Patient verbally consented to billing insurance company: Yes Patient informed of any privacy concerns related to visit: Yes Minutes spent on Phone/Video with Pt.: 13 Coding Level of Care Code Tele Est Pt Level 3 (59252) Diagnoses Discomfort of right ear H92.01 Anxiety and depression F41.9; F32.A Assessment & Plan Assessment & Plan (1) Discomfort of right ear: Code(s): H92.01 - Otalgia, right ear Category: Medical (2) Anxiety and depression: Code(s): F41.9 - Anxiety disorder, unspecified; F32.A - Depression, unspecified Category: Medical Plan . Medications: New fluticasone propionate 50 mcg/actuation administer into each nostril 2 sprays intranasal DAILY 16 grams 1RF
== END 2025-05-10 11:04 | disposition home or self-care (01) ==
LOC: HO.HMCC 06:43
PROVIDERS: PCP Nurse Practitioner Family; Visit Provider Nurse Practitioner Family
DX: H92.01 Otalgia, right ear (principal); F41.9 Anxiety disorder, unspecified; F32.A Depression, unspecified

== ENCOUNTER 2025-06-21 11:23 | Outpatient (AMB) | payer OTHER, SELFPAY ==
[2025-06-21 11:34] VITALS: BP 104/70; PULSE 76; RESP 16; O2SAT 99; BMI 22.7
--- NOTE | 2025-06-21 11:34 | MHC.PC.OV ---
Vital Signs 06/21/25 11:34 Height 5 ft 2 in Weight 124 lb BMI 22.7 BP 104/70 Blood Pressure Location Lt brachial Position Sitting Respiration 16 Pulse 76 Pulse Source Pulse Oximeter Pulse Oximetry (%) 99 Intake Visit Reasons: 4m follow up Allergies lisinopril Allergy (Unknown, Verified 05/10/25 07:50) Cough dust mites, ragweed Allergy (Unknown, Uncoded 05/10/25 07:50) Unknown Medication List - Last Reconciled 06/21/25 by MONISHA Jimenez- albuterol sulfate 2.5 mg (3 mL) inhalation QID PRN bisacodyl (Dulcolax (bisacodyl)) 10 mg (2 x 5 mg) PO BEDTIME blood pressure test kit-medium As directed budesonide-formoterol 160-4.5 mcg/actuation (Symbicort) 2 puffs inhalation Q12H cholecalciferol (vitamin D3) 50 mcg PO DAILY dextroamphetamine-amphetamine 25 mg ER (Adderall XR) caps PO esomeprazole magnesium 40 mg PO DAILY famotidine 40 mg PO BEDTIME fluticasone propionate 50 mcg/actuation 2 sprays intranasal DAILY furosemide 20 mg PO QAM hydrocortisone 2.5% (Proctosol HC) 1 appl CO BID-QID PRN levocetirizine 5 mg PO BEDTIME linaclotide (Linzess) 290 mcg PO QAM lorazepam 0.5 mg PO BID PRN 14 days losartan 25 mg PO DAILY lubiprostone (Amitiza) 24 mcg PO BID 90 days magnesium citrate 296 mL PO ONCE menthol-zinc oxide 0.44-20.6 % (Calmoseptine) 1 appl topical QID PRN nebulizers Nebulizer with supplies nortriptyline 50 mg PO BID ondansetron mg PO polyethylene glycol 3350 (Miralax) 238 grams PO ONCE polyethylene glycol 3350 (Purelax) grams PO potassium chloride ER 20 mEq PO DAILY simethicone 125 mg PO BID-QID PRN sumatriptan succinate take 1 tab at onset of headache; if no relief may repeat 1 tab after at least 2 hrs; max = 4 tabs/24 hr PO Ventolin HFA 90 mcg/actuation (albuterol sulfate) 2 puffs inhalation QID NS Tobacco use date assessed: 02/24/24 Dental Screening Dental Screen Date: 02/24/24 HPI 4m follow up HPI Details Chief Complaint The patient presents for follow-up of chronic constipation and mental health concerns. History of Present Illness The patient is a 55-year-old female presenting with follow-up for chronic constipation and mental health management. She has a history of chronic constipation and is currently under the care of a field spec at [facility] practice. Further diagnostic tests are planned, although specific tests have not been determined yet. The patient also reports anxiety and depression, for which she is receiving therapy and psychiatric care. She denies any suicidal or homicidal ideation. She experiences insomnia, which is being addressed by her psychiatrist. Socially, the patient is currently unemployed, which is contributing to her mental health challenges. She is actively seeking employment but is selective about job opportunities, which i agree with. Social History - Employment: Currently unemployed, actively seeking employment, selective about job opportunities Health Maintenance - Encouraged to get labs in the near future Review of Systems - Gastrointestinal: Reports chronic constipation - Psychiatric: Reports anxiety and depression, denies suicidal or homicidal ideation - Sleep: Reports insomnia Physical Exam General: Cooperative, healthy appearing, comfortable, no acute distress and well developed Orientation: Patient oriented x3 Limitations: No limitations Head: Normal to inspection Ears: Hearing grossly normal bilaterally Nose: Normal external nose present Face and sinus: Normal facial exam Eyes: Appearance normal, both eyes and all related structures Neck: Normal visual inspection and Yes full ROM Respiratory: Normal respiratory effort and able to speak in complete sentences. Clear to auscultation bilaterally Cardiovascular: Regular rate and rhythm. Normal S1 and S2 GI: Normal to inspection. Soft to palpation and nontender Skin: No rashes or lesions noted Neuro: Patient oriented x3 Extremities: Normal to inspection Results Plan 1. Chronic Constipation The patient is under the care of a field spec at [facility] for chronic constipation. Further diagnostic tests are planned, though specifics are not yet determined. 2. Anxiety The patient is receiving therapy and psychiatric care for anxiety. 3. Depression The patient is receiving therapy and psychiatric care for depression. 4. Insomnia The patient is working with her psychiatrist to manage insomnia. Discussion Notes I discussed with the patient the importance of continuing her follow-up with the field spec for her chronic constipation and encouraged her to complete any recommended diagnostic tests. We also reviewed her mental health management plan, emphasizing the importance of ongoing therapy and psychiatric care for her anxiety and depression. I advised her to reach out if she has any further questions or concerns. 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 Daughter No problems noted. 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 Current occupational exposures/hazards: Yes Cognitive needs: No Hearing needs: No Vision needs: No Questionnaire PHQ-9 Over the last 2 weeks, how often have you been bothered by any of the following problems? 1. Little interest or pleasure in doing things: not at all 2. Feeling down, depressed, or hopeless: not at all 3. Trouble falling or staying asleep, or sleeping too much: not at all 4. Feeling tired or having little energy: not at all 5. Poor appetite or overeating: not at all 6. Feeling bad about yourself - or that you are a failure or have let yourself or your family down: not at all 7. Trouble concentrating on things, such as reading the newspaper or watching television: not at all 8. Moving or speaking so slowly that other people could have noticed. Or the opposite - being so fidgety or restless that you have been moving around a lot more than usual: not at all 9. Thoughts that you would be better off or of hurting yourself in some way: not at all Total score: 0 Depression Screening Interpretation: Negative Depression Screening Done: Yes 44007 - PHQ-9 Billing: Yes Source: Developed by Drs. Rohan Soriano, Sophia Adams, Jonathan Patten and colleagues, with an educational indu from [employer]. Thrive Questionnaire Date Thrive assessed: 11/14/24 I am a: Patient What is your living situation today?: I have a steady place to live Within the past 12 months, did the food you bought not last and you didn't have the money to get more?: Never true Within the past 12 months, did you worry whether your food would run out before you got money to buy more?: Sometimes True Do you have trouble paying for medicines?: No Do you have trouble getting transportation to medical appointments?: No Do you have trouble paying your heating and electricity bill?: No Do you have trouble taking care of your child, family member or friend?: No Do you have trouble with day-to-day activities such as bathing, preparing meals, shopping, managing finances, etc.?: No Are you currently unemployed and looking for a job?: No Are you interested in more education?: No Please select the resources that you would like help with: None Currently or been in a relationship where the following occur: No concerns reported THRIVE Score: 1 AUTUMN-7 AMB Questionnaire AUTUMN-7 Date AUTUMN - 7 assessed: 05/12/24 Being so restless that it is hard to sit still: 1 = Several days Source: Developed by Drs. Rohan Soriano, Sophia Adams, Jonathan Patten and colleagues, with an educational indu from [employer]. Physical exam (Primary Care) Vital Signs: Last Vital Signs Pulse 76 06/21/25 11:34 Resp 16 06/21/25 11:34 BP 104/70 06/21/25 11:34 Pulse Ox 99 06/21/25 11:34 BMI result Body Mass Index 22.7 Tobacco/Smoking Status: Tobacco use Status Tobacco use date assessed 02/24/24 06/21/25 11:39 Patient Tobacco Use Status Never used Tobacco 06/21/25 11:39 e-Cigarette/Vaping Use Never Used 06/21/25 11:39 PHQ-9: PHQ-9 Score PHQ-9: Total score 0 06/21/25 11:39 Depression Screening Interpretation: Negative Thrive Assessment: Date of Thrive Assessment Date Thrive assessed 11/14/24 06/21/25 11:39 Currently or been in a relationship where the following occur: No concerns reported Coding Level of Care Code Est Pt Level 3 (22606) Diagnoses Anxiety and depression F41.9; F32.A Additional Codes PHQ-9 - 23419 - PHQ-9 Billing: Yes ([id number]) Assessment & Plan Assessment & Plan (1) Anxiety and depression: Code(s): F41.9 - Anxiety disorder, unspecified; F32.A - Depression, unspecified Category: Medical Plan .
--- OUTSIDE RECORDS SUMMARY | 2025-06-21 14:16 | XMS_ITS | Data Portability ---
Author Organization [facility], [facility] Address [address] [place] [address] Care Team Providers Care Engine Watchman Name Role Phone KEVIN BONNER Primary Care Provider [phone] Assessment Encounter Date Assessment Date Assessment LastModified [...] been reviewed and is located in the patient s chart. No interval change. PHYSICAL EXAM: [...] Telephone Encounter Patient Location: Home Physician Location: [place], [place] Time spent with patient: 11 mins [...] been reviewed and is located in the patient s chart. No interval change. PHYSICAL EXAM: [...] the same service when rendered via a [id number] interaction. I discussed with the patient the [...] ING-- EVAL TENDONS, CARTILAGE, PERONEALS 2023 024 [facility] ([facility]), [address], [place], [address], 4 09:52:52 Medication Orders None recorded. Patient TargetsNo targets recorded. Patient InstructionsNo instructions recorded. Reason for Referral None Reported. Results Created Date Observation Date Name Description Value Unit Range Abnormal Flag Note LastModifiedBy Organization Detail LastModifiedTime 02/25/20 24 02/25/2024 MRI, ankle , w/o contr ast [facility] Access ion Number : [id number] Patien t Name: Stephen Velasquez Record Number : [id number] Date of : 1969 Date of Exam: 2023 Referr ing Physic issac: [facility] [address], [address] [place] [address] Exam: MR Ankle (C-) CPT 93831 - Right Room Descri ption: [place] [facility]ion 3T MR Ankle (C-) CPT 36608 CLINIC AL INDICA TION: Reason For Exam: [...] ly Signed By: Saeed Brambila rd, MD [facility] ([facility]) [address], [place], [address], 02/25/2024 13:04:31 05/07/20 24 04/01/2021 imagi ng/di [...] [email or web address] Not Available 04/09 04:02:24 Result Notes Documentation Provider Name and Address Organization Details Recorded Time Mri, Ankle, W/o Contrast : [facility] Accession Number: [id number] Patient Name: Radha Mercado Date of : 1970 Date of Exam: 02-25-2024 Referring Physician: Danilo Rothman [facility] ([facility]) [address], [address] [place] [address] Exam: MR Ankle (C-) CPT 75983 - Right Room Description: [facility] 3T MR Ankle (C-) CPT 19582 CLINICAL INDICATION: Reason For Exam: M25.571 - Pain in right ankle and joints of right foot, , RIGHT ANKLE PAIN/SWELLING-- EVAL TENDONS, CARTILAGE, PERONEALS TECHNIQUE: MR of the right ankle was performed without intravenous contrast. COMPARISON: None FINDINGS: Bone: Alignment and bone marrow signal are within normal limits. No evidence of acute fracture or bone marrow contusion. Articular cartilage: The articular cartilage is of normal thickness. No focal defects are seen. Ligaments: Syndesmotic ligaments are intact. Intermediate signal within the substance of the deltoid ligament and spring ligament. Periligamentous edema signal about the LCL complex. Lisfranc ligament is intact. Tendons: Longitudinal split tear of the peroneus brevis tendon centered just distal to the lateral malleolus and peroneus longus tendinosis. Fluid signal distends the peroneal tendon sheath. The remainder of the flexor and extensor tendons are intact. Achilles insertion and plantar fascia are intact. Small plantar calcaneal spur IMPRESSION: Longitudinal split tear of the peroneus brevis tendon, peroneus longus tendinosis and signs of peroneal tenosynovitis Intermediate grade sprains of the deltoid ligament and spring ligament Low-grade sprain of the LCL complex Small plantar calcaneal spur Electronically Signed By: Saeed leblanc [place] - [facility] 02/25/2024 13:04:31 Problems Name Problem SNOMED Code Status Onset Date Resolution Date Notes Provider Name and Address Organization Details Recorded Time No complaint s 510606368 Active Status: 'I'; Not Available [facility] 4 09:23:43 Low back pain 456334564 Active 2019 Problem Code: M54.5; Problem Code Type: ICD-10; Status: 'A'; Not Available [facility] 4 11:59:03 Pain of left knee joint 614682228631 107 Active 2019 Problem Code: M25.562; Problem Code Type: ICD-10; Status: 'A'; Not Available [facility] 4 11:59:03 Degenerat ion of cervical intervert ebral disc 48801784 Active 2019 Problem Code: M50.322; Problem Code Type: ICD-10; Status: 'A'; Not Available [facility] 4 11:59:03 Problem Notes None recorded. Medical Equipment None Reported. [...] 157.48 cm JEAN PAUL DILLARD [place] - [facility] 02/16/2024 13:53:03 Social History None recorded. Functional Status None recorded. Mental Status None recorded. Family History Nothing Reported. Medical History No medical history recorded. Gynecological HistoryNo gynecological history recorded. Obstetrics History GPAL:G 0 P 0 0 0 0 Past Encounters Encounter ID Performer Location Encounter Start Date Encounter Closed Date Diagnosis/Indication Diagnosis SNOMED-CT Code Diagnosis ICD10 Code Diagnosis IMO Codes Diagnosis Note [id number] MD Lacey Dalal [address] [place] [address] 02/16/2024 13:34:35 03/16/2024 14:33:55 Pain of right ankle joint 5306577588 5980039 M25.571 Peroneal t endinitis of right lower limb 5364655880 18440 M76.71 [id number] MD Lacey Dalal [address] [place] [address] 03/11/2024 10:59:23 04/04/2024 10:12:26 Peroneal tendinitis of right lower limb 8665345735 44186 M76.71 Health Concerns Section Related Observation LastModified by Organization Detai ls LastModified Time None Recorded Concern Status LastModified by Organization Details LastModified Time None Recorded Advance Directives Directive None Recorded Payers Insurance Date Sequence Insurance Name Policy Number Policy Bell Covered Member ID Bell Member ID Guarantor Name 05/10/2024 1 [facility] (MEDICAID HMO) TRACIE Mercado [id number] Radha Mercado Notes Date Note Type Note Provider Name and Address Organization Details Recorded Time 02/16/2024 text/html ROS as noted in the HPI Danilo Rothman MD [address], [place], [address], [facility] 02/16/2024 15:22:21 03/11/2024 text/html ROS as noted in the HPI Danilo Rothman MD [address], [place], [address], [facility] 03/11/2024 12:56:08 OBGyn Episode No OBEpisode recorded.
--- OUTSIDE RECORDS SUMMARY | 2025-06-21 14:16 | XMS_ITS | Data Portability ---
Author Organization [facility] Address [address] [address] Care Team Providers Care Mat Cutter Name Role Phone KEVIN BONNER Primary Care Provider FARNAZ LINDSAY Referring Provider [phone] Assessment Encounter Date Assessment Date Assessment LastModified [...] were palpated with reproduction of her pain inthe right trapezius muscle and right paraspinal muscle inthe cervical spine. Trial of trigger point injection in right trapezius muscle under ultrasound guidance were discussed with her. The risks and benefits of the procedure were discussed and she wishes to proceed and an appointment has been made for the same. [email or web address] Not available 11/08/2020 11:09:52 11/08/2020 11/08/2020 Radha Nicole is a 50 year old woman with complaints of neck pain and low back pain. She also has complaints of neck pain radiating into right upper back. She has myofascial pain syndrome in her right upper back. Trigger points were palpated with reproduction of her pain inthe right trapezius muscle and right paraspinal muscle inthe cervical spine. She is here for a [...] recommended. The risks and benefits of the procedure were discussed in detail. She wishes to proceed. An appointment has been booked for the same. She needs a semi driver on the day of the procedure. [email or web address] Not available 11/12/2020 16:25:29 11/13/2020 11/13/2020 Radha [...] and benefits of the procedure were discussed in detail. She wishes to proceed. She will follow up in four weeks. [email or web address] Not available 11/15/2020 14:57:06 11/11/2021 11/11/2021 Radha Nicole is a 51 year old woman with complaints of neck pain and low back pain. She also has complaints of neck pain radiating into right upper back. She has myofascial pain syndrome in her right upper back. Trigger points were palpated with reproduction of her pain inthe right trapezius muscle and right paraspinal muscle inthe cervical spine. I recommend a trigger point injection in right trapezius muscle under ultrasound guidance . The risks and benefits of the procedure were discussed and she wishes to proceed. An appointment has been booked for the same. She needs a semi driver on the day of the procedure. She [...] recommended. The risks and benefits of the procedure were discussed in detail. She wishes to proceed. Insurance approval needed . She needs a semi driver on the day of the procedure. [email or web address] Not available 11/11/2021 11:56:01 11/21/2021 11/21/2021 Radha Nicole is a 51 year old woman with complaints of neck pain and low back pain. She also has complaints of neck pain radiating into right upper back. She has myofascial pain syndrome in her right upper back. Trigger points were palpated with reproduction of her pain inthe right trapezius muscle and right paraspinal muscle inthe cervical spine. She is here for a [...] recommended. The risks and benefits of the procedure were discussed in detail. She wishes to proceed. An appointment has been booked for the same. Insurance approval needed. She needs a semi driver on the day of the procedure. [email or web address] Not available 11/21/2021 10:32:14 Plan of Treatment Reminders Order Date Submit Date Provider Last Modified By Organization Details Last Modified Time Details Appointments None recorded. Lab None recorded. Referral None recorded. Procedures None recorded. Surgeries None recorded. Imaging MRI, lumbar spine, w/o contrast 2020 021 [facility] ([facility] [address], [place], [address], 13:35:04 Medication Orders lorazepam 1 mg tablet 2021 022 [facility] #[id number], [address] [place], [address], 10:34:13 Patient TargetsNo targets recorded. Patient Instructions Encounter Date Encounter Id Patient Instructions Last Modified By Organization Details Last Modified Time 11/05/2020 [id number] She was advised against bed rest lasting longer than four days and to continue activities as tolerated. [email or web address] Not available 11/06/2020 09:38:47 11/13/2020 [id number] She was advised against bed rest lasting longer than four days and to continue activities as tolerated. [email or web address] Not available 11/15/2020 14:57:19 11/21/2021 [id number] She was advised against bed rest lasting longer than four days and to continue activities as tolerated. [email or web address] Not available 11/21/2021 10:32:17 Reason for Referral None Reported. Results Created Date Observation Date Name Description Value Unit Range Abnormal Flag Note LastModifiedBy Organization Detail LastModifiedTime 11/07/19 21 11/06/2020 MRI, lumba r spine , w/o contr ast No observ ation record ed. 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 Electr onical ly Signed By: Fara mesa MD [facility] ([facility]) [address] [place], [address], 11/08/2020 14:52:44 Result Notes Documentation Provider Name and Address Organization Details Recorded Time Mri, Lumbar Spine, W/o Contrast : [facility] Accession Number: [id number] Patient Name: Radha Bruner Record Number: [id number] Date of : 1970 Date of Exam: 11-06-2020 Referring Physician: [facility] [address] [address] [place] [address] Exam: MR Lumbar Spine (C-) CPT 69971 Room Description: [facility] 1.5 HISTORY: Back pain and left leg pain. History of multiple falls one week ago. Left leg weakness. COMPARISON: Lumbar spine x-rays, 02/19/2013. FINDINGS: ALIGNMENT, VERTEBRAE, MARROW, AND DISCS: Vertebral body height, curvature, and alignment are normal. There is disc desiccation from L2-S1 with minimal disc space narrowing at L2-3. Bone marrow signal is within normal limits. CONUS: The visualized lower thoracic cord is normal in caliber and signal. The conus terminates at T12-L1. PARASPINAL TISSUES: Retroperitoneal and posterior paraspinal soft tissues are unremarkable. DETAILED FINDINGS BY LEVEL: L1-L2: There is no significant canal or neural foraminal stenosis. L2-L3: There is very minimal disc bulging and facet spurring without canal stenosis. A tiny left foraminal protrusion with annular tear is noted, though there is no significant neural foraminal compromise. L3-L4: There is minimal disc bulging and facet spurring without canal or neural foraminal stenosis. L4-L5: There is minimal disc bulging and facet spurring without canal stenosis. Small bilateral foraminal annular tears are seen. There is only minimal bilateral neural foraminal stenosis. L5-S1: There is diffuse disc bulging with a superimposed central protrusion as well as facet spurring, though there is no significant canal stenosis. There is minimal left neural foraminal stenosis. IMPRESSION: 1. Only minor degenerative changes are seen as described without canal stenosis or evidence of nerve root impingement. Electronically Signed By: Fara Lynn MD [address] [facility] , [address], [place], [address], [facility] 11/08/2020 14:52:44 Problems Name Problem SNOMED Code Status Onset Date Resolution Date Notes Provider Name and Address Organization Details Recorded Time Lumbar radiculopathy 580776300 Active Rj farias MD [address] , [address], [place], [address], [place] [facility] 14:42:32 Degeneration of lumbar intervertebral disc 51619609 Active Rj farias MD [address] , [address], [place], [address], [place] [facility] 15:28:42 Degeneration of cervical intervertebral disc 28692580 Active Rj farias MD [address] , [address], [place], [address], [place] [facility] 15:28:59 Muscle pain 49551554 Active Rj farias MD [address] , [address], [facility] [place], [address], [place] [facility] 15:29:10 Problem Notes None recorded. Procedures Surgical History Date Name Laterality Status Provider Name and Address Organization Details Recorded Time 11/22/19 22 Trigger Point Injections under ultrasound guidance completed Rj Lynn MD [address] [facility] , [address], [place], [address], [place] [facility] 11/21/2021 10:30:39 11/14/19 21 Lumbar Epidural steroid injection under fluoroscopic guidance completed Rj Lynn MD [address] [facility] , [address], [place], [address], [place] [facility] 11/15/2020 14:34:49 11/09/19 21 Trigger Point Injections under ultrasound guidance completed Rj Lynn MD [address] [facility] , [address], [place], [address], [place] [facility] 11/12/2020 16:21:51 hysterectomy completed Rj Lynn MD [address] [facility] , [address], [place], [address], [place] [facility] 11/05/2020 14:43:01 cholecystectomy completed Rj Lynn MD [address] [facility] , [address], [place], [address], [place] [facility] 11/05/2020 14:43:09 Breast reduction completed Rj Lynn MD [address] [facility] , [address], [place], [address], [facility] 11/05/2020 14:43:22 lumpectomy of breast completed Rj Lynn MD [address] [facility] , [address], [place], [address], [facility] 11/05/2020 14:43:36 section completed Rj Lynn MD [address] [facility] , [address], [place], [address], [facility] 11/05/2020 14:43:49 Imaging Results None recorded. Procedure Notes None recorded. Medical Equipment None [...] verbal numeric rating [Score] - Reported Systolic And Diastolic Provider Name and Address Organization Details Last Updated DateTime 1 162.56 cm 28.3 kg/m2 57361.7 4 g 91 /min 97 % 97 % 9 131/92 mm[Hg] Rj farias MD [address] , [address], [place], [address], [place] [facility] 14:35:25 Date Recorded Body height Heart rate Oxygen saturation Oxygen saturation in Arterial blood by Pulse oximetry Systolic And Diastolic Provider Name and Address Organization Details Last Updated DateTime 1 162.56 cm 67 /min 97 % 97 % 136/88 mm[Hg] Rj farias MD [address] , [address], [place], [address], [place] [facility] 1 13:49:42 Date Recorded Body height Heart rate Oxygen saturation Oxygen saturation in Arterial blood by Pulse oximetry Systolic And Diastolic Provider Name and Address Organization Details Last Updated DateTime 1 162.56 cm 86 /min 92 % 92 % 123/85 mm[Hg] Yvonne Bernal [facility] 1 13:37:28 Date Recorded Heart rate Oxygen saturation Oxygen saturation in Arterial blood by Pulse oximetry Systolic And Diastolic Provider Name and Address Organization Details Last Updated DateTime 11/21/2021 97 /min 99 % 99 % 145/90 mm[Hg] Yvonne Bernal [facility] 2 09:31:25 Social History Question Answer Notes LastModified by Organizat ion Details LastModified Time Tobacco Smoking Status Never Smoker Rj Lynn MD [address] , [address], [place], [address], [place] [facility] 11/05/2020 14:45:43 Which Illicit Or Recreational Drugs Have You Used? None Information not available 11/05/2020 Live Alone Or With Others? With Others Information not available 11/05/2020 Marital Status Informati on not available 11/05/2020 Sex: Unknown Functional Status Question Answer Note LastModified by Organizat ion Details LastModified Time What is your level of alcohol consumption? 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 Family History Relationship [...] ICD10 Code Diagnosis IMO Codes Diagnosis Note [id number] Rj Lynn MD PAIN OFFICE [address] [place] [address] 11/05/2020 14:23:35 11/06/2020 09:39:50 Lumbar radiculopathy 925554631 M54.16 Degenerati on of lumbar intervertebral disc 30837515 M51.36 Degenerati on of cervical intervertebral disc 16422820 M50.30 Muscle pain 62043469 M79 .10 04279 Rj Lynn MD PAIN OFFICE [address] [place] [address] 11/08/2020 13:43:42 11/12/2020 16:26:28 Lumbar radiculopathy 011905095 M54.16 Degenerati on of lumbar intervertebral disc 42100461 M51.36 Degenerati on of cervical intervertebral disc 37528600 M50.30 Muscle pain 09054279 M79 .10 83577 Rj Lynn MD [facility] [address] [place] [address] 11/13/2020 13:22:30 11/15/2020 15:00:13 Lumbar radiculopathy 062471067 M54.16 Degenerati on of lumbar intervertebral disc 59906970 M51.36 Degenerati on of cervical intervertebral disc 07038891 M50.30 Muscle pain 41597504 M79 .10 49962 Rj Lynn MD PAIN OFFICE [address] [place] [address] 11/11/2021 08:58:38 11/11/2021 11:56:32 Lumbar radiculopathy 703372491 M54.16 Degenerati on of lumbar intervertebral disc 33037087 M51.36 Degenerati on of cervical intervertebral disc 78038103 M50.30 Muscle pain 10677214 M79 .10 17374 Rj Lynn MD PAIN OFFICE [address] [facility] [place] [address] 11/21/2021 09:15:41 11/21/2021 10:38:25 Lumbar radiculopathy 236756723 M54.16 Degenerati on of lumbar intervertebral disc 79097658 M51.36 Degenerati on of cervical intervertebral disc 74156232 M50.30 Muscle pain 43541764 M79 .10 Anxiety 86383371 F41.9 Health Concerns Section Related Observation LastModified by Organization Detai ls LastModified Time None Recorded Concern Status LastModified by Organization Details LastModified Time None Recorded Advance Directives Directive None Recorded Payers Insurance Date Sequence Insurance Name Policy Number Policy Bell Covered Member ID Bell Member ID Guarantor Name 11/18/2021 1 [facility] NET PLAN (MEDICAID HMO) TRACIE Bruner [id number] Radha Nicole Notes Date Note Type Note Provider Name and Address Organization Details Recorded Time 11/05/2020 text/html Radha Nicole is a 50 year old [...] facet joint spurs. Rj Lynn MD [address] [facility] , [address], [place], [address], [place] [facility] 11/08/2020 11:09:57 11/08/2020 text/html She is here for a trigger point injection in her right trapezius muscle under ultrasound guidance. Rj Lynn MD [address] [facility] , [address], [place], [address], [place] [facility] 11/13/2020 09:46:44 11/13/2020 text/html She is here for a trial of lumbar epidural steroid injection under fluoroscopic guidance. Rj Lynn MD [address] [facility] , [address], [place], [address], [place] [facility] 11/16/2020 08:34:20 11/11/2021 text/html [...] facet joint spurs. Rj Lynn MD [address] [facility] , [address], [place], [address], [facility] 11/11/2021 13:54:22 11/21/2021 text/html She is here for a trigger point injection in her right trapezius muscle under ultrasound guidance. Rj Lynn MD [address] [facility] , [address], [place], [address], [facility] 11/21/2021 14:34:18 OBGyn Episode No OBEpisode recorded.
--- OUTSIDE RECORDS SUMMARY | 2025-06-21 14:16 | XMS_ITS | Clinical Summary ---
Author Organization [facility] Address [address] [place] [address] Care Team Providers Care Ladle Liner Name Role Phone Unavailable Primary Care Provider [...]
== END 2025-06-21 11:54 | disposition home or self-care (01) ==
LOC: HO.HMCC 11:23
PROVIDERS: PCP Nurse Practitioner Family; Visit Provider Nurse Practitioner Family
DX: F41.9 Anxiety disorder, unspecified (principal); F32.A Depression, unspecified

== ENCOUNTER 2025-06-21 11:23 | Outpatient (REF) | payer OTHER, SELFPAY ==
[2025-06-21 13:05] LABS: MANUAL DIFF FLAG NO
[2025-06-21 13:18] LABS: Hematocrit 43.8 % (37.0-47.0); Hemoglobin 14.4 g/dl (12.0-16.0); Imm Gran Abs Auto 0.02 X10*3/uL (0.00-0.03); Imm Gran Pct Auto 0.2 % (0.0-0.4); Lymphocytes Absolute Auto 1.8 X10*3/uL (1.2-4.9); Mean Corpuscular HGB Conc 32.9 g/dl (31.0-35.0); Mean Corpuscular Hemoglobin 28.6 pg (27.0-33.0); Mean Corpuscular Volume 87.1 fL (80.0-98.0); NRBC Abs Auto 0.000 X10*3/uL (0.0-0.012); NRBC Pct Auto 0.0 /100WBC (0.0-0.2); Platelet Count 355 X10*3/uL (160-400); Red Blood Count 5.03 X10*6/uL (4.20-5.50); White Blood Count 8.6 X10*3/uL (4.8-10.8)
[2025-06-21 16:16] LABS: Appearance Urine Clear; Glucose Urine UA Negative (Negative); PH 7.0 (5.0-9.0); Specific Gravity - Urine <= 1.005 (1.005-1.025)
[2025-06-21 16:39] LABS: Alanine Aminotransferase 21 U/L (0-31); Albumin Level 4.5 g/dL (3.5-5.0); Alkaline Phosphatase 71 U/L (39-117); Anion Gap 13 (12-20); Aspartate Amino Transferase 21 U/L (5-31); Blood Urea Nitrogen 14 mg/dL (9-16); Calcium 9.4 mg/dL (8.4-10.2); Carbon Dioxide 29 mmol/L (22-29); Chloride 102 mmol/L (96-108); Cholesterol 224 mg/dL (<200); Estimated Glomerular Filt Rate 59; HDL Cholesterol 64 mg/dL (>40); Potassium 4.1 mmol/L (3.3-5.1); Sodium 140 mmol/L (135-145); Total Protein 7.4 g/dL (6.5-8.0); Triglycerides 110 mg/dL (<150)
== END 2025-06-21 11:24 | disposition home or self-care (01) ==
LOC: HO.HMGCLDS 11:23
PROVIDERS: PCP Nurse Practitioner Family; Visit Provider Nurse Practitioner Family
DX: E87.6 Hypokalemia (principal); K59.00 Constipation, unspecified; F41.9 Anxiety disorder, unspecified; F32.A Depression, unspecified; Z79.899 Other long term (current) drug therapy
CPT/HCPCS: 36415; 80053; 80061; 81003; 84443; 85025; 96127; 99212